=== PATIENT | female | born 1955 | race Caucasian/White ===

== ENCOUNTER 2019-01-12 10:30 | Inpatient (IN) ==
[2019-01-12] MEDS ORDERED: SODIUM CHLORIDE 0.9% 1000ML 1,000 ML IV ONE (10:34)
--- NOTE | 2019-01-12 11:07 | XRay Report ---
XR chest 1V portable CLINICAL HISTORY: Atypical chest pain COMPARISON STUDY: No previous studies for comparison. FINDINGS: The cardiac and mediastinal contours are normal. There is no evidence of focal pulmonary co nsolidation. There is no evidence of failure. No pleural effusions are visualized.[ IMPRESSION: No active disease in the chest. Electronically signed by: Charlie Reynaga M.D. 01/12/2019 11:06 AM
[2019-01-12 11:12] LABS: Basophils # (auto) 0.02 K/uL (0-0.2); Basophils % (auto) 0.2 %; Eosinophils # (auto) 0.06 K/uL (0-0.5); Eosinophils % (auto) 0.7 %; Hematocrit (blood only) 40.8 % (37-47); Hemoglobin 14.4 g/dL (12.0-16.0); Immature Granulocytes # (auto) 0.01 K/uL (0.00-0.02); Immature Granulocytes % (auto) 0.1 %; Lymphocytes # (auto) 3.06 K/uL (1.2-3.4); Lymphocytes % (auto) 33.6 %; Mean Corpuscular Hgb Conc 35.3 g/dL (32-36); Mean Corpuscular Volume 90.9 fL (80-100); Mean Platelet Volume 10.5 fL (7.4-10.4); Monocytes # (auto) 0.73 K/uL (0.11-0.59); Neutrophils # (auto) 5.23 K/uL (1.4-6.5); Neutrophils % (auto) 57.4 %; Platelet Count 224 K/uL (130-400); RDW Coefficient of Variation 13.6 % (11.5-14.5); RDW Standard Deviation 45.2 fL (36.4-46.3); Red Blood Count 4.49 M/uL (4.2-5.4); White Blood Count 9.11 K/uL (4.8-10.8)
[2019-01-12 11:21] LABS: Appearance Urine Clear (Clear); Bacteria Urine Automated Negative (Negative); Bilirubin Urine Negative (Negative); Blood Urine Negative (Negative); Color Urine Yellow; Epithelial Cell Urine Auto 20-30 /lpf (0-5); Glucose Urine UA Negative (Negative); Ketones Urine Negative (Negative); Leukocyte Esterase Urine Trace (Negative); Nitrite Urine Negative (Negative); Protein Urine Negative (Negative); RBC Urine Automated 0-4 /hpf (0-4); Specific Gravity Urine 1.013 (1.000-1.030); Urobilinogen Urine Negative (Negative)
[2019-01-12 11:24] LABS: INR 1.1 (0.9-1.1); Prothrombin Time 10.9 Seconds (9.0-12.0)
[2019-01-12 11:29] LABS: Alanine Aminotransferase 41 U/L (12-78); Albumin Level 3.7 gm/dl (3.4-5.0); Aspartate Aminotransferase 36 U/L (15-37); BUN Creatinine Ratio 11.5 (10-20); Blood Urea Nitrogen 10 mg/dl (7-18); Calcium 8.8 mg/dl (8.5-10.1); Carbon Dioxide 23 mmol/L (21-32); Chloride 111 mmol/L (98-107); Creatinine Clr Calc Pharmacy 60.6 ml/min; Est GFR (African American) 84.5; Est GFR (Non-African American) 72.9; Glucose 126 mg/dl (70-99); Magnesium 2.1 mg/dl (1.8-2.4); Potassium 3.8 mmol/L (3.5-5.1); Sodium 141 mmol/L (136-145)
[2019-01-12 11:40] LABS: Albumin Globulin Ratio 0.9 (0.9-2); Alkaline Phosphatase 53 U/L (45-117); Bilirubin,Total 0.4 mg/dl (0.2-1); Globulin 4.2 gm/dl (2.5-4.0); Phosphorus 3.6 mg/dl (2.5-4.9); Total Protein 7.9 gm/dl (6.4-8.2); Troponin I < 0.015 ng/ml (0-0.045)
[2019-01-12] MEDS ORDERED: ASPIRIN CHEW 324 MG PO STA (12:08)
[2019-01-12] MEDS ORDERED: METOPROLOL TARTRATE 1 MG/ML VIAL IV PRN (12:20)
[2019-01-12] MEDS ORDERED: LORazepam 0.5 MG/1 ML VIAL IV PRN (12:20)
--- NOTE | 2019-01-12 12:53 | History & Physical Report ---
Date of Service January 12, 2019 Assessment & Plan (1) Atrial fibrillation: Reportedly there is monitor strips recorded showing atrial fibrillation we will have the patient on no formal rate controlling medication at this time given her heart rate in the 60s. We will start heparin drip with standard and have PRN metoprolol if needed. Echocardiogram will be performed to evaluate the dimensions of her atria and valvular heart disease and will trend her troponins is initial troponin was negative. If you have difficulty controlling her rate because of her blood pressure limiting beta-kristen use will reduce her losartan dosing. Patient's friend sees Dr. Michel Barone she is interested in seeing him if possible (2) Hypertension: Patient's hypertension is usually controlled with losartan 100 the morning and 50 at night we will continue that regimen unless we need to modify due to blood pressure limiting rate controlling agents (3) Diabetes: Patient is typically controlled metformin 750 twice daily we will use a very loose sliding scale starting at 180 and put on a carbohydrate friendly diet Patient takes gabapentin for diabetic neuropathy 300 twice daily (4) Hypothyroidism: Patient's TSH was checked on presentation and is within normal limits she will continue her Synthroid 50 mcg a day (5) Depression: Patient has been through increased stressors with her who was an alcoholic and limited by stroke in her mother who recently and she did sell her state. She is on Zoloft 100 twice daily and will continue this medicine (6) Tobacco abuse: Patient smokes a pack to pack and half a day of self rolled cigarettes she was counseled on smoking cessation does request a nicotine patch History of Present Illness Primary Care Provider: Aamir Bain MD Patient's with a [place] area, she presents with a rapid heart rate. Patient is been under increasing stressors of late having her mother's home to sell and her is debilitated with a stroke. She saw her doctor yesterday complained of a rapid heartbeat. They ordered a EKG today which confirmed what looks to be A. fib RVR. The patient was in and out of A. fib twice here in our ER and reportedly did receive some medicine by the ambulance in the way here. Upon my exam she was [address] gatica the ER doctor confirmed he believes he saw atrial fibrillation on the monitor. Patient is a diabetic smoker hypertensive does have a Fredi vas risk score. We will anticoagulate her at this time however will not start rate controlling medications as her heart rate is in the 60s. Blood pressure is also controlled with losartan. Patient denies any medical indiscretion she only drinks 2 cups of caffeine a day she keeps up-to-date on her Synthroid and her TSH is normal on presentation. As well as her electrolytes. She is in no elevation of troponin with a rapid rate Allergies Allergy/AdvReac Type Severity Reaction Status Date / Time ciprofloxacin [From Cipro] Allergy Unknown Unverified 01/12/19 11:10 Penicillins Allergy Unknown Unverified 01/12/19 11:10 Sulfa (Sulfonamide Allergy Unknown Unverified 01/12/19 11:10 Antibiotics) PAIN MEDICATIONS Allergy Unknown Uncoded 01/12/19 11:17 Home Medications Home Medications Medication Instructions Recorded Confirmed Type aspirin [Aspirin Low Dose] 81 mg PO DAILY 01/12/19 01/12/19 History gabapentin 300 mg PO BID 01/12/19 01/12/19 History levothyroxine 50 mcg PO DAILY 01/12/19 01/12/19 History losartan 50 mg PO QPM 01/12/19 01/12/19 History losartan 100 mg PO DAILY 01/12/19 01/12/19 History metformin 750 mg PO BID 01/12/19 01/12/19 History sertraline [Zoloft] 100 mg PO BID 01/12/19 01/12/19 History Past Med/Surg History Medical History Hypothyroidism Hypertension Diabetes Anxiety Depression History of cervical cancer History of hysterectomy Small bowel obstruction Patient had surgery for this 2018 Tobacco abuse Surgical History H/O hernia repair Patient has mesh in place H/O lumpectomy History of cholecystectomy Family History Mother Stroke Social History Preferred Language: Kosovan Communication Ability: Effective Beliefs That Will Affect Care: None Current Living Situation: Spouse and Family Feels Safe at Home: Yes Safety Concerns: Feels Safe At This Time Smoking Status: Current every day smoker Tobacco Type: cigarettes ; Cigarettes Per Day: 40 ; Tobacco Cessation Education Requested by Patient: No Hx Alcohol Use: No Hx Substance Use: No Review of Systems Review of Systems: ROS: well nourished well developed. No double vision blurry vision No problems with speech or swallowing No palpitations, chest pain or pressure No Wheezing or breathing issues, chronic daily cough No abdominal pain nausea vomiting diarrhea associate with metformin No burning urine urine frequency or changes in color Diabetic neuropathy of feet and knees No skin rashes or oral lesions No unusual bruising or bleeding No focused back pain or numbness or loss of strength No changes in memory or confusion Physical Exam Physical Exam: The patient appeared well nourished and normally developed. No current distress Vital signs as documented. Sinus rhythm rate of 60 Head exam is unremarkable. normocephalic, atraumatic Neck is without jugular venous distension, thyromegaly, or lymphademopathy Lungs are clear to auscultation and percussion. Cardiac exam reveals Rhythm is regular. No murmurs are heard Abdominal exam reveals normal bowel sounds, no masses, no organomegaly Extremities are nonedematous and both pedal pulses are present Neurologic exam is A&Ox3, no focal deficits, strength is equal bilateral Psychologically seems anxious discussed her stress freely Skin is warm Dry without bruises or lesions Results & Data Vital Signs (Past 12 Hours) Vital Signs Temp Pulse Pulse Resp BP BP Pulse Ox 01/12/19 11:39 63 18 116/47 L 96 01/12/19 10:47 98 01/12/19 10:40 36.7 C 105 H 16 145/87 H 98 EKG shows normal sinus rhythm with a rate of [address] or T wave changes Chest x-ray shows no active disease in the chest PG Care Time/CCT Total # of Minutes Spent Total Time Spent with Patient: Total time spent is greater than 50% in coordination of care (as documented) at patient's floor/unit and/or counseling patient:
[2019-01-12] MEDS ORDERED: ALUMINUM/MAGNESIUM SUSP 30 ML UDC PO PRN (14:08)
[2019-01-12] MEDS ORDERED: GLUCAGON FOR INJ 1 MG VIAL SQ PRN (14:08)
[2019-01-12] MEDS ORDERED: CARBOHYDRATES FOR HYPOGLYCEMIA PO PRN (14:08)
[2019-01-12] MEDS ORDERED: ONDANSETRON INJ 2 MG/ML 2 ML VIAL IV PRN (14:08)
[2019-01-12] MEDS ORDERED: HEPARIN SODIUM/DEXTROSE 25,000 UNITS/500 ML BAG IV SCH (14:08)
[2019-01-12] MEDS ORDERED: GLUCOSE 10 TABS/TUBE PO PRN (14:08)
[2019-01-12] MEDS ORDERED: GLUCOSE 40% GEL 15 GM TUBE PO PRN (14:08)
[2019-01-12] MEDS ORDERED: DEXTROSE 50% 50 ML SYRINGE IV PRN (14:08)
[2019-01-12] MEDS ORDERED: NITROGLYCERIN SL 0.4 MG/TAB TAB SL PRN (14:08)
[2019-01-12] MEDS ORDERED: ACETAMINOPHEN 325 MG TAB PO PRN (14:08)
[2019-01-12 15:01] LABS: Partial Thromboplastin Ratio 0.9; Partial Thromboplastin Time 24.5 Seconds (21.0-31.0)
[2019-01-12] MEDS ORDERED: HEPARIN IV BOLUS 4,000 UNITS in SYRINGE 0 ML IV ONE ×2 (15:30→22:30)
[2019-01-12] MEDS: NICOTINE 21 MG/24 HR TDSY TD SCH (15:36)
--- NOTE | 2019-01-12 15:53 | Emergency Department Note ---
Entered by Ayala Draper acting as a scribe for History of Present Illness General Chief complaint: Cardiac Assessment Time Seen by Provider: 01/12/19 10:31 Source: patient and EMS Mode of arrival: EMS History of Present Illness Provider complaint: atrial fibrillation Onset (ago): minute(s) (Prior to arrival) Location: chest Maximum Pain Intensity: 0 Quality: + other (atrial fibrillation) Associated symptoms: + shortness of breath and + other (Negative pain with exertion); no chest pain and no nausea/vomiting Treatments prior to arrival: other (Medication administered by EMS) The patient is a 63 year old female who presents to the Emergency Room with complaints of atrial fibrillation that she was alerted about just prior to arrival. EMS states that prior to arrival the patient was in atrial fibrillation and went down to 90 after medication. The patient states that for four - five days ago she noticed that her heartbeat was fast but she thought it was due to increased stress. The patient states that she went to the doctor yesterday and t hey noticed she was tachycardic. The patient had a scheduled EKG today and they noticed she was in afib, The patient expresses that she is short of breath. The patient denies nausea, vomiting, diarrhea, chest pain, or pain with exertion. The patient states that she has been spending most of her time cleaning out her mother's house out. The patient denies the use of alcohol, marijuana, but does smoke a pack and a half a day. The patient denies a history of ulcers or abdominal bleeding. Home Medications Home Medications Medication Instructions Recorded Confirmed Type aspirin [Aspirin Low Dose] 81 mg PO DAILY 01/12/19 01/12/19 History gabapentin 300 mg PO BID 01/12/19 01/12/19 History levothyroxine 50 mcg PO DAILY 01/12/19 01/12/19 History losartan 50 mg PO QPM 01/12/19 01/12/19 History losartan 100 mg PO DAILY 01/12/19 01/12/19 History metformin 750 mg PO BID 01/12/19 01/12/19 History sertraline [Zoloft] 100 mg PO BID 01/12/19 01/12/19 History Allergies Allergy/AdvReac Type Severity Reaction Status Date / Time ciprofloxacin [From Cipro] Allergy Unknown Unverified 01/12/19 11:10 Penicillins Allergy Unknown Unverified 01/12/19 11:10 Sulfa (Sulfonamide Allergy Unknown Unverified 01/12/19 11:10 Antibiotics) PAIN MEDICATIONS Allergy Unknown Uncoded 01/12/19 11:17 Past Med/Surg History Medical History Hypothyroidism Hypertension Diabetes Anxiety Depression History of cervical cancer History of hysterectomy Small bowel obstruction Patient had surgery for this 2018 Tobacco abuse Surgical History H/O hernia repair Patient has mesh in place H/O lumpectomy History of cholecystectomy Family History Mother Stroke Social History Preferred Language: Macedonian Communication Ability: Effective Beliefs That Will Affect Care: None Current Living Situation: Spouse and Family Feels Safe at Home: Yes Safety Concerns: Feels Safe At This Time Smoking Status: Current every day smoker Tobacco Type: cigarettes Cigarettes Per Day: 40 Tobacco Cessation Education Requested by Patient: No Hx Alcohol Use: No Hx Substance Use: No Review of Systems See HPI for pertinent positives & negatives. and A total of 10 systems reviewed and were otherwise negative Physical Exam Vital Signs Vital Signs - 24 hr 01/12/19 10:40 01/12/19 10:47 01/12/19 11:39 Temperature 36.7 C Temperature Source Oral Sepsis Recent Fever Within 48 Hours No Sepsis New/Unexplained Change in Mental Status No Sepsis Action Taken by Nursing No Action Required Pulse Rate 105 H Pulse Rate [Apical] 63 Respiratory Rate 16 18 Respiratory Depth Normal Blood Pressure 145/87 H Blood Pressure [Left Arm] 116/47 L Blood Pressure Mean 106 Blood Pressure Mean [Left Arm] 70 Pulse Oximetry 98 98 96 Oxygen Delivery Method Room Air Room Air Room Air GENERAL: Awake, alert, fatigued-appearing, in no distress HENT: Normocephalic, atraumatic. Oropharynx with dry mucous membranes and otherwise unremarkable. EYES: Normal conjunctiva. Sclera non-icteric. NECK: Supple. No nuchal rigidity. FROM. No JVD. RESPIRATORY: Scant intermittent wheeze, otherwise clear. CARDIAC: Heart rate tachycardic and irregular. Extremities warm and well perfused. Pulses equal. ABDOMEN: Soft, non-distended. No tenderness to palpation. No rebound or guarding. No masses. RECTAL: Deferred. MUSCULOSKELETAL: Chest examination reveals no tenderness. The back is sym metrical on inspection without obvious abnormality. There is no CVA tenderness to palpation. No joint edema. LOWER EXTREMITIES: Calves are equal size bilaterally and non-tender. No edema. No discoloration. NEURO: Normal sensorium. No sensory or motor deficits noted. SKIN: No rash or jaundice noted. Course 1042: Past medical records reviewed. The patient was evaluated in room A3. A complete history and physical exam was performed. 1211: I reviewed the patient's case with Dr. Dudley - [facility] Hospitalist. He will evaluate the patient for further management. Consultations Consultation #1: I reviewed the patient's case with Dr. Dudley - [facility] Hospit alist. He will evaluate the patient for further management. Time: 12:11 Administered Medications Heparin Sodium/Dextrose (Heparin Sodium/Dextrose) 25,000 units in 500 mls @ 20 mls/hr IV .Q24H [facility]; Protocol Stop: 02/11/19 14:07 Last Admin: 01/12/19 15:35 Dose: 1,000 units/hr, 20 mls/hr Documented by: [id number] Cosigned by: [id number] Insulin Aspart (Novolog Flexpen) 0 units SC ACHS [facility] Stop: 02/11/19 16:29 Last Admin: 01/12/19 16:55 Dose: Not Given Documented by: [id number] Cosigned by: [id number] Nicotine (Nicoderm Cq) 21 mg TD QAM [facility] Stop: 02/11/19 14:29 Last Admin: 01/12/19 15:36 Dose: 21 mg Documented by: [id number] Discontinued Medications Aspirin (Aspirin) 324 mg PO NOW STA Stop: 01/12/19 12:09 Last Admin: 01/12/19 12:21 Dose: 324 mg Documented by: [id number] Sodium Chloride (Nss 1000ml) 1,000 mls @ 999 mls/hr IV .Q1H1M ONE Stop: 01/12/19 11:34 Last Infusion: 01/12/19 12:11 Dose: 0 mls/hr Documented by: [id number] Admin: 01/12/19 11:09 Dose: 999 mls/hr Documented by: [id number] Heparin Sodium (Porcine) 4,000 (units/ Syringe) 4 mls @ 10 mls/min IV NOW ONE Stop: 01/12/19 15:31 Last Admin: 01/12/19 15:40 Dose: 10 mls/min Documented by: [id number] Cosigned by: [id number] Medical Decision Making Differential Diagnosis Differential diagnosis includes: premature contractions, electrolyte abnormality, cardiac dysrhythmia, thyroid dysfunction, pulmonary embolism, infection, gastrointestinal, as well as others were entertained. Medical Records Attestation: I reviewed the patient's medical records. Home Medications Current Medication List: was personally reviewed by me Laboratory Data Attestation: I reviewed the patient's lab results. Result diagrams: 01/12/19 11:00 01/12/19 11:00 Lab Results 01/12/19 01/12/19 01/12/19 Range/Units 11:00 11:00 11:00 WBC 9.11 (4.8-10.8) K/uL RBC 4.49 (4.2-5.4) M/uL Hgb 14.4 (12.0-16.0) g/dL Hct 40.8 (37-47) % MCV 90.9 (80-100) fL MCH 32.1 (25-34) pg MCHC 35.3 (32-36) g/dL RDW Std Deviation 45.2 (36.4-46.3) fL RDW Coeff of [place] 13.6 (11.5-14.5) % Plt Count 224 (130-400) K/uL MPV 10.5 H (7.4-10.4) fL Immature Gran % (Auto) 0.1 % Neut % (Auto) 57.4 % Lymph % (Auto) 33.6 % [place] % (Auto) 8.0 % Eos % (Auto) 0.7 % Baso % (Auto) 0.2 % Immature Gran # (Auto) 0.01 (0.00-0.02) K/uL Neut # (Auto) 5.23 (1.4-6.5) K/uL Lymph # (Auto) 3.06 (1.2-3.4) K/uL [place] # (Auto) 0.73 H (0.11-0.59) K/uL Eos # (Auto) 0.06 (0-0.5) K/uL Baso # (Auto) 0.02 (0-0.2) K/uL PT 10.9 (9.0-12.0) Seconds INR 1.1 (0.9-1.1) APTT (21.0-31.0) Seconds PTT Ratio Sodium 141 (136-145) mmol/L Potassium 3.8 (3.5-5.1) mmol/L Chloride 111 H (98-107) mmol/L Carbon Dioxide 23 (21-32) mmol/L Anion Gap 7.0 (3-11) BUN 10 (7-18) mg/dl Creatinine 0.84 (0.6-1.2) mg/dl Est Cr Clr Drug Dosing 60.6 ml/min Est GFR ( Amer) 84.5 Est GFR (Non-Af Amer) 72.9 BUN/Creatinine Ratio 11.5 (10-20) Glucose 126 H (70-99) mg/dl Calcium 8.8 (8.5-10.1) mg/dl Phosphorus 3.6 (2.5-4.9) mg/dl Magnesium 2.1 (1.8-2.4) mg/dl Total Bilirubin 0.4 (0.2-1) mg/dl AST 36 (15-37) U/L ALT 41 (12-78) U/L Alkaline Phosphatase 53 (45-117) U/L Troponin I < 0.015 (0-0.045) ng/ml Total Protein 7.9 (6.4-8.2) gm/dl Albumin 3.7 (3.4-5.0) gm/dl Globulin 4.2 H (2.5-4.0) gm/dl Albumin/Globulin Ratio 0.9 (0.9-2) Lipase 262 (73-393) U/L TSH 3.210 (0.300-4.500) uIu/ml Urine Color Urine Appearance (Clear) Urine pH (4.5-7.5) Ur Specific [place] (1.000-1.030) Urine Protein (Negative) Urine Glucose (UA) (Negative) Urine Ketones (Negative) Urine Blood (Negative) Urine Nitrite (Negative) Urine Bilirubin (Negative) Urine Urobilinogen (Negative) Ur Leukocyte Esterase (Negative) Urine WBC (Auto) (0-5) /hpf Urine RBC (Auto) (0-4) /hpf U Hyaline Cast (Auto) (0-5) /lpf U Epithel Cells (Auto) (0-5) /lpf Urine Bacteria (Auto) (Negative) 01/12/19 01/12/19 Range/Units 11:00 11:05 WBC (4.8-10.8) K/uL RBC (4.2-5.4) M/uL Hgb (12.0-16.0) g/dL Hct (37-47) % MCV (80-100) fL MCH (25-34) pg MCHC (32-36) g/dL RDW Std Deviation (36.4-46.3) fL RDW Coeff of [place] (11.5-14.5) % Plt Count (130-400) K/uL MPV (7.4-10.4) fL Immature Gran % (Auto) % Neut % (Auto) % Lymph % (Auto) % [place] % (Auto) % Eos % (Auto) % Baso % (Auto) % Immature Gran # (Auto) (0.00-0.02) K/uL Neut # (Auto) (1.4-6.5) K/uL Lymph # (Auto) (1.2-3.4) K/uL [place] # (Auto) (0.11-0.59) K/uL Eos # (Auto) (0-0.5) K/uL Baso # (Auto) (0-0.2) K/uL PT (9.0-12.0) Seconds INR (0.9-1.1) APTT 24.5 (21.0-31.0) Seconds PTT Ratio 0.9 Sodium (136-145) mmol/L Potassium (3.5-5.1) mmol/L Chloride (98-107) mmol/L Carbon Dioxide (21-32) mmol/L Anion Gap (3-11) BUN (7-18) mg/dl Creatinine (0.6-1.2) mg/dl Est Cr Clr Drug Dosing ml/min Est GFR ( Amer) Est GFR (Non-Af Amer) BUN/Creatinine Ratio (10-20) Glucose (70-99) mg/dl Calcium (8.5-10.1) mg/dl Phosphorus (2.5-4.9) mg/dl Magnesium (1.8-2.4) mg/dl Total Bilirubin (0.2-1) mg/dl AST (15-37) U/L ALT (12-78) U/L Alkaline Phosphatase (45-117) U/L Troponin I (0-0.045) ng/ml Total Protein (6.4-8.2) gm/dl Albumin (3.4-5.0) gm/dl Globulin (2.5-4.0) gm/dl Albumin/Globulin Ratio (0.9-2) Lipase (73-393) U/L TSH (0.300-4.500) uIu/ml Urine Color Yellow Urine Appearance Clear (Clear) Urine pH 5.0 (4.5-7.5) Ur Specific [place] 1.013 (1.000-1.030) Urine Protein Negative (Negative) Urine Glucose (UA) Negative (Negative) Urine Ketones Negative (Negative) Urine Blood Negative (Negative) Urine Nitrite Negative (Negative) Urine Bilirubin Negative (Negative) Urine Urobilinogen Negative (Negative) Ur Leukocyte Esterase Trace H (Negative) Urine WBC (Auto) 1-5 (0-5) /hpf Urine RBC (Auto) 0-4 (0-4) /hpf U Hyaline Cast (Auto) 1-5 (0-5) /lpf U Epithel Cells (Auto) 20-30 H (0-5) /lpf Urine Bacteria (Auto) Negative (Negative) Imaging Data Radiologist's Impression: Radiology results as stated below per my review and the radiologist's interpretation: XR chest 1V portable CLINICAL HISTORY: Atypical chest pain COMPARISON STUDY: No previous studies for comparison. FINDINGS: The cardiac and mediastinal contours are normal. There is no evidence of focal pulmonary consolidation. There is no evidence of failure. No pleural effusions are visualized.[ IMPRESSION: No active disease in the chest. Electronically signed by: Charlie Reynaga M.D. 01/12/2019 11:06 AM ECG Data Attestation: I personally reviewed and interpreted this ECG as follows: Indication: chest pain Rate (beats per minute): 73 Rhythm: atrial fibrillation (Went back into AFIB) and normal sinus Findings: + other (normal axis); no acute ischemic change Blood Pressure Blood Pressure Findings: Normal blood pressure MDM Narrative The patient is a pleasant 63-year-old woman with a past medical history of hypertension, diabetes, smoking who presents emergency department from outpatient clinic for new onset A. fib after she was seen yesterday for tachycardia with scheduled EKG today that demonstrated A. fib with RVR per hpi. 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 On arrival patient is in no acute distress, afebrile stable vital signs. Patient's initial EKG in the emergency department was sinus rhythm after receiving 15 mg of diltiazem and route by EMS which I had approved on med command call. However while talking the patient she would convert back to A. fib on monitor, though rate controlled. Upon IV fluid hydration she converted again to sinus rhythm with HR 60s. Otherwise there is no overt acute ischemia on patient's EKG. Chest x-ray is negative. Troponin negative. WBC, H/H, platelets wnl. Chemistry without acidosis. LFTs and electr olytes unremarkable. UA negative for infection. Given the patient's chest pain in association with a new onset A. fib reasonable to admit the patient for further cardiac evaluation. Heart score, 5, moderate risk. Will defer decision for anticoagulation to admitting team. Case was discussed with Dr. Dudley, [facility] hospitalist, who evaluate the patient for admission. Impression & Plan New onset atrial fibrillation, Substernal chest pain Discharge Plan Visit Data *Final* Discharge Date/Time: 01/12/19 13:41 Chief Complaint: Cardiac Assessment ED Provider: Reginald Gatica Discharge Problem: New onset atrial fibrillation, Substernal chest pain Patient Disposition: Admitted As Inpatient Discharge Instructions Interventions: ED Discharge Assessment Last Done: 01/12/19 13:41 The scribe's documentation has been prepared under my direction and personally reviewed by me in its entirety. I confirm that the note above accurately reflects all work, treatment, procedures, and medical decision making performed by me.
[2019-01-12] MEDS: INSULIN ASPART 100 UNITS/ML 3 ML PEN SC SCH ×2 (16:55→21:13)
[2019-01-12 19:37] LABS: Lyme Ab IgG w/WB Rflx Negative (Negative); Lyme Ab IgM w/WB Rflx Negative (Negative)
[2019-01-12] MEDS: GABAPENTIN 300 MG CAP PO SCH (20:24)
[2019-01-12] MEDS: LOSARTAN POTASSIUM 50 MG TAB PO SCH (20:25)
[2019-01-12] MEDS: SERTRALINE HCL 100 MG TABLET PO SCH (20:25)
[2019-01-12 21:33] LABS: Partial Thromboplastin Ratio 1.5; Partial Thromboplastin Time 40.2 Seconds (21.0-31.0)
[2019-01-13 05:22] LABS: Partial Thromboplastin Ratio 2.5
[2019-01-13 05:33] LABS: Partial Thromboplastin Time 67.5 Seconds (21.0-31.0)
[2019-01-13] MEDS: LEVOTHYROXINE SODIUM 50 MCG TABLET PO SCH (05:40)
[2019-01-13 07:00] LABS: BUN Creatinine Ratio 11.2 (10-20); Blood Urea Nitrogen 9 mg/dl (7-18); Carbon Dioxide 27 mmol/L (21-32); Chloride 110 mmol/L (98-107); Cholesterol 105 mg/dl (0-200); Creatinine Clr Calc Pharmacy 59.5 ml/min; Est GFR (African American) 84.5; Est GFR (Non-African American) 72.9; Glucose 111 mg/dl (70-99); Potassium 3.9 mmol/L (3.5-5.1); Sodium 142 mmol/L (136-145); Triglycerides 208 mg/dl (0-150); VLDL Cholesterol 42 mg/dl
[2019-01-13 07:04] LABS: Chol HDL Ratio 3; HDL Cholesterol 33 mg/dl; LDL Cholesterol Calculated 30 mg/dl; Troponin I < 0.015 ng/ml (0-0.045)
[2019-01-13 07:33] LABS: Estimated Average Glucose 140 mg/dl; Hemoglobin A1C 6.5 % (4.5-5.6)
[2019-01-13] MEDS: ASPIRIN 81 MG ECTAB PO SCH (08:26)
[2019-01-13] MEDS: LOSARTAN POTASSIUM 50 MG TAB PO SCH ×2 (08:27→19:47)
[2019-01-13] MEDS: GABAPENTIN 300 MG CAP PO SCH ×2 (08:27→19:47)
[2019-01-13] MEDS: SERTRALINE HCL 100 MG TABLET PO SCH ×2 (08:29→19:46)
[2019-01-13] MEDS: NICOTINE 21 MG/24 HR TDSY TD SCH (08:29)
[2019-01-13] MEDS: INSULIN ASPART 100 UNITS/ML 3 ML PEN SC SCH ×4 (08:59→20:52)
[2019-01-13 12:02] LABS: Partial Thromboplastin Ratio 1.7
[2019-01-13 12:14] LABS: Partial Thromboplastin Time 46.7 Seconds (21.0-31.0)
--- NOTE | 2019-01-13 16:01 | Cardiology Consultation ---
Date of Consultation January 13, 2019 Assessment & Plan (1) Atrial fibrillation: She has well-documented paroxysmal atrial fibrillation at a rapid heart rate. Based on her symptoms this is a recent finding, since she has quite significant symptoms I am inclined to believe that that is the case. 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 I think the best option at the moment is to try rhythm control, since the episodes are paroxysmal and she is quite symptomatic we should be able to determine efficacy. If that does not work we may have to consider either ablation or pacemaker implantation with rate control. I am going to start her on Multaq since she may have ischemic heart disease and that tends not to slow sinus rate substantially. I agree she will need anticoagulation. (2) Substernal chest pain: She describes chest discomfort and bilateral arm discomfort associated with the palpitations. Her electrocardiogram shows ST depression during tachyca rdia and minor changes at rest. She does have a lot of risk factors for coronary artery disease but presumably has had stress test in the past that have not shown coronary artery disease, additionally she has completely negative cardiac enzymes which is a little surprising if she has significant obstructive disease. We could consider stress testing, I would not go directly to catheterization. I am inclined however to treat her medically since she should be on risk factor modification for coronary disease anyhow which would include stopping smoking, statin and diet therapy. I am not sure whether she should be on aspirin, at the moment I would probably hold off on that. Since she only has symptoms during atrial fibrillation and seems not to have them with exertion I do not know that we need further evaluation at this time. History of Present Illness Reason for Consultation: Atrial fibrillation, chest discomfort Attending Physician: Steffen Zaman History of Present Illness This is a 63-year-old woman with a history of hypertension, diabetes mellitus and tobacco abuse. She presents with what she describes as a 1 week history of intermittent palpitations associated with symptoms of bilateral arm discomfort. The discomfort is quite specifically associated with the palpitations, she has never had the arm discomfort at any other time. She tells me that she is quite active and other than some dyspnea on exertion (which may be due to her smoking) does not have exertional symptoms. She does not recall having these palpitations or the arm discomfort prior to about a week ago. Of note she has had a number of stress tests in the past, the last one perhaps 3 years ago, at various hospitals and she is not specifically aware of the results but was never told that she needed any further testing. She does not feel that she can walk on a treadmill. She has had documentation of her palpitations both as an outpatient prior to coming to the emergency room and in the emergency room where they are associated with atrial fibrillation and a heart rate of about 150 bpm. There are 12 leads of the arrhythmia which demonstrate an anterior ST depression. Allergies Allergy/AdvReac Type Severity Reaction Status Date / Time ciprofloxacin [From Cipro] Allergy Unknown Unverified 01/12/19 11:10 Penicillins Allergy Unknown Unverified 01/12/19 11:10 Sulfa (Sulfonamide Allergy Unknown Unverified 01/12/19 11:10 Antibiotics) PAIN MEDICATIONS Allergy Unknown Uncoded 01/12/19 11:17 Home Medications Home Medications Medication Instructions Recorded Confirmed Type aspirin [Aspirin Low Dose] 81 mg PO DAILY 01/12/19 01/12/19 History gabapentin 300 mg PO BID 01/12/19 01/12/19 History levothyroxine 50 mcg PO DAILY 01/12/19 01/12/19 History losartan 50 mg PO QPM 01/12/19 01/12/19 History losartan 100 mg PO DAILY 01/12/19 01/12/19 History metformin 750 mg PO BID 01/12/19 01/12/19 History sertraline [Zoloft] 100 mg PO BID 01/12/19 01/12/19 History Patient History Medical History Hypothyroidism Hypertension Diabetes Anxiety Depression History of cervical cancer History of hysterectomy Small bowel obstruction Patient had surgery for this 2018 Tobacco abuse Surgical History H/O hernia repair Patient has mesh in place H/O lumpectomy History of cholecystectomy Family History Mother Stroke Social History Preferred Language: Wolof Communication Ability: Effective Beliefs That Will Affect Care: None Current Living Situation: Spouse and Family Feels Safe at Home: Yes Safety Concerns: Feels Safe At This Time Smoking Status: Current every day smoker Tobacco Type: cigarettes ; Cigarettes Per Day: 40 ; Tobacco Cessation Education Requested by Patient: No Hx Alcohol Use: No Hx Substance Use: No Review of Systems Review of Systems: All systems reviewed & are unremarkable except as noted in HPI & below Physical Exam Physical Exam: Constitutional: Alert, cooperative and in no distress. HEENT: Unremarkable Neck: No jugular venous distention, carotid pulses are normal and equal bilaterally without bruits. Pulmonary: Clear to auscultation bilaterally with decreased breath sounds. Cardiac: Regular rhythm with no murmur, gallop or rub. Abdomen: Soft, nontender with normal bowel sounds. Extremities: No edema. Distal pulses intact. Neurologic: No focal findings. Gait is steady. Skin: No rash, ecchymoses or petechiae. Results & Data Vital Signs (Past 12 Hours) Vital Signs Temp Pulse Pulse Resp BP Pulse Ox 01/13/19 11:46 36.8 C 69 18 154/82 H 96 01/13/19 08:00 53 L 01/13/19 07:41 37.0 C 61 18 120/82 96 Diagnostic Findings Electrocardiogram: There are several electrocardiograms to review, during atrial fibrillation she has a rapid heart rate and does have anterolateral ST depression which could be consistent with ischemia. Additionally she has electrocardiograms during sinus rhythm where her heart rate is somewhat slow and she has some minor lateral ST-T abnormalities but no ST depression. Telemetry monitoring shows intermittent atrial fibrillation on initial presentation to the emergency room, and then sinus rhythm or sinus bradycardia thereafter. PG Care Time/CCT Total # of Minutes Spent Total Time Spent with Patient: Total time spent is greater than 50% in coordination of care (as documented) at patient's floor/unit and/or counseling patient:
[2019-01-13] MEDS: APIXABAN 2.5 MG TAB PO SCH (19:47)
[2019-01-13] MEDS: DRONEDARONE HCL 400 MG TAB PO SCH (19:47)
--- NOTE | 2019-01-13 21:44 | Hospitalist Progress Note ---
Date of Service January 13, 2019 Assessment & Plan (1) Atrial fibrillation: PAF - resolved. No a.fib since admission. Pre-hospital EKGs, however, clearly show a.fib. CHADS score is high - anticoagulation indicated. <$10/month for eliquis -- will start such at 5mg BID. Stop heparin infusion. Her HRs while in NSR are low or low-normal. I believe this would make using an AV james agent difficult. I asked Dr Loza to see her in consult for consideration of anti-arrhythmic therapy - defer that decision to him. TSH, K, mag all normal. Echo with preserved EF and preserved valve function. Trops neg x 3. Present on Admission?: Yes (2) Substernal chest pain: During times of rapid a.fib the patient feels terrible. Her symptoms -- chest pressure, left subcostal pain, nausea, b/l arm symptoms -- these are concerning for ischemia. Although perhaps some of the symptoms could be from the a.fib itself I am concerned she could be having ischemia from undiagnosed CAD. CAD risk factors - strong family Hx, long-standing tobacco use, T2DM, HTN, hyperlipidemia. I spoke with Dr Loza about her symptoms -- outpatient stress test? Fortunately troponins were negative here. Cont asa. pt reports statin use but not on MAR - will look into this. Present on Admission?: Yes (3) Hypertension: Cont home regimen of losartan. (4) Diabetes: controlled. a1c <7%. resume metformin at d/c. (5) Hypothyroidism: TSH wnl. Cont Synthroid 50 mcg daily. (6) Depression: Cont Zoloft 100 twice daily. (7) Tobacco abuse: Nicoderm patch. Overhead [employer] to quit. (8) DVT prophylaxis: eliquis BID I certify that the inpatient services were ordered in accordance with Medicare regulations governing the order. This includes certification that hospital inpatient services are reasonable and necessary and in the case of services not specified as inpatient-only under 42 CFR 419.22(n), that they are appropriately provided as inpatient services in accordance to with the 2-midnight benchmark under 43 CFR 412.3(e) change from OBS to full admission status. Subjective since admission to tele unit patient has had NO a.fib on monitor. multiple pre-hospital EKGs with a.fib. patient is poor historian but it sounds like she was going in/out of a.fib since Wednesday of this week. each time she would develop rapid a.fib at home she had discrete palpitations. during times of a.fib at home she would have pain under her left rib cage, nausea, chest pressure and sometimes even b/l hand & arm numbness/pain. "I felt terrible" [each time she was in a.fib] she denies recent exertional chest pain or dyspnea but has had worsening fatigue in the last 2-3 months. last stress test - 2 years ago in [place] w/ Dr Hoffman. sister, father, and multiple paternal relatives (uncles, etc) with CAD/stents/MIs. mother had a.fib. Review of Systems Constitutional: no fever and no chills Respiratory: no cough and no dyspnea Cardiovascular: no chest pain, no orthopnea and no paroxysmal nocturnal dyspnea Gastrointestinal: no abdominal pain, no nausea, no vomiting and no diarrhea/loose stools Physical Exam Constitutional: no acute distress and no altered mental status ENMT: external ear and nose normal, oropharynx normal Respiratory: normal respiratory effort, lungs clear to auscultation Cardiovascular: Rate/Rhythm: regular rate and regular rhythm Heart Sounds: normal S1 and normal S2; no murmur Vessels: posterior tibial pulses present and dorsalis pedis pulses present; no JVD Gastrointestinal (Abdomen): normal bowel sounds, soft, nontender, no hepatosplenomegaly Psychiatric: A+Ox3, euthymic affect Results & Data Vital Signs (Past 12 Hours) Vital Signs Temp Pulse Resp BP BP Pulse Ox 01/13/19 19:25 37.0 C 50 L 19 125/72 93 01/13/19 15:33 36.4 C L 64 19 137/67 98 01/13/19 11:46 36.8 C 69 18 154/82 H 96 Laboratory Results Laboratory Results - last 24 hr 01/13/19 01/13/19 01/13/19 04:37 06:06 06:06 APTT 67.5 H* PTT Ratio 2.5 Sodium 142 Potassium 3.9 Chloride 110 H Carbon Dioxide 27 Anion Gap 5.0 BUN 9 Creatinine 0.84 Est Cr Clr Drug Dosing 59.5 Est GFR ( Amer) 84.5 Est GFR (Non-Af Amer) 72.9 BUN/Creatinine Ratio 11.2 Glucose 111 H POC Glucose Estimat Average Glucose 140 Hemoglobin A1c 6.5 H Calcium 9.0 Troponin I < 0.015 Triglycerides 208 H Cholesterol 105 LDL Cholesterol, Calc 30 VLDL Cholesterol, Calc 42 HDL Cholesterol 33 Cholesterol/HDL Ratio 3 01/13/19 01/13/19 01/13/19 07:23 11:23 11:32 APTT 46.7 H* PTT Ratio 1.7 Sodium Potassium Chloride Carbon Dioxide Anion Gap BUN Creatinine Est Cr Clr Drug Dosing Est GFR ( Amer) Est GFR (Non-Af Amer) BUN/Creatinine Ratio Glucose POC Glucose 119 H 115 H Estimat Average Glucose Hemoglobin A1c Calcium Troponin I Triglycerides Cholesterol LDL Cholesterol, Calc VLDL Cholesterol, Calc HDL Cholesterol Cholesterol/HDL Ratio 01/13/19 01/13/19 16:26 20:19 APTT PTT Ratio Sodium Potassium Chloride Carbon Dioxide Anion Gap BUN Creatinine Est Cr Clr Drug Dosing Est GFR ( Amer) Est GFR (Non-Af Amer) BUN/Creatinine Ratio Glucose POC Glucose 113 H 132 H Estimat Average Glucose Hemoglobin A1c Calcium Troponin I Triglycerides Cholesterol LDL Cholesterol, Calc VLDL Cholesterol, Calc HDL Cholesterol Cholesterol/HDL Ratio PG Care Time/CCT Total # of Minutes Spent Total Time Spent with Patient: Total time spent is greater than 50% in coordination of care (as documented) at patient's floor/unit and/or counseling patient: (1) Diabetes Diabetes mellitus type: type 2 Diabetes mellitus intermodal truck driver insulin use: without intermodal truck driver use Diabetes mellitus complication status: without complication Qualified Code(s): E11.9 - Type 2 diabetes mellitus without complications (2) Atrial fibrillation Atrial fibrillation type: paroxysmal Qualified Code(s): I48.0 - Paroxysmal atrial fibrillation (3) Depression Depression Type: other depression Qualified Code(s): F32.89 - Other specified depressive episodes (4) Hypothyroidism Hypothyroidism type: acquired Qualified Code(s): E03.9 - Hypothyroidism, unspecified (5) Hypertension Hypertension type: essential hypertension Qualified Code(s): I10 - Essential (primary) hypertension
[2019-01-14] MEDS: LEVOTHYROXINE SODIUM 50 MCG TABLET PO SCH (05:28)
[2019-01-14 05:51] LABS: Hemoglobin 13.2 g/dL (12.0-16.0); Mean Corpuscular Hgb Conc 33.8 g/dL (32-36); Mean Corpuscular Volume 91.5 fL (80-100); Platelet Count 185 K/uL (130-400); RDW Coefficient of Variation 13.6 % (11.5-14.5); RDW Standard Deviation 45.6 fL (36.4-46.3); Red Blood Count 4.26 M/uL (4.2-5.4); White Blood Count 7.26 K/uL (4.8-10.8)
[2019-01-14 06:22] LABS: BUN Creatinine Ratio 10.5 (10-20); Creatinine Clr Calc Pharmacy 52.6 ml/min; Est GFR (African American) 72.8; Est GFR (Non-African American) 62.9
[2019-01-14] MEDS: GABAPENTIN 300 MG CAP PO SCH (08:21)
[2019-01-14] MEDS: SERTRALINE HCL 100 MG TABLET PO SCH (08:21)
[2019-01-14] MEDS: LOSARTAN POTASSIUM 50 MG TAB PO SCH (08:22)
[2019-01-14] MEDS: APIXABAN 2.5 MG TAB PO SCH (08:22)
[2019-01-14] MEDS: DRONEDARONE HCL 400 MG TAB PO SCH (08:22)
[2019-01-14] MEDS: ASPIRIN 81 MG ECTAB PO SCH (08:22)
[2019-01-14] MEDS: NICOTINE 21 MG/24 HR TDSY TD SCH (08:22)
[2019-01-14] MEDS: INSULIN ASPART 100 UNITS/ML 3 ML PEN SC SCH ×2 (08:25→12:06)
--- NOTE | 2019-01-14 12:02 | Cardiology Progress Note ---
Date of Service January 14, 2019 Subjective She feels well today she denies any chest pain chest pressure chest heaviness today. She denies any palpitations. Lightheadedness dizziness presyncope or syncope. She denies any lower extremity edema. She has any bleeding bruising dark stools or black stools. Results & Data Vital Signs (Past 12 Hours) Vital Signs Temp Pulse Resp BP BP Pulse Ox 01/14/19 11:37 36.8 C 58 L 16 117/67 99 01/14/19 07:27 36.9 C 64 16 122/69 95 01/14/19 03:26 36.6 C 63 15 112/57 L 96 Constitutional: Alert, cooperative and in no distress. HEENT: 2+ carotid upstrokes No jugular venous distention, carotid pulses are normal and equal bilaterally without bruits. Pulmonary: Clear to auscultation bilaterally with decreased breath sounds. Cardiac: Regular rhythm with no murmur, gallop or rub. Abdomen: Soft, nontender with normal bowel sounds. Extremities: No edema. Neurologic: No focal findings. 1. Symptomatic paroxysmal atrial fibrillation 2. Tachybradycardia syndrome 3. Tobacco abuse 4. ST changes and chest discomfort associated with her atrial fibrillation 5. Normal biventricular size and function 6. Chads 2 Vasc score of 4 She will be discharged home on Multitak 400 mg twice daily along with apixaban 5 mg twice daily. She will remain on losartan for her blood pressure control. She wishes to follow-up with [facility] physician group upon discharge. We will arrange for that in the next 2 weeks. She will need close monitoring of her heart rate to make sure that she does not have excessive bradycardia given the concern for tachybradycardia syndrome and the fact that Multitak will slow her sinus rate. Additionally given her ST depression and chest discomfort associated with atrial fibrillation she should have an outpatient stress test given her multiple risk factors for coronary artery disease to rule out ischemia. All this was discussed with the hospitalist service. She may be discharged home today.
[2019-01-14] MEDS ORDERED: DRONEDARONE HCL 400 MG TAB PO SCH ×2 (13:00→21:00)
--- NOTE | 2019-01-19 06:14 | Discharge Summary ---
Date of Service date of admission - January 12, 2019 date of discharge - January 14, 2019 Admission HPI Per Admitting Provider 63yo female with history of chronic tobacco use, HTN, T2DM, and hyperlipidemia who presented with palpitations and new-onset a.fib. 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 She saw her doctor yesterday and complained of a rapid heartbeat. They ordered an EKG today which confirmed A. fib with RVR. The patient was in and out of A. fib twice in our ER upon presentation and reportedly did receive some medicine by the ambulance in the way here. Additionally the patient reported that during times of rapid heart beating "she feels terrible." She mentioned chest discomfort, bilateral arm and hand discomfort, and pain under the left rib cage. There is a strong family history of CAD with her father, sister, and multiple paternal relatives all having had such. Principal Diagnosis paroxysmal a.fib Discharge Exam Constitutional no acute distress and no altered mental status ENMT external ear and nose normal, oropharynx normal Respiratory normal respiratory effort, lungs clear to auscultation Cardiovascular Rate/Rhythm: regular rate and regular rhythm Heart Sounds: normal S1 and normal S2; no murmur Vessels: posterior tibial pulses present and dorsalis pedis pulses present; no JVD Gastrointestinal (Abdomen) normal bowel sounds, soft, nontender, no hepatosplenomegaly Psychiatric A+Ox3, euthymic affect Discharge Data Allergies Allergy/AdvReac Type Severity Reaction Status Date / Time ciprofloxacin [From Cipro] Allergy Unknown Unverified 01/12/19 11:10 Penicillins Allergy Unknown Unverified 01/12/19 11:10 Sulfa (Sulfonamide Allergy Unknown Unverified 01/12/19 11:10 Antibiotics) PAIN MEDICATIONS Allergy Unknown Uncoded 01/12/19 11:17 Consultations cardiology - Bolivar Loza MD Procedures Performed echocardiogram - * EF 65-70% * no regional wall motion abnormalities * normal valve function Hospital Course (1) Atrial fibrillation: PAF - multiple EKGs and tele strips (all pre-hospital) confirmed a.fib. Following admission she did not have any further PAF. Troponins were negative x 3. Echo showed normal LV function, normal atria, and normal valves. TSH, K, and mag were all normal. CHADS score was high - anticoagulation indicated. <$10/month for eliquis -- started such at 5mg BID. Prior to eliquis she received IV heparin. Her HRs while in NSR were either low or low-normal. This would make using an AV james agent difficult. Thus, Dr Bolivar Loza from cardiology was consulted for consideration of anti-arrhythmic therapy. Ultimately the patient was placed on Multaq 400mg twice daily. She tolerated this without difficulty. She will need close follow-up with Dr Loza for the PAF as well as her reported symptoms of chest discomfort. She has 5+ risk factors for CAD and ischemic work-up will be needed. (2) Substernal chest pain: During times of rapid a.fib the patient reported feeling poorly. Her symptoms included chest pressure, left subcostal pain, nausea, b/l arm symptoms -- concerning for ischemia. Although perhaps some of the symptoms could be from the a.fib itself there is concern she could be having ischemia from undiagnosed CAD. CAD risk factors - strong family history, long-standing tobacco use, T2DM, HTN, hyperlipidemia. Fortunately troponins were negative x 3. She will continue daily aspirin therapy. She will continue daily statin therapy. Outpatient stress test likely to be pursued. Last known stress test was ~2 years ago in [place] and was reportedly negative. (3) Hypertension: Continue home regimen of losartan. (4) Diabetes: controlled. a1c <7%. resumed metformin at d/c. (5) Hypothyroidism: TSH wnl. Cont Synthroid 50 mcg daily. (6) Depression: Cont Zoloft 100 twice daily. (7) Tobacco abuse: Nicoderm patch. Counseled to quit. Total Time Total Time Spent Total Time Spent (In Minutes): 40 Total Time Includes: Examination of the Patient, Discharge Planning, Medication Reconciliation and Communication With Other Providers Discharge Plan Discharge Items Patient Disposition: Home - Self-Care Reason For Visit: new onset atrial fibrillation Discharge Diagnosis: new onset atrial fibrillation - resolved. Heart rhythm has returned to normal. Discharge Goals: Diagnostic testing and Therapeutic intervention Activity: Resume your previous activity Non-emergency contact: Primary Care Provider and Sales Enablement Lead Call non-emergency contact if: you have any medication questions and your symptoms worsen Follow-up/Referrals: Bolivar Loza MD [Physician] - (see Dr Loza in about 2 weeks for your a.fib) Aamir Bain MD [Primary Care Provider] - 01/18/19 3:00 pm (Please, follow up with Dr. Bain on WednesdayJanuary 18 at 3:00 pm. *If you need to change this appointment, call his office at [phone].) Diet: Carb Consistent or DM2 and Heart Healthy Add Provider Instructions: You were admitted for a heart rhythm called atrial fibrillation ("a. fib"). This is an irregular heart rhythm originating from the top portion of your heart. By the time you were admitted the a.fib resolved and you were back in normal rhythm. You had no evidence of heart attack. Your heart ultrasound (echocardiogram) was normal. You were seen by the [facility] Sales Enablement Lead and the following were recommended - 1. eliquis blood thinner -- 5mg twice daily every day. This is to prevent blood clot formation in your heart from the a.fib thereby lowering your risk of stroke. 2. multaq (dronedarone) 400mg twice daily every day. This is a medication to keep your heart in normal rhythm. When you follow-up with cardiology please discuss having an outpatient stress test to ensure you do not have coronary artery disease. Blood thinner (Eliquis) instructions: * Eliquis is a medicine prescribed to prevent blood clots * Eliquis will thin your blood and help prevent new clots * Take your medications exactly as directed * Never skip a dose. Never take a double dose. If you miss a dose, take it as soon as you remember Risk of Adverse Drug Reactions and Interactions: * Eliquis increases your risk of bleeding * The food you eat and other medications generally do not interfere with eliquis Call your Primary Care doctor if you experience any of the following: * Chest Pain * Sudden Shortness of Breath * Rapid or pounding heart beat * Fainting * Dizziness * Cough with blood or bloody sputum * Sweating more than normal * Bruises * Heavy or uncontrolled bleeding * Blood in your urine, stool or vomit * Black or tarry stools * Heavy nosebleeds Follow-up -- see separate section Return to [facility] if -- * you have rapid heart beating * you have chest pain, nausea, vomiting, sweating, arm pain or shortness of breath * you have blood in your stools, urine, etc. * any other concerns Prescriptions: New Multaq 400 mg Tablet 400 mg PO BID Qty: 60 RF: 2 Eliquis 5 mg tablet 5 mg PO BID Qty: 60 RF: 2 rosuvastatin [Crestor] 40 mg tablet 40 mg PO DAILY Qty: 30 RF: 0 Continued losartan 50 mg Tablet 50 mg PO QPM RF: 0 sertraline [Zoloft] 100 mg Tablet 100 mg PO BID RF: 0 aspirin [Aspirin Low Dose] 81 mg Tablet,Delayed Release (Dr/Ec) 81 mg PO DAILY RF: 0 levothyroxine 50 mcg Tablet 50 mcg PO DAILY RF: 0 gabapentin 300 mg Capsule 300 mg PO BID RF: 0 losartan 100 mg Tablet 100 mg PO DAILY RF: 0 metformin 750 mg Tablet Extended Release 24 Hr 750 mg PO BID RF: 0 Stand-Alone Forms: [facility]Other Patient Handouts: ED Afib Discharge Orders: Discharge Order (Routine); Ordered 01/14/19 Ordered By: Steffen Zaman Admission Data Admit Date/Time: 01/13/19 17:25 Attending Provider: Steffen Zaman Admit Provider: Jair Dudley Primary Care Provider: Aamir Bain Other Providers: Jair Dudley ; Bolivar Loza ; Daniel Griggs Service: Telemetry Other Interventions: Discharge Summary Assessment (RN) Last Done: 01/14/19 13:44 Pending Studies at Discharge: No DC Date/Time DO NOT enter until pt leaves facility: 01/14/19 14:17
== END 2019-01-14 14:17 | disposition home or self-care (01) | DRG 310 ==
LOC: ED 10:30 → 2S 10:30 → SUATTDRO 12:23 → 2S 13:41
DX: Z88.1 Allergy status to other antibiotic agents; Z79.82 Long term (current) use of aspirin; F32.9 Major depressive disorder, single episode, unspecified; R07.2 Precordial pain; I48.0 Paroxysmal atrial fibrillation; Z88.2 Allergy status to sulfonamides; Z82.3 Family history of stroke; Z79.84 Long term (current) use of oral hypoglycemic drugs; Z88.0 Allergy status to penicillin; I10 Essential (primary) hypertension; Z79.899 Other long term (current) drug therapy; F17.210 Nicotine dependence, cigarettes, uncomplicated; E11.40 Type 2 diabetes mellitus with diabetic neuropathy, unspecified; E03.9 Hypothyroidism, unspecified; Z88.6 Allergy status to analgesic agent; Z82.49 Family history of ischemic heart disease and other diseases of the circulatory system

== ENCOUNTER 2021-08-14 00:17 | Inpatient (IN) ==
[2021-08-14] MEDS ORDERED: ONDANSETRON INJ 2 MG/ML 2 ML VIAL IV STA (00:23)
[2021-08-14] MEDS ORDERED: fentaNYL citrate 100 MCG/2 ML VIAL IV PRN (00:23)
[2021-08-14] MEDS ORDERED: SODIUM CHLORIDE 0.9% 1000ML 1,000 ML IV STA (00:23)
[2021-08-14] MEDS ORDERED: CEFEPIME 2,000 MG/20 ML VIAL IV STA (00:23)
[2021-08-14] MEDS ORDERED: SODIUM CHLORIDE 0.9% 1000ML 1,000 ML IV ONE ×2 (00:23→02:00)
--- NOTE | 2021-08-14 00:45 | Emergency Department Note ---
Impression & Plan Pneumonia, Atrial fibrillation with rapid ventricular response, Abnormal EKG, Sepsis, Hypokalemia, BERE (acute kidney injury) ED Provider Note NAME: PABLITO FREDERICK AGE: 65 SEX: F : 1955 ARRIVES VIA: Ambulance INFORMANT: Patient, EMS personnel ED PROVIDER(S): Bernabe Boston DO CHIEF COMPLAINT: Chest pain HPI: The patient is a 65-year-old female who presented to the emergency department for an evaluation of chest pain. The patient states that she noticed chest pain and epigastric pain which began earlier today in the afternoon. I received a prehospital notification about this patient to review EKGs. They found that her EKGs were abnormal prior to arrival but they were unable to transmit the EKGs. The patient has a history of atrial fibrillation. She states she takes oral anticoagulation as well as blood pressure medication. She states that she has been compliant with her outpatient medication regimen. She denies having any alcohol use. She does use tobacco products. She states that she started having epigastric pain into her back and into her lower abdomen earlier today. The patient states that she has been having significant nausea and vomiting as well. She denies having any swelling in the legs. ROS: See above HPI for pertinent positives & negatives. A total of 10 systems reviewed and were otherwise negative. PAST MEDICAL HISTORY: See Below PAST SURGICAL HISTORY: See Below FAMILY HISTORY: See Below SOCIAL HISTORY: See Below HOME MEDICATIONS: See Below ALLERGIES: See Below VITALS: See Below PHYSICAL EXAMINATION: GENERAL: The patient is listless and slow to respond to questions. She appears to be in significant pain. EYES: The conjunctivae are clear. The pupils are round and reactive. EARS, NOSE, MOUTH AND THROAT: The nose is without any evidence of any deformity. Mucous membranes are dry. NECK: The neck is nontender and supple. RESPIRATORY: Shallow respirations were noted. Diminished breath sounds are noted throughout with scattered rhonchi. CARDIOVASCULAR: Tachycardic rate with regular rhythm was noted. There was no definite murmur. GASTROINTESTINAL: The abdomen is distended and diffusely tender. There is no specific guarding rigidity. MUSCULOSKELETAL/EXTREMITIES: There is no evidence of gross deformity full range of motion is noted in the hips and shoulders. SKIN: Skin is cool and mottled. There is pedal edema bilaterally. NEUROLOGIC: Patient is awake to verbal commands. Strength is symmetric but diminished. Patient is oriented to person place and situation. MEDICAL DECISION MAKING: The patient is a 65-year-old female who has a history of diabetes who presented to the emergency department for an evaluation of chest pain. The patient was noted to have tachycardia and an abnormal EKG prior to arrival. Prehospital notification was made and I evaluated the patient in room A4. The patient was treated with IV fluids in the emergency department. She appeared to have abnormal lung sounds and abnormal vital signs which led me to think the patient may have a pulmonary infection. The patient was treated with IV fluids and IV antibiotics in emergency department. She was reevaluated multiple times. She continued to have tachycardia as well as hypotension. I feel her condition was secondary to pneumonia noted on radiographic studies. A central line was placed because of ongoing hypotension and worries for sepsis. I discussed patient's condition with her daughter. Patient's mental status slowly improved. The case was discussed with the on-call [facility]ist group. Triage Nursing notes reviewed. Prior medical records reviewed Vital Signs: reviewed and remarkable for hypotension tachycardia and tachypnea. The patient was also hypoxic. Differential diagnosis: Cardiac ischemia, aortic dissection, pulmonary embolism, pneumothorax, pneumonia, pericarditis, myocarditis, esophageal rupture, GERD, cholecystitis, pancreatitis, musculoskeletal, as well as other pathologies. ER treatment provided: See below Diagnostics interpreted by me: ECG: EKG was obtained in the emergency department. My interpretation is atrial fibrillation at 146 bpm. PVCs were noted. Lateral ST depressions were noted. This was compared to a tracing from January 142018. Sinus rhythm has been replaced with atrial fibrillation with RVR. The ST segment depression is new compared to the earlier tracing A second EKG was obtained in the emergency department. My interpretation is atrial fibrillation at 152 bpm. No ectopy was noted. Persistence of the previously noted ST depression was also noted. Cardiac Monitoring: An order was placed for continuous cardiac monitoring. The monitor shows a rate of 142 bpm with atrial fibrillation with RVR. Laboratory studies: As stated above and show below. Imaging studies: See below Consultation(s): [facility]ist was notified about the patient. ED COURSE: Procedures: Femoral Central Venous Catheter Indication: Sepsis Catheter Type: Triple-lumen Location: Left femoral vein Verbal consent was obtained after the risks and benefits were explained, including but not limited to intra-abdominal injury, vessel injury, bleeding, scarring, infection, pain, and bone/joint/nerve damage. At this time, the risks of the procedure are less than the risks of NOT performing the procedure. A time out was taken and the correct patient and site identified. The patient was placed in the supine position and the skin was prepped in the standard fashion with chlorhexidine and full sterile drapes applied. The proper landmarks were identified with ultrasound, anesthetized with 1% lidocaine without epinephrine, and the needle was inserted through the skin in the standard fashion. The needle was carefully advanced into blood vessel lumen with ultrasound guidance. The guidewire was placed uneventfully. The vessel is dilated and the catheter was placed. It was secured into position. There was good blood return from all ports. The patient tolerated the procedure well and there were no complications. Critical Care: I have personally spent greater than 55 minutes of critical care time in the direct management of this patient. This includes bedside care, interpretation of diagnostic studies, and testing, discussion with consultants, patient, and family members, and other required patient management activities. This 55 minutes is in excess of all separately billable procedures. Past Med/Surg History Medical History Anxiety Depression Diabetes History of cervical cancer Hypertension Hypothyroidism Small bowel obstruction Patient had surgery for this 2018 Tobacco abuse Surgical History H/O hernia repair Patient has mesh in place H/O lumpectomy History of cholecystectomy History of hysterectomy Family History Mother Stroke Denies family history of Ovarian cancer Prostate cancer Breast cancer Lung cancer Colorectal cancer Social History Smoking Status: Current some day smoker Cigarettes Per Day: 40; Hx Alcohol Use: No Hx Substance Use: No Preferred Language: Greenlandic Communication Ability: Effective Beliefs That Will Affect Care: None Current Living Situation: Spouse and Family Feels Safe at Home: Yes Assistive Devices: None Allergies Allergies Allergy/AdvReac Type Severity Reaction Status Date / Time ciprofloxacin [From Cipro] Allergy Unknown Unverified 08/14/21 00:43 Penicillins Allergy Unknown Unverified 08/14/21 00:43 Sulfa (Sulfonamide Allergy Unknown Unverified 08/14/21 00:43 Antibiotics) PAIN MEDICATIONS Allergy Unknown Uncoded 08/14/21 00:43 Home Meds Home Medications Medication Instructions Recorded Confirmed aspirin 81 mg tablet,delayed 81 mg PO DAILY 01/12/19 08/14/21 release (Aspirin Low Dose) gabapentin 300 mg capsule 300 mg PO BID 01/12/19 08/14/21 losartan 50 mg tablet 50 mg PO QPM 01/12/19 08/14/21 sertraline 100 mg tablet (Zoloft) 100 mg PO BID 01/12/19 08/14/21 levothyroxine 75 mcg tablet 75 mcg PO DAILYBB 08/14/21 08/14/21 Previous Rx's Medication Instructions Recorded rosuvastatin 40 mg tablet (Crestor) 40 mg PO DAILY #30 tab 01/14/19 apixaban 5 mg tablet (Eliquis) 5 mg PO BID #60 tab 04/08/20 metoprolol succinate 50 mg 50 mg PO DAILY #30 tab 10/16/20 tablet,extended release 24 hr Results & Data (ED) Vital Signs Vital Signs - 24 hr 08/14/21 00:40 08/14/21 01:37 Temperature 37.3 C Temperature Source Rectal Pulse Rate 160 H Pulse Rate [Apical] 142 H Pulse Rhythm [Apical] Irregular Respiratory Rate 33 H 40 H Respiratory Effort / Characteristics SOB on Exertion Blood Pressure 98/76 L Blood Pressure [Left Arm] 87/69 L Blood Pressure Mean 83 Blood Pressure Mean [Left Arm] 75 Blood Pressure Position Lying Blood Pressure Position [Left Arm] Lying Pulse Oximetry 90 Oxygen Delivery Method Nasal Cannula Oxygen Flow Rate 4 Sepsis New/Unexplained Change in Mental Status No Sepsis Action Taken by Nursing Physician Notified Home Medications Current Medication List: was personally reviewed by me Laboratory Data Attestation: I reviewed the patient's lab results. Result diagrams: 08/14/21 00:40 08/14/21 00:40 Lab Results 08/14/21 08/14/21 08/14/21 Range/Units 00:40 00:40 00:40 WBC 21.92 H (4.8-10.8) K/uL RBC 4.60 (4.2-5.4) M/uL Hgb 12.5 (12.0-16.0) g/dL POC Hgb (12.0-16.0) g/dl Hct 39.9 (37-47) % POC Hct (37-47) % MCV 86.7 (80-100) fL MCH 27.2 (25-34) pg MCHC 31.3 L (32-36) g/dL RDW Std Deviation 53.7 H (36.4-46.3) fL RDW Coeff of [place] 16.9 H (11.5-14.5) % Plt Count 268 (130-400) K/uL MPV 10.8 H (7.4-10.4) fL Absolute Nucleated RBC 0.06 H (0-0) K/uL Nucleated RBC % (auto) 0.3 % Neutrophils % (Manual) 74.1 % Lymphocytes % (Manual) 20.7 % Monocytes % (Manual) 5.2 % Neutrophils # (Manual) 16.24 H (1.4-6.5) K/uL Total Absolute Neuts 16.24 H (1.4-6.5) K/uL Lymphocytes # (Manual) 4.54 H (1.2-3.4) K/uL Total Abs Lymphocytes 4.54 H (1.2-3.4) K/uL Monocytes # (Manual) 1.14 H (0.11-0.59) K/uL RBC Morphology Unremarkable PT 15.1 H (9.0-12.0) Seconds INR 1.4 H (0.9-1.1) APTT 31.9 H (21.0-31.0) Seconds PTT Ratio 1.2 POC Sodium (135-144) mmol/L Sodium 135 L (136-145) mmol/L POC Potassium (3.3-5.0) mmol/L Potassium 2.9 L (3.5-5.1) mmol/L POC Chloride (101-112) mmol/L Chloride 99 (98-107) mmol/L Carbon Dioxide 10 L (21-32) mmol/L POC Total CO2 (24-31) mmol/L Anion Gap 26 H (3-11) POC Anion Gap (16-25) mmol/L POC BUN (7-18) mg/dl BUN 22 (6-23) mg/dl Creatinine 2.36 H (0.6-1.2) mg/dl POC Creatinine (0.6-1.3) mg/dl Est Cr Clr Drug Dosing 20.8 ml/min Est GFR ( Amer) 23.9 ml/min Est GFR (Non-Af Amer) 20.6 ml/min BUN/Creatinine Ratio 9.3 L (10-20) Glucose 116 H (70-99(Fasting)) mg/dl POC Glucose (other) (70-99) mg/dl Lactate (0.4-2.0) mmol/L Calcium 8.4 L (8.5-10.1) mg/dl POC Ioniz Calcium Veronica (1.12-1.32) mmol/l Phosphorus (2.5-4.9) mg/dl Magnesium (1.7-2.4) mg/dl Total Bilirubin 0.5 (0.2-1.0) mg/dl AST 39 (13-39) U/L ALT 26 (7-52) U/L Alkaline Phosphatase 54 (34-104) U/L Troponin I 0.41 H* (0-0.04) ng/ml Total Protein 6.8 (6.0-8.3) gm/dl Albumin 3.4 (3.4-5.0) gm/dl Globulin 3.4 (2.5-4.0) gm/dl Albumin/Globulin Ratio 1.0 (0.9-2) Lipase 27 (11-82) U/L Urine Color Urine Appearance (Clear) Urine pH (4.5-7.5) Ur Specific [place] (1.000-1.030) Urine Protein (Negative) Urine Glucose (UA) (Negative) Urine Ketones (Negative) Urine Blood (Negative) Urine Nitrite (Negative) Urine Bilirubin (Negative) Urine Urobilinogen (Negative) Ur Leukocyte Esterase (Negative) Urine WBC (Auto) (0-5) /hpf Urine RBC (Auto) (0-4) /hpf U Hyaline Cast (Auto) (0-5) /lpf U Epithel Cells (Auto) (0-5) /lpf Urine Bacteria (Auto) (Negative) Granular Casts (0) /lpf Urine Opiates Screen (Neg) Ur Methadone, Qual (Neg) Urine Barbiturates (Neg) Ur Phencyclidine (PCP) (Neg) U Amphetamin/Meth Scrn (Neg) MDMA (Ecstasy) Screen (Neg) U Benzodiazepines Scrn (Neg) Ur Cocaine Metabolite (Neg) U Marijuana (THC) Screen (Neg) SARS-CoV-2, RNA, NAAT (NEGATIVE) 08/14/21 08/14/21 08/14/21 Range/Units 00:40 00:40 01:14 WBC (4.8-10.8) K/uL RBC (4.2-5.4) M/uL Hgb (12.0-16.0) g/dL POC Hgb 13.3 (12.0-16.0) g/dl Hct (37-47) % POC Hct 39 (37-47) % MCV (80-100) fL MCH (25-34) pg MCHC (32-36) g/dL RDW Std Deviation (36.4-46.3) fL RDW Coeff of Arminda (11.5-14.5) % Plt Count (130-400) K/uL MPV (7.4-10.4) fL Absolute Nucleated RBC (0-0) K/uL Nucleated RBC % (auto) % Neutrophils % (Manual) % Lymphocytes % (Manual) % Monocytes % (Manual) % Neutrophils # (Manual) (1.4-6.5) K/uL Total Absolute Neuts (1.4-6.5) K/uL Lymphocytes # (Manual) (1.2-3.4) K/uL Total Abs Lymphocytes (1.2-3.4) K/uL Monocytes # (Manual) (0.11-0.59) K/uL RBC Morphology PT (9.0-12.0) Seconds INR (0.9-1.1) APTT (21.0-31.0) Seconds PTT Ratio POC Sodium 137 (135-144) mmol/L Sodium (136-145) mmol/L POC Potassium 2.9 L (3.3-5.0) mmol/L Potassium (3.5-5.1) mmol/L POC Chloride 101 (101-112) mmol/L Chloride (98-107) mmol/L Carbon Dioxide (21-32) mmol/L POC Total CO2 13 L (24-31) mmol/L Anion Gap (3-11) POC Anion Gap 26.0 H (16-25) mmol/L POC BUN 21 H (7-18) mg/dl BUN (6-23) mg/dl Creatinine (0.6-1.2) mg/dl POC Creatinine 2.3 H (0.6-1.3) mg/dl Est Cr Clr Drug Dosing ml/min Est GFR ( Amer) ml/min Est GFR (Non-Af Amer) ml/min BUN/Creatinine Ratio (10-20) Glucose (70-99(Fasting)) mg/dl POC Glucose (other) 120 H (70-99) mg/dl Lactate (0.4-2.0) mmol/L Calcium (8.5-10.1) mg/dl POC Ioniz Calcium Veronica 1.11 L (1.12-1.32) mmol/l Phosphorus 6.6 H (2.5-4.9) mg/dl Magnesium 1.9 (1.7-2.4) mg/dl Total Bilirubin (0.2-1.0) mg/dl AST (13-39) U/L ALT (7-52) U/L Alkaline Phosphatase (34-104) U/L Troponin I (0-0.04) ng/ml Total Protein (6.0-8.3) gm/dl Albumin (3.4-5.0) gm/dl Globulin (2.5-4.0) gm/dl Albumin/Globulin Ratio (0.9-2) Lipase (11-82) U/L Urine Color [place] Urine Appearance Clear (Clear) Urine pH 5.0 (4.5-7.5) Ur Specific [place] 1.017 (1.000-1.030) Urine Protein 2+ H (Negative) Urine Glucose (UA) Negative (Negative) Urine Ketones Trace H (Negative) Urine Blood Negative (Negative) Urine Nitrite Negative (Negative) Urine Bilirubin Negative (Negative) Urine Urobilinogen Negative (Negative) Ur Leukocyte Esterase Negative (Negative) Urine WBC (Auto) 5-10 H (0-5) /hpf Urine RBC (Auto) 0-4 (0-4) /hpf U Hyaline Cast (Auto) 10-30 H (0-5) /lpf U Epithel Cells (Auto) 20-30 H (0-5) /lpf Urine Bacteria (Auto) 1+ H (Negative) Granular Casts 1-5 H (0) /lpf Urine Opiates Screen (Neg) Ur Methadone, Qual (Neg) Urine Barbiturates (Neg) Ur Phencyclidine (PCP) (Neg) U Amphetamin/Meth Scrn (Neg) MDMA (Ecstasy) Screen (Neg) U Benzodiazepines Scrn (Neg) Ur Cocaine Metabolite (Neg) U Marijuana (THC) Screen (Neg) SARS-CoV-2, RNA, NAAT (NEGATIVE) 08/14/21 08/14/21 08/14/21 Range/Units 01:14 01:39 02:26 WBC (4.8-10.8) K/uL RBC (4.2-5.4) M/uL Hgb (12.0-16.0) g/dL POC Hgb (12.0-16.0) g/dl Hct (37-47) % POC Hct (37-47) % MCV (80-100) fL MCH (25-34) pg MCHC (32-36) g/dL RDW Std Deviation (36.4-46.3) fL RDW Coeff of Arminda (11.5-14.5) % Plt Count (130-400) K/uL MPV (7.4-10.4) fL Absolute Nucleated RBC (0-0) K/uL Nucleated RBC % (auto) % Neutrophils % (Manual) % Lymphocytes % (Manual) % Monocytes % (Manual) % Neutrophils # (Manual) (1.4-6.5) K/uL Total Absolute Neuts (1.4-6.5) K/uL Lymphocytes # (Manual) (1.2-3.4) K/uL Total Abs Lymphocytes (1.2-3.4) K/uL Monocytes # (Manual) (0.11-0.59) K/uL RBC Morphology PT (9.0-12.0) Seconds INR (0.9-1.1) APTT (21.0-31.0) Seconds PTT Ratio POC Sodium (135-144) mmol/L Sodium (136-145) mmol/L POC Potassium (3.3-5.0) mmol/L Potassium (3.5-5.1) mmol/L POC Chloride (101-112) mmol/L Chloride (98-107) mmol/L Carbon Dioxide (21-32) mmol/L POC Total CO2 (24-31) mmol/L Anion Gap (3-11) POC Anion Gap (16-25) mmol/L POC BUN (7-18) mg/dl BUN (6-23) mg/dl Creatinine (0.6-1.2) mg/dl POC Creatinine (0.6-1.3) mg/dl Est Cr Clr Drug Dosing ml/min Est GFR ( Amer) ml/min Est GFR (Non-Af Amer) ml/min BUN/Creatinine Ratio (10-20) Glucose (70-99(Fasting)) mg/dl POC Glucose (other) (70-99) mg/dl Lactate 11.3 H* (0.4-2.0) mmol/L Calcium (8.5-10.1) mg/dl POC Ioniz Calcium Veronica (1.12-1.32) mmol/l Phosphorus (2.5-4.9) mg/dl Magnesium (1.7-2.4) mg/dl Total Bilirubin (0.2-1.0) mg/dl AST (13-39) U/L ALT (7-52) U/L Alkaline Phosphatase (34-104) U/L Troponin I (0-0.04) ng/ml Total Protein (6.0-8.3) gm/dl Albumin (3.4-5.0) gm/dl Globulin (2.5-4.0) gm/dl Albumin/Globulin Ratio (0.9-2) Lipase (11-82) U/L Urine Color Urine Appearance (Clear) Urine pH (4.5-7.5) Ur Specific [place] (1.000-1.030) Urine Protein (Negative) Urine Glucose (UA) (Negative) Urine Ketones (Negative) Urine Blood (Negative) Urine Nitrite (Negative) Urine Bilirubin (Negative) Urine Urobilinogen (Negative) Ur Leukocyte Esterase (Negative) Urine WBC (Auto) (0-5) /hpf Urine RBC (Auto) (0-4) /hpf U Hyaline Cast (Auto) (0-5) /lpf U Epithel Cells (Auto) (0-5) /lpf Urine Bacteria (Auto) (Negative) Granular Casts (0) /lpf Urine Opiates Screen Neg (Neg) Ur Methadone, Qual Neg (Neg) Urine Barbiturates Neg (Neg) Ur Phencyclidine (PCP) Neg (Neg) U Amphetamin/Meth Scrn Neg (Neg) MDMA (Ecstasy) Screen Neg (Neg) U Benzodiazepines Scrn Neg (Neg) Ur Cocaine Metabolite Neg (Neg) U Marijuana (THC) Screen Neg (Neg) SARS-CoV-2, RNA, NAAT NEGATIVE (NEGATIVE) Administered Medications Discontinued Medications Cefepime HCl (Maxipime) 2,000 mg in 20 mls @ 5 mls/min IV NOW STA; Protocol Stop: 08/14/21 00:26 Last Admin: 08/14/21 01:42 Dose: 5 mls/min Documented by: [id number] Sodium Chloride (Nss 1000ml) 1,000 mls @ 999 mls/hr IV .Q1H1M STA Stop: 08/14/21 01:23 Last Infusion: 08/14/21 02:44 Dose: 0 mls/hr Documented by: [id number] Admin: 08/14/21 00:44 Dose: 999 mls/hr Documented by: [id number] Sodium Chloride (Nss 1000ml) 1,000 mls @ 999 mls/hr IV .Q1H1M ONE Stop: 08/14/21 01:23 Last Infusion: 08/14/21 01:59 Dose: 0 mls/hr Documented by: [id number] Admin: 08/14/21 00:45 Dose: 999 mls/hr Documented by: [id number] Potassium Acetate (Potassium Acetate/Nss) 10 meq in 105 mls @ 105 mls/hr IV Q1H ONE Stop: 08/14/21 02:22 Last Admin: 08/14/21 02:07 Dose: 105 mls/hr Documented by: [id number] Parenteral Electrolytes (Plasma-Lyte A) 1,000 mls @ 999 mls/hr IV .Q1H1M [facility] Last Admin: 08/14/21 02:50 Dose: Not Given Documented by: [id number] Sodium Chloride (Nss 1000ml) 1,000 mls @ 999 mls/hr IV .Q1H1M ONE Stop: 08/14/21 03:00 Last Admin: 08/14/21 02:50 Dose: Not Given Documented by: [id number] Ioversol (Optiray 320 125ml) 125 ml IV ONCE ONE Stop: 08/14/21 01:15 Last Admin: 08/14/21 01:15 Dose: 119 ml Documented by: [id number] Imaging Data Radiologist's Impression: Patient: PABLITO FREDERICK (Female) : 51 Status: ER Date: 08/14/21 01:22 Room #: History: PAIN IN CHEST, CONFUSION, SOB, R/O PE Slices: 782 Priors: Tech: [email or web address] Antione @ [phone] Exams: CTA CHEST Contrast: IV Amt: 119 ML OPTIRAY 320 Accession Numbers: [id number] Referring Physician: BERNABE BOSTON Preliminary Findings Only See Final Report For Complete Findings CTA CHEST: Airspace consolidation involving the right lower lobe. The primary consideration is pneumonia. No pleural effusion or pneumothorax. No evidence for pulmonary embolism. Atherosclerotic changes of the aorta without dissection or aneurysm. The cardiac chambers are unremarkable. No pericardial effusion. Nonspecific right hilar lymph node is presumed reactive. No other significant mediastinal or hilar lymphadenopathy. Radiologist: Yonny Gann MD Study ready at 01:24 and initial results transmitted at 01:39 Patient: PABLITO FREDERICK (Female) : 51 Status: ER Date: 08/14/21 01:22 Room #: History: AMS Slices: 95 Priors: Tech: Antione Arriaza @ [phone] Exams: CT HEAD Contrast: Accession Numbers: [id number] Referring Physician: BERNABE BOSTON Preliminary Findings Only See Final Report For Complete Findings CT HEAD: Motion artifact involving the skull base and inferior posterior fossa despite repeated imaging attempts. No definite intracranial hemorrhage. No significant mass effect or midline shift. No evidence for cortical infarct. The paranasal sinuses and mastoid air cells are thought to be patent. Radiologist: Yonny Gann MD Study ready at 01:22 and initial results transmitted at 01:37 Patient: PABLITO FREDERICK (Female) : 51 Status: ER Date: 08/14/21 01:24 Room #: History: PAIN IN ABD, MOVING ALL OVER Slices: 717 Priors: Tech: Antione Arriaza @ [phone] Exams: CT ABDOMEN & PELVIS With Contrast Contrast: IV Amt: 119 ML OPTIRAY 320 Accession Numbers: [id number] Referring Physician: BERNABE BOSTON Preliminary Findings Only See Final Report For Complete Findings CT ABDOMEN & PELVIS With Contrast: No bowel obstruction. No definite asymmetric bowel mucosal abnormality. No free intraperitoneal fluid or pneumoperitoneum. Normal caliber appendix. The liver is heterogeneous in appearance with variable fat deposition. Focal asymmetric hypoattenuating area along the posterior lateral aspect of the right lobe of the liver is presumed more prominent area of fat deposition. The appearance is not consistent with a simple cyst. A hemangioma is considered less likely. Cholecystectomy. The pancreas, spleen, adrenal glands and kidneys demonstrate no definite significant abnormality, accounting for limitations with respiratory artifact. Incidental somewhat dumbbell-shaped cortical cyst involving the posterior aspect of the left kidney, measuring 3.1 cm in long axis. No complex features. Episodic changes of the normal caliber aorta without dissection or acute periaortic abnormality. The bladder is unremarkable without bladder wall thickening or bladder stones. No acute osseous abnormality. Incidental bilateral L5 spondylolysis without significant spondylolisthesis. No significant overlying acute soft tissue abnormality. Incidental asymmetric atrophy of the left rectus muscle. No hernia. Radiologist: Yonny Gann MD Study ready at 01:27 and initial results transmitted at 01:42 Discharge Plan Visit Data Chief Complaint: Abdominal Pain Stated Complaint: CHEST/ABDOMINAL PAIN ED Provider: Ioana Parker Discharge Problem: Pneumonia, Atrial fibrillation with rapid ventricular response, Abnormal EKG, Sepsis, Hypokalemia, BERE (acute kidney injury) Patient Disposition: Being Evaluated by Hospitalist Forms Stand Alone Forms: [facility] Prescriptions Prescriptions: No Action Eliquis 5 mg tablet 5 mg PO BID Qty: 60 RF: 5 metoprolol succinate 50 mg tablet extended release 24 hr 50 mg PO DAILY Qty: 30 RF: 11 losartan 50 mg Tablet 50 mg PO QPM RF: 0 sertraline [Zoloft] 100 mg Tablet 100 mg PO BID RF: 0 aspirin [Aspirin Low Dose] 81 mg Tablet,Delayed Release (Dr/Ec) 81 mg PO DAILY RF: 0 gabapentin 300 mg Capsule 300 mg PO BID RF: 0 rosuvastatin [Crestor] 40 mg tablet 40 mg PO DAILY Qty: 30 RF: 0 levothyroxine 75 mcg tablet 75 mcg PO DAILYBB RF: 0 Referrals Referrals: Aamir Bain MD [Primary Care Provider] - Discharge Problem: Pneumonia Qualifiers: Pneumonia type: due to unspecified organism Laterality: right Lung location: unspecified part of lung Qualified Code(s): J18.9 - Pneumonia, unspecified organism Sepsis Qualifiers: Sepsis type: sepsis due to unspecified organism Sepsis acute organ dysfunction status: unspecified Qualified Code(s): A41.9 - Sepsis, unspecified organism
[2021-08-14 00:49] LABS: Hematocrit (blood only) 39.9 % (37-47); Hemoglobin 12.5 g/dL (12.0-16.0); Mean Corpuscular Hemoglobin 27.2 pg (25-34); Mean Corpuscular Hgb Conc 31.3 g/dL (32-36); Mean Corpuscular Volume 86.7 fL (80-100); Mean Platelet Volume 10.8 fL (7.4-10.4); Nucleated RBC # (auto) 0.06 K/uL (0-0); Nucleated RBC % (auto) 0.3 %; Platelet Count 268 K/uL (130-400); RDW Coefficient of Variation 16.9 % (11.5-14.5); RDW Standard Deviation 53.7 fL (36.4-46.3); White Blood Count 21.92 K/uL (4.8-10.8)
[2021-08-14 00:54] LABS: iSTAT Creatinine 2.3 mg/dl (0.6-1.3); iSTAT Hemoglobin 13.3 g/dl (12.0-16.0); iSTAT Ionized Calcium 1.11 mmol/l (1.12-1.32); iSTAT Potassium 2.9 mmol/L (3.3-5.0)
[2021-08-14 01:09] LABS: INR 1.4 (0.9-1.1); Partial Thromboplastin Ratio 1.2; Partial Thromboplastin Time 31.9 Seconds (21.0-31.0); Prothrombin Time 15.1 Seconds (9.0-12.0)
[2021-08-14] MEDS ORDERED: OPTIRAY 320 125ml IV ONE (01:14)
[2021-08-14 01:18] LABS: ALC (manual) 4.54 K/uL (1.2-3.4); ANC (manual) 16.24 K/uL (1.4-6.5); Lymphocytes # (manual) 4.54 K/uL (1.2-3.4); Lymphocytes % (manual) 20.7 %; Monocytes # (manual) 1.14 K/uL (0.11-0.59); Monocytes % (manual) 5.2 %; Neutrophils # (manual) 16.24 K/uL (1.4-6.5); Neutrophils % (manual) 74.1 %; RBC Morphology Unremarkable
[2021-08-14] MEDS ORDERED: POTASSIUM ACETATE/NSS 10 MEQ/105 ML BAG IV ONE ×2 (01:23→01:56)
[2021-08-14 01:27] LABS: Troponin I 0.41 ng/ml (0-0.04)
[2021-08-14 01:30] LABS: Albumin Level 3.4 gm/dl (3.4-5.0); BUN Creatinine Ratio 9.3 (10-20); Bilirubin,Total 0.5 mg/dl (0.2-1.0); Calcium 8.4 mg/dl (8.5-10.1); Creatinine Clr Calc Pharmacy 20.8 ml/min; Est GFR (African American) 23.9 ml/min; Est GFR (Non-African American) 20.6 ml/min; Globulin 3.4 gm/dl (2.5-4.0); Potassium 2.9 mmol/L (3.5-5.1); Total Protein 6.8 gm/dl (6.0-8.3)
[2021-08-14 01:58] LABS: Appearance Urine Clear (Clear); Bilirubin Urine Negative (Negative); Blood Urine Negative (Negative); Color Urine Orange; Epithelial Cell Urine Auto 20-30 /lpf (0-5); Glucose Urine UA Negative (Negative); Ketones Urine Trace (Negative); Leukocyte Esterase Urine Negative (Negative); Nitrite Urine Negative (Negative); Protein Urine 2+ (Negative); RBC Urine Automated 0-4 /hpf (0-4); Specific Gravity Urine 1.017 (1.000-1.030); Urobilinogen Urine Negative (Negative)
[2021-08-14] MEDS ORDERED: NORMOSOL-R 1,000 ML IV SCH (01:58)
[2021-08-14 02:14] LABS: Magnesium 1.9 mg/dl (1.7-2.4); Phosphorus 6.6 mg/dl (2.5-4.9)
[2021-08-14 02:17] LABS: Amphetamines+Metham, Urine Neg (Neg); Barbiturates, Urine Neg (Neg); Benzodiazepine, Urine Neg (Neg); Cocaine, Urine Neg (Neg); MDMA (Ecstacy), Urine Neg (Neg); Methadone, Urine Neg (Neg); Opiate, Urine Neg (Neg); Phencyclidine, Urine Neg (Neg)
[2021-08-14 02:18] LABS: Bacteria Urine Automated 1+ (Negative)
[2021-08-14] MEDS ORDERED: STAT IV STA (02:30)
[2021-08-14] MEDS ORDERED: RAPID SEQUENCE INDUCTION BAG ONE (03:05)
[2021-08-14] MEDS ORDERED: SODIUM BICARB 8.4% INJ 50 MEQ/50 ML SYR IV ONE (03:06)
--- NOTE | 2021-08-14 03:07 | History & Physical Report ---
Date of Service August 14, 2021 Assessment & Plan (1) Acute respiratory failure with hypoxia and hypercapnia: Plan: Maite Mcclellan is a 65yo female with PMHx significant for a-fib (on Eliquis and Toprol), h/o cervical cancer, T2DM (A1c 5.8 in 12/2019), Hypothyroidism, and HLD who presented to [facility] ED on 08/14 for fatigue, weakness, malaise, productive cough, nausea, NB/NB vomiting several times and inability to tolerate PO for 1 day. Found to be septic with severe lactic acidosis and resultant acute respiratory failure, requiring intubation in the ED. Acute Hypoxic Hypercapnic Respiratory Failure; Sepsis; RLL Pneumonia Respiratory failure likely primarily due to severe lactic acidosis in setting of sepsis due to RLL PNA. Patient decompensated quickly which was likely due to a- fib with RVR in addition to possible aspiration. Intubated/sedated in ED. Admit to ICU. - lactate 11.3, procalcitonin 127.86, imaging with RLL PNA - received Cefepime x1 in the ED, will continue with Cefepime (renal dosing) - MRSA nares pending - would add Linezolid if positive (given BERE) - s/p 2L NSS boluses in ED, will continue with Bicarb as specified below - blood cx pending - trend lactate, trend CBC in AM Lactic Acidosis Lactate 11.3, HCO3 10, AG 26. Due to sepsis 2/2 PNA. - ordered NaHCO3 bolus and drip - trend CMP in AM BERE Cr 2.36, normal baseline. 2/2 to sepsis. - s/p 2L NSS bolus, continue with bicarb as stated above - will defer further IVFs to ICU Electrolyte Abnormalities K 2.9, Phos 6.6, iCa 1.11. Likely all 2/2 sepsis with severe lactic acidosis. - continue to trend - suspect improvement with treatment of sepsis/PNA Elevated Troponin Troponin 0.41 but no chest pain and EKG without ST/T wave changes. Suspect demand ischemia due to sepsis. - ordered serial Troponin Q6H x2 Atrial Fibrillation with RVR Likely 2/2 sepsis/PNA. Recent TTE in 03/2021 with EF 60-65%. - ordered TTE - started Heparin gtt without bolus, as patient has CHADS-VASc score of 4 and will not be able to take Eliquis - hold home Toprol XL Chronic Medical Conditions HTN/HLD: hold home Losartan, Rosuvastatin and Aspirin Depression/anxiety: hold home Sertraline Diabetic Neuropathy: hold home Gabapentin Hypothyroidism: hold home Synthroid FEN/GI: NPO, Bicarb gtt DVT Prophylaxis: Heparin gtt Code Status: DNR/DNI (but okay with intubation outside of cardiac arrest) Disposition: ICU (2) Pneumonia: (3) Atrial fibrillation with rapid ventricular response: (4) Sepsis: (5) Hypokalemia: (6) BERE (acute kidney injury): (7) Hypothyroidism: (8) Hypertension: (9) Diabetes: (10) Elevated troponin: (11) Hypocalcemia: (12) Lactic acidosis: (13) Anxiety: History of Present Illness Chief Complaint: abdominal pain Primary Care Provider: Aamir Bain MD Maite Mcclellan is a 65yo female with PMHx significant for a-fib (on Eliquis and Toprol), T2DM (A1c 5.8 in 12/2019), Hypothyroidism, and HLD who presented to [facility] ED on 08/14 for fatigue, weakness, malaise, productive cough, nausea, NB/NB vomiting several times and inability to tolerate PO for 1 day. Patient reports that she was in her usual state of health until 08/13, when she woke up with above symptoms. Denies fever/chills or body aches. Denies dysuria or urinary frequency/urgency. Denies diarrhea. Denies rash. Denies recent sick contacts. She does report h/o PNA x2 over the last 1-2 years that required hospitalization but not here at [facility]. Denies recent changes to medications. Does have a 50 pack year smoking history. Denies alcohol use or other drug use. In the ED the patient was tachycardic to 160bpm (a-fib RVR), tachypneic to 33, hypotensive to 87/69 and hypoxic to 70s. She was given 2L NSS boluses and BP went up to 120s/90s, but she became progressively more hypoxic and required up to 15L oxymask but remained hypoxic in low 80s. Ultimately the patient was intubated in the ED. Laboratory evaluation was significant for WBC 21.92 with neutrophilic predominance and left shift. Lactate 11.3, Procalcitonin 127.86. Na 135, K 2.9, Phos 6.6, Mg 1.9, HCO3 10, AG 26, Cr 2.36 (baseline 1), Troponin 0.41. UA without nitrite/LE/WBC/bacteria. COVID negative. CXR and CTA chest showing airspace consolidation in RLL. No pleural effusion or PE. CT head and CT A/P without acute abnormalities. In addition to NSS boluses, patient was given Cefepime x1 and potassium acetate x2 before being intubated. Allergies Allergy/AdvReac Type Severity Reaction Status Date / Time ciprofloxacin [From Cipro] Allergy Unknown Unverified 08/14/21 00:43 Penicillins Allergy Unknown Unverified 08/14/21 00:43 Sulfa (Sulfonamide Allergy Unknown Unverified 08/14/21 00:43 Antibiotics) PAIN MEDICATIONS Allergy Unknown Uncoded 08/14/21 00:43 Home Medications Medication Instructions Recorded Confirmed Type aspirin 81 mg tablet,delayed 81 mg PO DAILY 01/12/19 08/14/21 History release (Aspirin Low Dose) gabapentin 300 mg capsule 300 mg PO BID 01/12/19 08/14/21 History losartan 50 mg tablet 50 mg PO QPM 01/12/19 08/14/21 History sertraline 100 mg tablet (Zoloft) 100 mg PO BID 01/12/19 08/14/21 History rosuvastatin 40 mg tablet (Crestor) 40 mg PO DAILY #30 tab 01/14/19 08/14/21 Rx apixaban 5 mg tablet (Eliquis) 5 mg PO BID #60 tab 04/08/20 08/14/21 Rx metoprolol succinate 50 mg 50 mg PO DAILY #30 tab 10/16/20 08/14/21 Rx tablet,extended release 24 hr levothyroxine 75 mcg tablet 75 mcg PO DAILYBB 08/14/21 08/14/21 History Past Med/Surg History Medical History (Updated 08/14/21 @ 04:29 by FIDELINA Bhatti) Anxiety Depression Diabetes History of cervical cancer Hypertension Hypothyroidism Small bowel obstruction Patient had surgery for this 2018 Tobacco abuse Surgical History H/O hernia repair Patient has mesh in place H/O lumpectomy History of cholecystectomy History of hysterectomy Family History Mother Stroke Denies family history of Ovarian cancer Prostate cancer Breast cancer Lung cancer Colorectal cancer Social History Smoking Status: Current every day smoker Cigarettes Per Day: 40; Do You Dip or Chew Tobacco: No; Preferred Language: Swedish Communication Ability: Effective Communication Ability Comment: Patient intubated and sedated at time of admission Technical Sales Advisor Required: No Beliefs That Will Affect Care: None Current Living Situation: Other Current Living Situation Comment: Unknown; patient intubated and sedated at time of admission Feels Safe at Home: Yes Assistive Devices: Oxygen - Continuous Review of Systems Review of Systems: All systems reviewed & are unremarkable except as noted in HPI & below Physical Exam Physical Exam: General: Initially A+Ox3 but in moderate respiratory distress on oxymask, when first evaluated. Skin became progressively more waldron and patient became disoriented ~30 minutes after initial evaluation. HEENT: Atraumatic, normocephalic. Oxymask in place. Pulm: CTAB A&P. -wheezes, -rales, -rhonchi. Symmetrical chest rise. No increase work of breathing. No respiratory distress. Cardiac: RRR, -mrg. Radial pulses intact and symmetrical. No JVD and negative hepatojugular reflex. No LE edema. Abdominal: soft, non-tender, non-distended, BS x 4 Skin: warm, dry, no rash Results & Data Results & Data ([facility]) Vital Signs (Past 12 Hours) Vital Signs Temp Pulse Pulse Resp BP BP Pulse Ox 08/14/21 01:37 37.3 C 142 H 40 H 87/69 L 08/14/21 00:40 160 H 33 H 98/76 L 90 Code Status & VTE Plan Code Status DNR/DNI (but okay with intubation out of the context of cardiac arrest) VTE Prophylaxis Plan VTE Prophylaxis will be ordered: Yes Critical Care Time 60 minutes Supervising Physician Co-Signing Physician Notes Attending addendum: I have physically seen this patient, have supervised the medical residents activities, and agree with the H&P unless as otherwise noted. Assessment and Plan: Acute respiratory failure with hypoxia and hypercapnia/right lower lobe pneumonia/sepsis/lactic acidosis- Admit to the ICU Serial laboratories including lactate, procalcitonin, CBC with differential, chemistry profile and ABG Place on Zyvox and cefepime IV Status post 2 L normal saline in ED Placed on bicarb drip 50 mEq at 100 mils per hour for pH in the 7.1 range ventilator management per ICU consults Acute kidney injury- Creatinine 2.36 upon admission Repeat laboratories in a.m. after fluid rehydration Elevated troponin/hypertension- Troponin 0 0.41 upon admission Follow serial troponins likely type II supply demand mismatch Remaining orders and notations as noted Resident Activity Tracking Resident Involvement: Resident Care Provided Care Provided: Adult [facility] Medicine (1) Diabetes Diabetes mellitus complication status: without complication Diabetes mellitus usp insulin use: without lobsterman use Diabetes mellitus type: type 2 Qualified Code(s): E11.9 - Type 2 diabetes mellitus without complications (2) Hypothyroidism Hypothyroidism type: acquired Qualified Code(s): E03.9 - Hypothyroidism, unspecified (3) Sepsis Sepsis acute organ dysfunction status: unspecified Sepsis type: sepsis due to unspecified organism Qualified Code(s): A41.9 - Sepsis, unspecified organism (4) Hypertension Hypertension type: essential hypertension Qualified Code(s): I10 - Essential (primary) hypertension (5) Pneumonia Laterality: right Lung location: unspecified part of lung Pneumonia type: due to unspecified organism Qualified Code(s): J18.9 - Pneumonia, unspecified organism
[2021-08-14] MEDS ORDERED: SODIUM BICARB 8.4% INJ 50 MEQ/50 ML SYR IV STA (03:16)
[2021-08-14] MEDS ORDERED: MIDAZOLAM HCL 125MG/250ML D5W ONE (03:21)
[2021-08-14] MEDS ORDERED: fentaNYL citrate 2,500 MCG/250 ML BAG IV ONE (03:21)
[2021-08-14] MEDS ORDERED: NOREPINEPHRINE/D5W 8 MG/508 ML IV ONE (03:28)
[2021-08-14] MEDS: SODIUM BICARBONATE 8.4% 150 MEQ in DEXTROSE 5% 1,000 ML IV SCH ×3 (03:35→16:15)
[2021-08-14] MEDS: fentaNYL citrate 2,500 MCG/250 ML BAG IV SCH ×2 (03:55→20:31)
[2021-08-14] MEDS: NOREPINEPHRINE/D5W 8 MG/508 ML BAG IV SCH ×3 (03:55→20:32)
[2021-08-14] MEDS: MIDAZOLAM HCL 125 MG/250 ML BAG IV SCH ×2 (03:55→21:02)
[2021-08-14] MEDS ORDERED: ICU PROTOCOL FOR HYPERGLYCEMIA PRN (04:07)
[2021-08-14] MEDS ORDERED: Heparin IV Adult Wt-Based Standard *NO* Bolus Protocol IV SCH (04:07)
[2021-08-14] MEDS ORDERED: MIDAZOLAM BOLUS FROM BAG IV PRN (04:22)
[2021-08-14] MEDS ORDERED: STAT IV Infusion **Titration per Protocol STA ×5 (04:22→08:10)
--- NOTE | 2021-08-14 04:28 | Procedure Note ---
Procedure Note Date of Service August 14, 2021 Note ARTERIAL LINE PROCEDURE NOTE: Procedure: Arterial Line Placement Attending: Dr. Ortez Provider: FIDELINA Condon Indication: Monitoring on Pressors Anesthesia:Lidocaine 1% Line placed emergently in the setting of septic shock requiring vasopressor support. A time-out was completed verifying correct patient, procedure, site, positioning, and implant(s) or special equipment if applicable. Allens test was performed to ensure adequate perfusion. Patients left wrist was prepped and draped in the usual sterile fashion. Ultrasound guidance was used to aid needle placement. A 20g Arrow arterial line was introduced into the left radial artery. Catheter was threaded, and the needle was removed with appropriate blood return. Good waveform was observed. The patient tolerated the procedure well. Confirmation of placement with ultrasound. Blood Loss: Minimal Complications: None Procedural Ultrasound Guidance: Procedure Date: 08/14/2021 Indication: Arterial line insertion Attending: Dr. Ortez Provider: FIDELINA Condon Artery Identified: YES Line confirmed in Artery with ultrasound: Yes Complications: NONE Patient tolerated procedure: WELL Coding CPT Codes Tubes, Drains, and Vasc Access - Tubes, Drains, and Vasc Access: [id number] Place Catheter In Artery ([id number]) Tubes, Drains, and Vasc Access - Tubes, Drains, and Vasc Access: [id number] Ultrasound Guidance For Vascular ([id number]) [facility] [place] Procedure Codes (Charges) Tubes, Drains, and Vasc Access Procedure 1: Tubes, Drains, and Vasc Access: [id number] Place Catheter In Artery Procedure 2: Tubes, Drains, and Vasc Access: [id number] Ultrasound Guidance For Vascular
--- NOTE | 2021-08-14 04:37 | Critical Care Consultation ---
Date of Consultation August 14, 2021 Assessment & Plan (1) Septic shock: Reason Critically Ill: 65-year-old female presents to the ICU with acute hypoxic respiratory failure requiring mechanical ventilation and septic shock requiring vasopressor support. Neuro - Sedation: Fentanyl/Versed Cardiac - Shockpatient with hypotension requiring vasopressor support. She did receive 2 L crystalloid in the emergency department appears to have developed pulmonary edema. -Most likely septic in etiology from pulmonary source. See treatment below under ID. -Last echo with EF 60 to 65%. Repeat echo pending -Patient did have troponin 0.4 which is most likely demand ischemia given hypoxia and A. fib RVR. She is anticoagulated on Eliquis and will transition to heparin drip. Will trend troponin for now -Cortisol pending -Norepinephrine drip, titrate to maintain maps greater than 65 -Careful with IV fluid resuscitation given patient's pulmonary status -Hold antihypertensives -A-line for continuous hemodynamic monitoring, continuous telemetry Respiratory - Acute hypoxic respiratory failurelikely multifactorial as patient was in A. fib RVR and did appear to have developed rapid pulmonary edema, also in the setting of pneumonia/aspiration. She did vomit during intubation. -See ID for management of pneumonia -Patient was emergently intubated in ED for rapidly developing hypoxia. ABG with severe metabolic acidosis and hypoxia. Current vent settings: 30/350/10/ 100%. Wean vent as tolerated -CTA chest negative for PE. Right lower lobe airspace infiltrate. -We will hold on diuresis for now given shock and poor renal function -Nebs as needed -Continuous end-tidal CO2 and pulse ox monitoring GI - N.p.o. CT abdomen pelvis negative for acute process RENAL/LYTES - AKIcreatinine 2.36 with baseline of 1.01. Suspect ATN in the setting of sepsis/hypoxia -BUN 21 and metabolic acidosis more likely due to lactic acidosis. Will trend lactic acid and suspect to improve with correction of hypertension/hypoxia -Continue bicarb drip for now, monitor routine ABGs -Monitor routine BMPs. Replete electrolytes as indicated -Maintain maps greater than 65 -Avoid nephrotoxins and renally adjust medications -Careful with IV fluid resuscitation given the patient's pulmonary status Foleystrict I's and ENDO - ICU hyperglycemic protocol Hypothyroid continue Synthroid HEME - H&H stable, monitor routine CBCs ID - Sepsislikely pulmonary source given right lower lobe infiltrate. Possible aspiration during intubation as patient did vomit. UA concerning for UTI -Procalcitonin elevated at 139. Lactic acid 11. WBC 21. Currently afebrile -Blood cultures urine culture pending -COVID-19 negative -Nasal MRSA pending -Continue cefepime for now LINES/IV ACCESS - Right femoral CVL, left radial A-line, peripheral IVs, OG tube, Nassar, ET tube DVT PROPHYLAXIS - SCDs, heparin drip I have personally spent 95 minutes of critical care time in the direct management of this patient. This is a life/limb threatening event. This includes time spent evaluating patient, direct bedside care, chart review, placing orders, interpretation of diagnostic studies, discussion with consultants, patient, and family members, as well as other required patient management activities. This time is exclusive of all separately billable procedures, and teaching time and separate from and in addition to any other critical care service time. Thank you for allowing us to participate in the care of this patient. Please refer to my attending physician's documentation for any further recommendations. (2) Anxiety: (3) Lactic acidosis: (4) Hypocalcemia: (5) Elevated troponin: (6) Acute respiratory failure with hypoxia and hypercapnia: (7) Pneumonia: (8) Atrial fibrillation with rapid ventricular response: (9) Sepsis: (10) BERE (acute kidney injury): (11) Anticoagulant long-term use: (12) Hypothyroidism: (13) Hypertension: Supervising Physician Co-Signing Physician Notes Patient seen and examined separately from the overnight ALLAN. Agree with assessment and plan aside for any additions/exceptions noted: Please see my critical care communication note. History of Present Illness Attending Physician: Kareem Ratliff MD History of Present Illness Ms. Cortes is a 65-year-old female with past medical history of A. fib (on Eliquis), hypothyroidism, hyperlipidemia, hypertension, and smoking who presented to the emergency department today with multiple complaints including weakness, malaise, productive cough, nausea and vomiting. She was noted to be tachycardic in A. fib RVR with rate of 160, hypoxic, tachypneic, and hypotensive. She was given 2 L crystalloid bolus which did improve blood pressure temporarily but she became progressively hypoxic and ultimately required intubation. She underwent CTA chest which was negative for PE but did show right lower lobe infiltrate, along with CT head and CT abdomen and pelvis which were unremarkable for acute process. She had significant leukocytosis, elevated lactic acidosis, elevated pro-Alphonso indicating sepsis. She is also noted to have an BERE. She had a mildly elevated troponin of 0.41 which is likely demand ischemia. UA positive for bacteria. Blood cultures and urine culture co llected and she received cefepime. Following intubation patient was requiring vasopressor support. Central line had been previously placed in the ED. On transfer to the ICU arterial line was placed as well. She was noted to have severe acidosis on blood gas and received 2 A of bicarb followed by bicarb drip. According to conversation with primary team, patient is DNR in the event of cardiac arrest. Family was agreeable to intubation and other forms of medical management. Patient is now transferred to ICU for further management at this time. Allergies Allergy/AdvReac Type Severity Reaction Status Date / Time ciprofloxacin [From Cipro] Allergy Unknown Unverified 08/14/21 00:43 Penicillins Allergy Unknown Unverified 08/14/21 00:43 Sulfa (Sulfonamide Allergy Unknown Unverified 08/14/21 00:43 Antibiotics) PAIN MEDICATIONS Allergy Unknown Uncoded 08/14/21 00:43 Home Medications Medication Instructions Recorded Confirmed Type aspirin 81 mg tablet,delayed 81 mg PO DAILY 01/12/19 08/14/21 History release (Aspirin Low Dose) gabapentin 300 mg capsule 300 mg PO BID 01/12/19 08/14/21 History losartan 50 mg tablet 50 mg PO QPM 01/12/19 08/14/21 History sertraline 100 mg tablet (Zoloft) 100 mg PO BID 01/12/19 08/14/21 History rosuvastatin 40 mg tablet (Crestor) 40 mg PO DAILY #30 tab 01/14/19 08/14/21 Rx apixaban 5 mg tablet (Eliquis) 5 mg PO BID #60 tab 04/08/20 08/14/21 Rx metoprolol succinate 50 mg 50 mg PO DAILY #30 tab 10/16/20 08/14/21 Rx tablet,extended release 24 hr levothyroxine 75 mcg tablet 75 mcg PO DAILYBB 08/14/21 08/14/21 History Patient History Medical History (Updated 08/14/21 @ 04:29 by FIDELINA Bhatti) Anxiety Depression Diabetes History of cervical cancer Hypertension Hypothyroidism Small bowel obstruction Patient had surgery for this 2018 Tobacco abuse Surgical History H/O hernia repair Patient has mesh in place H/O lumpectomy History of cholecystectomy History of hysterectomy Family History Mother Stroke Denies family history of Ovarian cancer Prostate cancer Breast cancer Lung cancer Colorectal cancer Social History Smoking Status: Current every day smoker Cigarettes Per Day: 40; Do You Dip or Chew Tobacco: No; Preferred Language: Frisian Communication Ability: Effective Communication Ability Comment: Patient intubated and sedated at time of admission Speech Therapy Assistant Required: No Beliefs That Will Affect Care: None Current Living Situation: Other Current Living Situation Comment: Unknown; patient intubated and sedated at time of admission Feels Safe at Home: Yes Assistive Devices: None Review of Systems Review of Systems: Unobtainable due to endotracheal tube and Unobtainable due to reduced consciousness Physical Exam Constitutional: + frail appearing and + mechanically ventilated Eyes: PERRL, conjunctivae normal, anicteric sclerae ENMT: external ear and nose normal, oropharynx normal Neck: trachea midline, no thyromegaly Respiratory: Coarse crackles auscultated bilaterally in all lung phillips, symmetrical chest wall movement. Mechanically ventilated Cardiovascular: Rate/Rhythm: regular rhythm and + tachycardic Heart Sounds: normal S1 and normal S2 Vessels: no JVD Extremities: + abnormal capillary refill and no edema Gastrointestinal (Abdomen): normal bowel sounds, soft, nontender, no hepatosplenomegaly Musculoskeletal: no cyanosis or clubbing, extremities motor strength 5/5 Skin: Generalized mottling noted on patient's trunk, abdomen, and upper and lower lower extremities. No rashes. Neurologic: Unable to assess due to sedation Psychiatric: Unable to assess due to sedation Results & Data Results & Data ([facility]) Vital Signs (Past 12 Hours) Vital Signs Temp Pulse Pulse Resp BP BP Pulse Ox 08/14/21 03:05 37.1 C 112 H 24 132/50 L 91 08/14/21 01:37 37.3 C 142 H 40 H 87/69 L 08/14/21 00:40 160 H 33 H 98/76 L 90 Coding Level of Care Code Critical Care ea addt'l 30 min Diagnoses Anxiety F41.9 Lactic acidosis E87.2 Hypocalcemia E83.51 Elevated troponin R77.8 Acute respiratory failure with hypoxia and hypercapnia J96.01; J96.02 Pneumonia J18.9 Laterality: right Lung location: unspecified part of lung Pneumonia type: due to unspecified organism Atrial fibrillation with rapid ventricular response I48.91 Sepsis A41.9 Sepsis acute organ dysfunction status: unspecified Sepsis type: sepsis due to unspecified organism Septic shock A41.9; R65.21 BERE (acute kidney injury) N17.9 Anticoagulant long-term use Z79.01 Hypothyroidism E03.9 Hypothyroidism type: acquired Hypertension I10 Hypertension type: essential hypertension (1) Hypothyroidism Hypothyroidism type: acquired Qualified Code(s): E03.9 - Hypothyroidism, unspecified (2) Sepsis Sepsis acute organ dysfunction status: unspecified Sepsis type: sepsis due to unspecified organism Qualified Code(s): A41.9 - Sepsis, unspecified organism (3) Hypertension Hypertension type: essential hypertension Qualified Code(s): I10 - Essential (primary) hypertension (4) Pneumonia Laterality: right Lung location: unspecified part of lung Pneumonia type: due to unspecified organism Qualified Code(s): J18.9 - Pneumonia, unspecified organism
[2021-08-14 05:09] LABS: INR 1.5 (0.9-1.1); Prothrombin Time 15.6 Seconds (9.0-12.0)
[2021-08-14 05:10] LABS: Hematocrit (blood only) 36.6 % (37-47); Hemoglobin 11.7 g/dL (12.0-16.0); Mean Corpuscular Hemoglobin 27.1 pg (25-34); Mean Corpuscular Volume 84.7 fL (80-100); Mean Platelet Volume 10.7 fL (7.4-10.4); Nucleated RBC # (auto) 0.02 K/uL (0-0); Nucleated RBC % (auto) 0.2 %; Platelet Count 181 K/uL (130-400); RDW Coefficient of Variation 16.9 % (11.5-14.5); RDW Standard Deviation 52.5 fL (36.4-46.3); Red Blood Count 4.32 M/uL (4.2-5.4); White Blood Count 14.96 K/uL (4.8-10.8)
[2021-08-14 05:20] LABS: Immunoglobulin A 172.9 mg/dl (70-400); Immunoglobulin G 1122.3 mg/dl (635-1741); Immunoglobulin M 75.8 mg/dl (45-281)
[2021-08-14 05:32] LABS: BUN Creatinine Ratio 12.4 (10-20); Bilirubin Direct 0.3 mg/dl (0-0.2); Bilirubin,Total 0.6 mg/dl (0.2-1.0); Calcium 8.1 mg/dl (8.5-10.1); Creatinine Clr Calc Pharmacy 20.3 ml/min; Est GFR (African American) 30.5 ml/min; Est GFR (Non-African American) 26.3 ml/min; Magnesium 1.6 mg/dl (1.7-2.4); Phosphorus 6.2 mg/dl (2.5-4.9); Potassium 3.5 mmol/L (3.5-5.1); Total Protein 5.9 gm/dl (6.0-8.3)
[2021-08-14 05:38] LABS: iSTAT Art Bld Gas pCO2 Correct 37 mmHg (35-46); iSTAT Art Bld Gas pH Corrected 7.251 (7.35-7.45); iSTAT Arterial Blood Gas HCO3 16 meg/L (19-24); iSTAT Arterial Blood Gas pCO2 37 mmHg (35-46); iSTAT Arterial Blood Gas pH 7.25 (7.35-7.45); iSTAT Arterial Blood Gas pO2 70 mmHg (80-95); iSTAT Arterial Blood Gas pO2 C 70; iSTAT Carbon Dioxide 17 mmol/L (24-31); iSTAT FiO2 100 %; iSTAT Hematocrit 35 % (37-47); iSTAT Hemoglobin 11.9 g/dl (12.0-16.0); iSTAT Potassium 3.4 mmol/L (3.3-5.0); iSTAT Site Art Line; iSTAT Sodium 137 mmol/L (135-144)
[2021-08-14 05:38] LABS: iSTAT Art Bld Gas pCO2 Correct 42 mmHg (35-46); iSTAT Art Bld Gas pH Corrected 7.238 (7.35-7.45); iSTAT Arterial Blood Gas HCO3 18 meg/L (19-24); iSTAT Arterial Blood Gas pCO2 42 mmHg (35-46); iSTAT Arterial Blood Gas pH 7.24 (7.35-7.45); iSTAT Arterial Blood Gas pO2 78 mmHg (80-95); iSTAT Arterial Blood Gas pO2 C 78; iSTAT Carbon Dioxide 19 mmol/L (24-31); iSTAT FiO2 100 %; iSTAT Hematocrit 35 % (37-47); iSTAT Hemoglobin 11.9 g/dl (12.0-16.0); iSTAT Potassium 3.7 mmol/L (3.3-5.0); iSTAT Site Art Line; iSTAT Sodium 137 mmol/L (135-144)
[2021-08-14 05:48] LABS: Troponin I 0.42 ng/ml (0-0.04)
[2021-08-14 05:55] LABS: Basophils # (auto) 0.02 K/uL (0-0.2); Basophils % (auto) 0.1 %; Eosinophils # (auto) 0.01 K/uL (0-0.5); Eosinophils % (auto) 0.1 %; Immature Granulocytes # (auto) 0.05 K/uL (0.00-0.02); Immature Granulocytes % (auto) 0.3 %; Monocytes # (auto) 0.75 K/uL (0.11-0.59); Neutrophils # (auto) 12.03 K/uL (1.4-6.5); Neutrophils % (auto) 80.5 %
[2021-08-14] MEDS: HEPARIN SODIUM/DEXTROSE 25,000 UNITS/500 ML BAG IV SCH (06:12)
--- NOTE | 2021-08-14 07:09 | CT Scan Report ---
CT OF THE ABDOMEN AND PELVIS WITH CONTRAST CLINICAL HISTORY: Chest and abdominal pain. COMPARISON STUDY: None. TECHNIQUE: Following IV administration of 119 mL of Optiray, axial images of the abdomen and pelvis w ere obtained from the lung bases to the proximal femurs. Images were reviewed in the axial, sagittal, and coronal planes. IV contrast was administered without complication. Automated exposure control w as utilized for the study. A dose lowering technique was utilized adhering to the principles of ZOLTAN Bocanegra. FINDINGS: Please note that the chest CT will be reported separately. Extensive right lower lobe conso lidation suggestive of pneumonia is better depicted on that exam. No pneumatosis, free air or portal venous gas is present. Hepatic steatosis is noted. There is mild hepatomegaly. No biliary ductal dila tation is identified status post cholecystectomy. Note is made of a 3.3 cm hypodense subcapsular segm ent 6 focus on axial image 161 of 461. There is apparent increased enhancement of the bilateral adren al glands. There is mild nonspecific upper abdominal stranding. The spleen and pancreas are unremarka ble. No peripancreatic infiltration. Note is made of a 3 cm left renal cyst. No hydronephrosis. Mild multifocal scarring within the right kidney is noted. A few subcentimeter bilateral renal lesions are too small to characterize. There is no evidence for a bowel obstruction. The appendix is normal. Alphonso iber and wall thickness of small and large bowel are normal. No lymphadenopathy. Extensive atheroscle rotic plaque of the abdominal aorta is present. No acute fracture or suspicious lesion is identified within the visualized skeletal structures. IMPRESSION: 1. Extensive right lower lobe consolidation suggestive of pneumonia. This is better depicted on the c hest CT will be reported separately. 2. Hepatic steatosis. 3.3 cm hypodense subcapsular segment 6 lesion. This is nonspecific although may reflect a hemangioma or focal fat. Although less likely, a neoplastic etiology is within the differe ntial and therefore nonemergent right upper quadrant ultrasound is recommended. 3. No bowel obstruction. No bowel wall thickening. Normal appendix. 4. Prominent bilateral adrenal enhancement with diminished caliber of the IVC. This can be seen in th e setting of hypoperfusion. 5. Mild nonspecific upper abdominal stranding. ACT 112: Negative or not required by law. Electronically signed by: Bienvenido Moreno M.D. 08/14/2021 7:08 AM
--- NOTE | 2021-08-14 07:13 | XRay Report ---
XR chest 1V portable CLINICAL HISTORY: Respiratory failure. COMPARISON STUDY: Chest radiograph and chest CT August 14, 2021. FINDINGS: Tip of nasogastric tube is below the lower aspect of this image but at least within the bod y of the stomach. Tip of endotracheal tube is slightly obscured but approximately 1.3 cm above the ca estefania. Extensive right lower lobe consolidation persists. Linear left midlung opacity is present. No p neumothorax or pleural effusion is present. Cardiac size is normal. IMPRESSION: 1. Tip of endotracheal tube slightly obscured but approximately 1.3 cm above the stef. Tube could b e withdrawn 1 to 2 cm. 2. Extensive right lower lobe consolidation suggestive of pneumonia, unchanged. 3. No pneumothorax. ACT 112: Negative or not required by law. Electronically signed by: Bienvenido Moreno M.D. 08/14/2021 7:12 AM
--- NOTE | 2021-08-14 07:17 | Emergency Department Note ---
ED Visit Note Endotracheal Intubation Indication: Respiratory failure The patient was on 100% oxygen via BiPAP prior to the procedure. Suction, airway equipment, RSI drugs, respiratory equipment, and appropriate personnel were prepared prior to the initiation of the procedure. A time out was taken. Pre- Intubation pulse ox was 77% aggressive BVM. Induction was performed with 30 mg of etomidate. After observing the clinical benefit of the medications, and vomited in the airway was suctioned. The airway was easily visualized utilizing a glidescope. A 7.5 size ETT tube was placed atraumatically to 24 cm using standard technique. The cuff inflated without signs of malfunction. There were bilateral breath sounds, positive colormetric change, no gastric sounds, and post procedure pulse oximetry was 82%. Inline suctioning on the ventilator was performed. Post intubation x-ray was performed to confirm placement. . : Pneumonia Qualifiers: Pneumonia type: due to unspecified organism Laterality: right Lung location: unspecified part of lung Qualified Code(s): J18.9 - Pneumonia, unspecified organism Sepsis Qualifiers: Sepsis type: sepsis due to unspecified organism Sepsis acute organ dysfunction status: unspecified Qualified Code(s): A41.9 - Sepsis, unspecified organism
--- NOTE | 2021-08-14 07:21 | Hospitalist Progress Note ---
Date of Service August 14, 2021 Assessment & Plan (1) Acute respiratory failure with hypoxia and hypercapnia: Plan: Maite Mcclellan is a 65yo female with PMHx significant for a-fib (on Eliquis and Toprol), h/o cervical cancer, T2DM (A1c 5.8 in 12/2019), Hypothyroidism, and HLD who presented to [facility] ED on 08/14 for fatigue, weakness, malaise, productive cough, nausea, NB/NB vomiting several times and inability to tolerate PO for 1 day. Found to be septic with severe lactic acidosis and resultant acute respiratory failure, requiring intubation in the ED. Sepsis; RLL Pneumonia Respiratory failure likely primarily due to severe lactic acidosis in setting of sepsis due to RLL PNA. Patient decompensated quickly which was likely due to a- fib with RVR in addition to possible aspiration. Intubated/sedated in ED. Admit to ICU. - lactate 11.3 --> 9.3 - procalcitonin 127.86 - imaging with RLL PNA CTA negative for PE - received Cefepime x1 in the ED, will continue with Cefepime (renal dosing) - MRSA nares positive, added vancomycin - s/p 2L NSS boluses in ED, will continue with Bicarb as specified below - blood cx pending - trend lactate, trend CBC in AM -on pressors Acute Hypoxic Hypercapnic Respiratory Failure -2/2 to RLL PNA, sepsis -Intubated with mechanical ventilation, sedated on versed fentanyl -trend ABGs, pulse ox monitoring -patient currently proning Lactic Acidosis Lactate 11.3, HCO3 10, AG 26. Due to sepsis 2/2 PNA. - ordered NaHCO3 bolus and drip -> on hold - trend CMP in AM BERE Cr 2.36, normal baseline. 2/2 to sepsis. - given IVF in ER, careful with additional fluids given pulm status -last creat 1.93 -davidson in place Electrolyte Abnormalities - K 2.9 --> 3.7 - Phos 6.6, iCa 1.11. Likely all 2/2 sepsis with severe lactic acidosis. - continue to trend - suspect improvement with treatment of sepsis/PNA Elevated Troponin Troponin 0.41 but no chest pain and EKG without ST/T wave changes. Suspect demand ischemia due to sepsis. - trended up to 0.64 Atrial Fibrillation with RVR Likely 2/2 sepsis/PNA. Recent TTE in 03/2021 with EF 60-65%. - ordered TTE - started Heparin gtt without bolus, as patient has CHADS-VASc score of 4 and will not be able to take Eliquis - hold home Toprol XL Chronic Medical Conditions HTN/HLD: hold home Losartan, Rosuvastatin and Aspirin Depression/anxiety: hold home Sertraline Diabetic Neuropathy: hold home Gabapentin Hypothyroidism: hold home Synthroid FEN/GI: NPO DVT Prophylaxis: Heparin drip Code Status: Full Disposition: ICU (2) Pneumonia: (3) Atrial fibrillation with rapid ventricular response: (4) Sepsis: (5) Hypokalemia: (6) BERE (acute kidney injury): (7) Hypothyroidism: (8) Hypertension: (9) Diabetes: (10) Elevated troponin: (11) Hypocalcemia: (12) Lactic acidosis: (13) Anxiety: Admission and Anticipated Discharge Date Admission Date: August 14, 2021 Supervising Physician Co-Signing Physician Notes I personally examined the patient and verified all linares points of history and exam, discussed case, and agree with decision making with Dr Newton holloway HPI or ISABEL obtainable. on ventilator, proned. d/w ICU - management greatly appreciated vitals noted, prone on vent. chest rise/fall noted. otherwise as above sepsis/septic shock/ARDS - related to pneumonia. continue current management - otherwise as above Subjective Patient seen at bedside, obtunded, mechanically vented. Review of Systems Review of Systems: Unobtainable due to endotracheal tube and Unobtainable due to reduced consciousness Physical Exam Constitutional: + mechanically ventilated ENMT: external ear and nose normal, oropharynx normal Neck: trachea midline, no thyromegaly Respiratory: + tachypneic Auscultation: + rhonchi Cardiovascular: Rate/Rhythm: + tachycardic Extremities: no edema Skin: + mottling Neurologic: + obtunded Results & Data Results & Data ([facility]) Vital Signs (Past 12 Hours) Vital Signs Temp Pulse Pulse Resp BP BP Pulse Ox 08/14/21 06:45 37.4 C 105 H 34 H 93 08/14/21 06:30 37.3 C 105 H 34 H 115/53 L 93 08/14/21 06:15 37.2 C 106 H 34 H 93 08/14/21 06:00 37.1 C 107 H 35 H 111/54 L 94 08/14/21 05:45 37.1 C 107 H 35 H 93 08/14/21 05:30 37.0 C 108 H 34 H 75/59 L 92 08/14/21 05:18 36.9 C 108 H 35 H 93 08/14/21 04:24 30 H 08/14/21 04:07 08/14/21 04:00 112 H 33 H 92 08/14/21 03:05 37.1 C 129 H 112 H 28 H 132/50 L 83 L 08/14/21 01:37 37.3 C 142 H 40 H 87/69 L 08/14/21 00:40 160 H 33 H 98/76 L 90 Pulse Ox 08/14/21 06:45 08/14/21 06:30 08/14/21 06:15 08/14/21 06:00 08/14/21 05:45 08/14/21 05:30 08/14/21 05:18 08/14/21 04:24 08/14/21 04:07 92 08/14/21 04:00 08/14/21 03:05 08/14/21 01:37 08/14/21 00:40 Resident Activity Tracking Resident Involvement: Resident Care Provided Care Provided: Adult Hospital Medicine (1) Diabetes Diabetes mellitus complication status: without complication Diabetes mellitus termite renewal inspector insulin use: without intermediate use Diabetes mellitus type: type 2 Qualified Code(s): E11.9 - Type 2 diabetes mellitus without complications (2) Hypothyroidism Hypothyroidism type: acquired Qualified Code(s): E03.9 - Hypothyroidism, unspecified (3) Sepsis Sepsis acute organ dysfunction status: unspecified Sepsis type: sepsis due to unspecified organism Qualified Code(s): A41.9 - Sepsis, unspecified organism (4) Hypertension Hypertension type: essential hypertension Qualified Code(s): I10 - Essential (primary) hypertension (5) Pneumonia Laterality: right Lung location: unspecified part of lung Pneumonia type: due to unspecified organism Qualified Code(s): J18.9 - Pneumonia, unspecified organism
[2021-08-14] MEDS: POTASSIUM ACETATE/NSS 10 MEQ/105 ML BAG IV SCH ×2 (07:38→08:26)
[2021-08-14] MEDS: MAGNESIUM SULFATE / D5W 1 GM/100 ML BAG IV SCH ×3 (07:38→10:42)
--- NOTE | 2021-08-14 07:47 | CT Scan Report ---
CT head/brain wo con CLINICAL HISTORY: AMS . Confusion COMPARISON STUDY: No previous studies for comparison. CT DOSE: 2315.67 mGy.cm TECHNIQUE: Standard CT of the Brain was performed without IV contrast. A dose lowering technique was utilized adhering to the principles of ALARA. FINDINGS: The study is limited by patient motion artifact. Extraaxial space: There is no evidence for subdural hematoma. There are no extra-axial fluid collecti ons. Ventricles and cisterns: The ventricles are mildly dilated bilaterally. There is no evidence for mid line shift or mass effect. Parenchyma: There is no subarachnoid or intraparenchymal hemorrhage. There is no evidence for an acu te infarct or cerebral edema. There is mild cerebral cortical atrophy and decreased attenuation in th e periventricular white matter representing remote small vessel disease. There are no gross mass lesi ons. Osseous structures: There is no evidence for an acute fracture. The visualized paranasal sinuses are clear. The mastoid air cells are clear bilaterally. Soft tissues: There is no evidence for focal soft tissue swelling. IMPRESSION: 1. No acute intracerebral pathology. 2. Cerebral cortical atrophy and remote small vessel disease. ACT 112: Negative or not required by law. Electronically signed by: Zheng Simons M.D. 08/14/2021 7:46 AM
--- NOTE | 2021-08-14 07:50 | XRay Report ---
XR chest 1V portable at 3:10 AM CLINICAL HISTORY: s/p intubation. COMPARISON STUDY: 08/14/2021 at 12:21 AM TECHNIQUE: 1 view of the chest FINDINGS: Single frontal view of the chest demonstrates the cardiomediastinal silhouette to be within normal li mits. Endotracheal tube has been place with its tip approximately 2.4 cm above the stef. NG tube is also in place with its tip extending into the upper body of the stomach. The lungs are clear of alve olar opacities. There is slight haziness at the right lung base suggesting pleural fluid layering ranjana ng the posterior gutter. There is no evidence for left pleural effusion. There is no evidence for vas cular congestion. There is no acute osseous pathology. IMPRESSION: 1. ET and NG tubes in satisfactory position. 2. Evidence for right pleural effusion layering along the posterior gutter. ACT 112: Negative or not required by law. Electronically signed by: Zheng Simons M.D. 08/14/2021 7:49 AM
[2021-08-14] MEDS ORDERED: VECURONIUM BROMIDE 10 MG VIAL IV ONE (07:58)
--- NOTE | 2021-08-14 07:59 | XRay Report ---
XR chest 1V portable CLINICAL HISTORY: CP. Sepsis COMPARISON STUDY: 01/12/2019 TECHNIQUE: 1 view of the chest FINDINGS: Single frontal view of the chest demonstrates the cardiomediastinal silhouette to be within normal li mits. There is a decreased inspiratory effort with elevation of the hemidiaphragms and crowding of th e bronchovascular markings at the lung bases and centrally. There is minimal right basilar atelectasi s. The lungs are otherwise clear of alveolar opacities. There is no evidence for pleural effusion. Th ere is no evidence for vascular congestion. There is no acute osseous pathology. IMPRESSION: 1. Compared to the previous study, there is a decreased inspiratory effort with evidence for right ba silar atelectasis. ACT 112: Negative or not required by law. Electronically signed by: Zheng Simons M.D. 08/14/2021 7:58 AM
[2021-08-14 08:02] LABS: iSTAT Art Bld Gas pCO2 Correct 38 mmHg (35-46); iSTAT Art Bld Gas pH Corrected 7.226 (7.35-7.45); iSTAT Arterial Blood Gas HCO3 16 meg/L (19-24); iSTAT Arterial Blood Gas pCO2 37 mmHg (35-46); iSTAT Arterial Blood Gas pH 7.23 (7.35-7.45); iSTAT Arterial Blood Gas pO2 71 mmHg (80-95); iSTAT Arterial Blood Gas pO2 C 74; iSTAT Carbon Dioxide 17 mmol/L (24-31); iSTAT FiO2 100 %; iSTAT Hematocrit 35 % (37-47); iSTAT Hemoglobin 11.9 g/dl (12.0-16.0); iSTAT Potassium 3.4 mmol/L (3.3-5.0); iSTAT Site Art Line; iSTAT Sodium 135 mmol/L (135-144)
--- NOTE | 2021-08-14 08:04 | CT Scan Report ---
CT angio chest PE protocol CLINICAL HISTORY: Chest pain. Status post intubation. Suspicion of right pleural effusion. Evaluate f or pulmonary embolus. COMPARISON STUDY: Portable chest from 08/14/2021 CT DOSE: TECHNIQUE: CT Angio of the chest was performed.followed by image post processing with coronal, and s agittal MIP reformats. Contrast Volume: Optiray 320, 119 ml FINDINGS: Vasculature: There is homogeneous perfusion of the pulmonary vasculature bilaterally. No intraluminal filling defects or evidence for pulmonary embolus is seen. Airway: The airway is clear. No endobronchial lesion is identified. Lungs: Compared to the portable chest radiograph, the suspected right pleural effusion actually repre sents a confluent alveolar opacity involving the right lower lobe with air bronchograms present. The findings represent the presence of pneumonia. The remainder of the lungs are clear of acute alveolar opacities, air bronchograms or pulmonary nodules. Pleura: There is no evidence for pleural effusion. There is no evidence for pneumothorax. Mediastinum: There is no evidence for pathologic adenopathy. The heart size is within normal limits. Mild coronary artery calcification is present. The thoracic aorta is within normal limits. Atheroscle rotic calcification is present. There is no evidence for pericardial effusion. Upper abdomen:There is a 2.3 cm low-attenuation lesion involving the left adrenal gland most characte ristic of an adenoma. The right adrenal gland is within normal limits. Osseous structures: There is no acute osseous pathology. Impression: 1. No CTA evidence for pulmonary embolus. 2. Compared to the portable chest radiograph, the density seen at the right lung base represents a co nfluent alveolar infiltrate with air bronchograms characteristic of pneumonia. 3. There is no evidence for pleural effusion. 4. Additional nonacute findings are delineated above. ACT 112: Negative or not required by law. Electronically signed by: Zheng Simons M.D. 08/14/2021 8:03 AM
[2021-08-14] MEDS ORDERED: NORMOSOL-R 500 ML IV ONE (08:08)
[2021-08-14] MEDS ORDERED: HYDROCORTISONE SOD SUCCINATE 100 MG/2 ML VIAL IM STA (08:12)
[2021-08-14] MEDS ORDERED: PHENYLEPHRINE HCL 20 MG in DEXTROSE 5% 500 ML IV SCH (08:15)
[2021-08-14] MEDS ORDERED: VASOPRESSIN 20 UNITS in 0.9 % SODIUM CHLORIDE 100 ML IV SCH (08:15)
[2021-08-14] MEDS ORDERED: HYDROCORTISONE SOD 50 MG in SYRINGE 0 ML IV SCH (08:15)
[2021-08-14] MEDS: VASOPRESSIN 20 UNITS in 0.9 % SODIUM CHLORIDE 100 ML IV SCH ×2 (08:24→15:41)
[2021-08-14] MEDS ORDERED: ACETAMINOPHEN 10MG/ML PEDIATRIC DOSING IV PRN (08:29)
[2021-08-14] MEDS: PHENYLEPHRINE HCL 20 MG in DEXTROSE 5% 500 ML IV SCH (08:33)
--- NOTE | 2021-08-14 08:54 | Communication Note ---
Date of Service: August 14, 2021 I separately rounded on the patient from the overnight ALLAN. Upon my evaluation, the patient was profoundly hypotensive on high doses of Levophed and had sa turations in the low 70s on 100% FiO2 and a PEEP of 16 via the ventilator. Mottling was noted throughout her lower extremities. She is currently on a Versed and fentanyl infusion. Femoral central line and radial arterial lines are in place. She was given vecuronium by me in order to promote ventilator synchrony. I went up on her tidal volume to 370 mL and PEEP to 20 cm H2O. We also went up on a respiratory rate of 35 given her metabolic acidosis. Ultimately, we proned the patient at approximately 8 AM due to severe ARDS. Her oxygenation improved significantly and we were able to wean down her FiO2 to 50% and PEEP of 14. She is currently saturating in the low 90s. Her hemodynamic parameters have also improved as we wean down her PEEP. She is currently on 0.25 Levophed and vasopressin was initiated to augment the Levophed further. [id number] ultrasound of the heart was performed by me which did not demonstrate any obvious evidence of tamponade. IVC appeared dilated. LV f unction appeared to be intact. Patient's son was called and updated over the phone. He indicated that he would like the patient to be full code and her CODE STATUS was changed. Continue broad-spectrum antibiotics for sepsis cefepime. She does have a rising temperature. We will also check a salicylate level and acetaminophen level given her transaminitis. Transaminitis likely related to shock liver state. Overall it appears that she has ARDS from aspiration pneumonia. Coding Level of Care Code 14495 Prolonged Care (int'l) Time Spent (min) 76
[2021-08-14 09:07] LABS: iSTAT Arterial Blood Gas HCO3 15 meg/L (19-24); iSTAT Arterial Blood Gas pCO2 38 mmHg (35-46); iSTAT Arterial Blood Gas pH 7.21 (7.35-7.45); iSTAT Arterial Blood Gas pO2 87 mmHg (80-95); iSTAT Carbon Dioxide 16 mmol/L (24-31); iSTAT FiO2 65 %; iSTAT Site Art Line
[2021-08-14 09:13] LABS: Acetaminophen < 3 ug/ml (10-30); Salicylate < 3.0 mg/dl (3.0-30)
[2021-08-14 09:44] LABS: Calcium 7.7 mg/dl (8.5-10.1); Creatinine Clr Calc Pharmacy 18.2 ml/min; Est GFR (African American) 26.6 ml/min; Potassium 3.7 mmol/L (3.5-5.1)
[2021-08-14] MEDS ORDERED: VECURONIUM BROMIDE 10 MG VIAL IV PRN (09:56)
[2021-08-14] MEDS ORDERED: VANCOMYCIN CONSULT ACTIVE PRN (09:57)
[2021-08-14] MEDS ORDERED: ACETAMINOPHEN SUSP 500 MG/15.6 ML UDP PO PRN (09:58)
[2021-08-14] MEDS ORDERED: VANCOMYCIN HCL 1,000 MG in SODIUM CHLORIDE 0.9% 250 ML IV ONE (10:00)
[2021-08-14 10:05] LABS: iSTAT Arterial Blood Gas pCO2 37 mmHg (35-46); iSTAT Arterial Blood Gas pH 7.12 (7.35-7.45); iSTAT Hematocrit 34 % (37-47); iSTAT Hemoglobin 11.6 g/dl (12.0-16.0); iSTAT Potassium 3.6 mmol/L (3.3-5.0); iSTAT Sodium 136 mmol/L (135-144)
[2021-08-14 10:06] LABS: iSTAT Arterial Blood Gas HCO3 12 meg/L (19-24); iSTAT Arterial Blood Gas pO2 47 mmHg (80-95); iSTAT Carbon Dioxide 13 mmol/L (24-31); iSTAT Sample Type Arterial
[2021-08-14] MEDS: FAMOTIDINE 20 MG in SYRINGE 3 ML IV SCH (10:42)
[2021-08-14] MEDS ORDERED: CEFEPIME 1,000 MG in SYRINGE 0 ML IV SCH (12:00)
[2021-08-14 12:15] LABS: iSTAT Art Bld Gas pCO2 Correct 34 mmHg (35-46); iSTAT Art Bld Gas pH Corrected 7.224 (7.35-7.45); iSTAT Arterial Blood Gas HCO3 14 meg/L (19-24); iSTAT Arterial Blood Gas pCO2 33 mmHg (35-46); iSTAT Arterial Blood Gas pH 7.24 (7.35-7.45); iSTAT Arterial Blood Gas pO2 87 mmHg (80-95); iSTAT Arterial Blood Gas pO2 C 92; iSTAT Carbon Dioxide 15 mmol/L (24-31); iSTAT FiO2 55 %; iSTAT Hematocrit 33 % (37-47); iSTAT Hemoglobin 11.2 g/dl (12.0-16.0); iSTAT Potassium 3.6 mmol/L (3.3-5.0); iSTAT Site Art Line; iSTAT Sodium 131 mmol/L (135-144)
[2021-08-14 12:27] LABS: Partial Thromboplastin Ratio 4.9
[2021-08-14 12:33] LABS: Partial Thromboplastin Time 135.2 Seconds (21.0-31.0)
--- NOTE | 2021-08-14 12:53 | Billing Data ---
Date of Service August 14, 2021 Coding Level of Care Code 72606 Subseq Hosp Care Lvl 1
--- NOTE | 2021-08-14 14:26 | Pharmacy Report ---
Pharmacy Vanc AUC Short Note - Date of Service August 14, 2021 - Assessment & Plan Assessment * 65 year old F receiving cefepime and vancomycin for treatment of septic shock 2nd PNA. * Pertinent microbiologic data includes: Positive MRSA Nasal Swab (on repeat order) * SCr with significant impairment compared to baseline Vancomycin * AUC/BRANDON is the preferred PK/PD target for vancomycin because dosing is effective and associated with decreased risk of nephrotoxicity compared to traditional trough targets * BERE noted - will dose via level for now * Load with 20 mg/kg IV x1 Plan * Vancomycin 1000 mg IV x1 administered this AM * Random level tomorrow AM Pharmacy will continue to follow and will adjust dose/frequency as necessary. Thank you.
[2021-08-14 15:00] LABS: iSTAT Arterial Blood Gas HCO3 14 meg/L (19-24); iSTAT Arterial Blood Gas pCO2 33 mmHg (35-46); iSTAT Arterial Blood Gas pH 7.23 (7.35-7.45); iSTAT Arterial Blood Gas pO2 79 mmHg (80-95); iSTAT Carbon Dioxide 15 mmol/L (24-31); iSTAT FiO2 45 %; iSTAT Site Art Line
[2021-08-14 19:02] LABS: Albumin Globulin Ratio 0.8 (0.9-2); Albumin Level 2.6 gm/dl (3.4-5.0); BUN Creatinine Ratio 11.8 (10-20); Bilirubin,Total 0.5 mg/dl (0.2-1.0); Calcium 6.6 mg/dl (8.5-10.1); Creatinine Clr Calc Pharmacy 15.9 ml/min; Est GFR (African American) 22.7 ml/min; Est GFR (Non-African American) 19.6 ml/min; Globulin 3.1 gm/dl (2.5-4.0); Total Protein 5.7 gm/dl (6.0-8.3)
--- NOTE | 2021-08-14 19:34 | XCELERA ---
[id number]
[2021-08-14 20:04] LABS: iSTAT Arterial Blood Gas HCO3 14 meg/L (19-24); iSTAT Arterial Blood Gas pCO2 33 mmHg (35-46); iSTAT Arterial Blood Gas pH 7.24 (7.35-7.45); iSTAT Arterial Blood Gas pO2 86 mmHg (80-95); iSTAT Carbon Dioxide 15 mmol/L (24-31); iSTAT FiO2 45 %; iSTAT Site Art Line
[2021-08-14] MEDS ORDERED: ETOMIDATE 2 MG/ML 20 ML VIAL IV ONE (20:10)
[2021-08-14] MEDS: HYDROCORTISONE SOD 50 MG in SYRINGE 0 ML IV SCH (20:44)
[2021-08-14 21:03] LABS: Partial Thromboplastin Ratio > 5.1
[2021-08-14 21:14] LABS: Partial Thromboplastin Time > 139.0 Seconds (21.0-31.0)
[2021-08-14 22:58] LABS: Partial Thromboplastin Ratio > 5.1
[2021-08-14 23:27] LABS: Partial Thromboplastin Time > 139.0 Seconds (21.0-31.0)
--- NOTE | 2021-08-14 23:39 | Billing Data ---
Date of Service August 14, 2021 Coding Level of Care Code Critical Care 1st - mins
[2021-08-15] MEDS: VASOPRESSIN 20 UNITS in 0.9 % SODIUM CHLORIDE 100 ML IV SCH ×3 (00:30→19:21)
[2021-08-15] MEDS: PHENYLEPHRINE HCL 20 MG in DEXTROSE 5% 500 ML IV SCH ×2 (00:37→13:10)
[2021-08-15] MEDS: HYDROCORTISONE SOD 50 MG in SYRINGE 0 ML IV SCH ×4 (00:38→18:58)
[2021-08-15 01:01] LABS: Partial Thromboplastin Ratio 4.8
--- NOTE | 2021-08-15 01:01 | Communication Note ---
Date of Service: August 15, 202114 Procedure: Supine Maneuver Attending: Dr. Ortez APC: Sarkis Stoll PA-C Indication: Requiring lung recruitment intervention in the setting of advanced ARDS with poor lung compliance and oxygenation on standard ventilator settings. Patient requiring supination in the setting of advanced ARDS per imaging, ventilator requirements, and calculated P:F ratio. Appropriate staff was assembled including myself, Respiratory Therapy, and Nursing Staff. A time-out was completed verifying correct patient, time from recent pronation/supination, current ventilator settings, review of any prior issues during pronation/supination maneuvers. Patient was fully undressed as to be able to view all current IV sites, central venous access sites, arterial lines, endotracheal tube, Nassar catheter, etc. After properly identifying/securing all lines, tubes, etc., the patient was ``papoosed using flat sheets. On my count, the patient was slid to the edge of the bed. After reevaluating all lines, tubes, etc., the patient was then placed on their side allowing for RT to maintain control of ET tube and ready for completion of Supination maneuver. Final check of all lines, tubes, etc. was completed by myself and nursing staff. Blood pressure, heart rhythm, and oxygen saturations were monitored for several minutes s/p maneuver. Discussion was held with patients RN and RT regarding ongoing management. Patient tolerated maneuver well. No immediate complications were noted. TIME SUPINE: 0015 I have personally spent 25 minutes of critical care time in the direct management of this patient. This is a life/limb threatening event. This includes time spent evaluating patient, direct bedside care, chart review, placing orders, interpretation of diagnostic studies, discussion with consultants, patient, and family members, as well as other required patient management activities. This time is exclusive of all separately billable procedures, and teaching time and separate from and in addition to any other critical care service time. Coding Level of Care Code Critical Care 1st 30-74 mins Time Spent (min) 25
[2021-08-15 01:03] LABS: Partial Thromboplastin Time 131.3 Seconds (21.0-31.0)
[2021-08-15] MEDS: NOREPINEPHRINE/D5W 8 MG/508 ML BAG IV SCH ×6 (01:13→14:52)
[2021-08-15] MEDS ORDERED: SODIUM BICARB 8.4% INJ 50 MEQ/50 ML SYR IV STA ×2 (02:00→05:56)
[2021-08-15] MEDS ORDERED: SODIUM BICARB 8.4% INJ 50 MEQ/50 ML SYR IV ONE ×4 (02:02→10:46)
[2021-08-15] MEDS ORDERED: NORMOSOL-R 500 ML IV ONE ×2 (02:02→04:14)
[2021-08-15 02:10] LABS: iSTAT Arterial Blood Gas HCO3 10 meg/L (19-24); iSTAT Arterial Blood Gas pCO2 32 mmHg (35-46); iSTAT Arterial Blood Gas pH 7.11 (7.35-7.45); iSTAT Arterial Blood Gas pO2 89 mmHg (80-95); iSTAT Carbon Dioxide 11 mmol/L (24-31); iSTAT FiO2 60 %; iSTAT Site Art Line
[2021-08-15] MEDS: CEFEPIME 2,000 MG in SYRINGE 0 ML IV SCH (02:23)
[2021-08-15 02:38] LABS: INR 2.3 (0.9-1.1); Prothrombin Time 23.7 Seconds (9.0-12.0)
[2021-08-15 02:43] LABS: Partial Thromboplastin Ratio 4.6
[2021-08-15 03:01] LABS: Partial Thromboplastin Time 126.2 Seconds (21.0-31.0)
[2021-08-15 03:02] LABS: Hematocrit (blood only) 32.2 % (37-47); Hemoglobin 10.3 g/dL (12.0-16.0); Mean Corpuscular Hemoglobin 27.5 pg (25-34); Mean Corpuscular Volume 85.9 fL (80-100); Platelet Count 169 K/uL (130-400); RDW Coefficient of Variation 17.3 % (11.5-14.5); RDW Standard Deviation 55.3 fL (36.4-46.3); Red Blood Count 3.75 M/uL (4.2-5.4); White Blood Count 21.31 K/uL (4.8-10.8)
[2021-08-15 03:25] LABS: Troponin I 0.53 ng/ml (0-0.04)
[2021-08-15 03:27] LABS: ALC (manual) 0.38 K/uL (1.2-3.4); ANC (manual) 19.22 K/uL (1.4-6.5); Echinocytes 2+; Lymphocytes # (manual) 0.38 K/uL (1.2-3.4); Lymphocytes % (manual) 1.8 %; Monocytes # (manual) 1.13 K/uL (0.11-0.59); Monocytes % (manual) 5.3 %; Myelocytes # (manual) 0.58 K/uL (0-0); Myelocytes % (manual) 2.7 %; Neutrophils # (manual) 19.22 K/uL (1.4-6.5); Neutrophils % (manual) 90.2 %
[2021-08-15 03:49] LABS: Albumin Level 2.2 gm/dl (3.4-5.0); Bilirubin Direct 0.3 mg/dl (0-0.2); Bilirubin,Total 0.8 mg/dl (0.2-1.0); Calcium 5.9 mg/dl (8.5-10.1); Creatinine Clr Calc Pharmacy 13.9 ml/min; Est GFR (African American) 19.3 ml/min; Est GFR (Non-African American) 16.6 ml/min; Magnesium 2.6 mg/dl (1.7-2.4); Phosphorus 11.6 mg/dl (2.5-4.9); Potassium 4.7 mmol/L (3.5-5.1)
[2021-08-15] MEDS ORDERED: CALCIUM CHLORIDE 10% 1,000 MG in DEXTROSE 5% 50 ML IV STA (04:24)
[2021-08-15 04:48] LABS: iSTAT Arterial Blood Gas HCO3 11 meg/L (19-24); iSTAT Arterial Blood Gas pCO2 32 mmHg (35-46); iSTAT Arterial Blood Gas pH 7.14 (7.35-7.45); iSTAT Arterial Blood Gas pO2 113 mmHg (80-95); iSTAT Carbon Dioxide 12 mmol/L (24-31); iSTAT FiO2 100 %; iSTAT Site Art Line
[2021-08-15 05:32] LABS: Partial Thromboplastin Ratio 3.5
--- NOTE | 2021-08-15 05:45 | Communication Note ---
Date of Service: August 15, 2021 Was informed by nursing staff after the patient had been made supine that she was now much less responsive. She was thought to be without gag, cough, or cor halley reflexes. I did assess the patient at bedside. Her sedation was titrated down. She did have cough with suctioning. Pupils equal in size bilaterally without dilation. No response to painful stimuli. At this point, the patient is still requiring high doses of vasoactive medications including levophed, Brayan- Synephrine, and vasopressin. I am concerned about the patient's stability for transport to CT for evaluation of change in neurological status. At this point, baseline labs were repeated. Patient with persistent lactic acidosis. Did check CPK. Persistently acidotic. Treated with 2 amps of bicarb. Patient was noted to require stable amounts of pressors and they were actually able to be titrated down a bit. Nursing staff was able to transport patient to CT. Of note, the patient's abdomen was noted to be distended but not rigid on exam. Will add CT abd/pelvis as well. Upon return from CT scan, patient was noted to have transient increase in FiO2 requirement. Repeat labs suggest persistent metabolic acidosis. Calcium treated. Received additional does of BiCarb. Awaiting CT findings. I have personally spent 55 minutes of critical care time in the direct management of this patient. This is a life/limb threatening event. This includes time spent evaluating patient, direct bedside care, chart review, placing orders, interpretation of diagnostic studies, discussion with consultants, patient, and family members, as well as other required patient management activities. This time is exclusive of all separately billable procedures, and teaching time and separate from and in addition to any other critical care service time. Coding Level of Care Code Critical Care 1st 30-74 mins Time Spent (min) 55
--- NOTE | 2021-08-15 05:47 | Electrocardiogram Report ---
Test Reason : Blood Pressure : / mmHG Vent. Rate : 146 BPM Atrial Rate : 308 BPM P-R Int : 000 ms QRS Dur : 078 ms QT Int : 308 ms P-R-T Axes : 000 016 030 degrees QTc Int : 479 ms Atrial fibrillation with rapid ventricular response with premature ventricular or aberrantly conducte d complexes Nonspecific ST and T wave abnormality Abnormal ECG When compared with ECG of 14-JAN-2019 08:45, Atrial fibrillation has replaced Sinus rhythm Vent. rate has increased BY 80 BPM Confirmed by Josh Castro ([id number]) on 08/15/2021 5:47:27 AM Referred By: REFERRED SELF Confirmed By:Josh Castro
--- NOTE | 2021-08-15 05:47 | Procedure Note ---
Procedure Note Date of Service August 15, 2021 Note Procedure: Arterial Line Placement Attending: Dr. Ortez APC: Sarkis Stoll PA-C Indication: Hemodynamic monitoring Anesthesia: None Emergent Consent implied in the setting of clinical deterioration and need for close hemodynamic monitoring, ABG monitoring, frequent lab draws, etc. A time-out was completed verifying correct patient, procedure, site, positioning, and implant(s) or special equipment if applicable. Allens test was performed to ensure adequate perfusion. Patients RIGHT wrist was prepped and draped in the usual sterile fashion. Ultrasound guidance was used to aid needle placement. A 20g Arrow arterial line was introduced into the RIGHT Radial artery. Catheter was threaded, and the needle was removed with appropriate blood return. Good waveform was observed. The patient tolerated the procedure well. Confirmation of placement with ultrasound. Blood Loss: Minimal Complications: None Procedural Ultrasound Guidance: Procedure Date: 08/15/2021 Indication: Hemodynamic Monitoring, Frequent ABGs/Lab draws. Attending: Dr. Ortez APC: Sarkis Stoll PA-C Artery Identified: YES Line confirmed in Artery with ultrasound: YES Complications: NONE Patient tolerated procedure: WELL Coding CPT Codes Tubes, Drains, and Vasc Access - Tubes, Drains, and Vasc Access: [id number] Place Catheter In Artery ([id number]) [facility] [place] Procedure Codes (Charges) Tubes, Drains, and Vasc Access Procedure 3: Tubes, Drains, and Vasc Access: [id number] Place Catheter In Artery
--- NOTE | 2021-08-15 05:49 | Electrocardiogram Report ---
Test Reason : Blood Pressure : / mmHG Vent. Rate : 152 BPM Atrial Rate : 152 BPM P-R Int : 000 ms QRS Dur : 080 ms QT Int : 314 ms P-R-T Axes : 000 014 030 degrees QTc Int : 499 ms Atrial fibrillation with rapid ventricular response Nonspecific ST and T wave abnormality Prolonged QT Abnormal ECG When compared with ECG of 14-AUG-2021 00:24, No significant change Confirmed by Josh Castro ([id number]) on 08/15/2021 5:48:46 AM Referred By: REFERRED SELF Confirmed By:Josh Castro
[2021-08-15 05:52] LABS: Partial Thromboplastin Time 95.4 Seconds (21.0-31.0)
--- NOTE | 2021-08-15 06:00 | Electrocardiogram Report ---
Test Reason : Blood Pressure : / mmHG Vent. Rate : 106 BPM Atrial Rate : 106 BPM P-R Int : 132 ms QRS Dur : 070 ms QT Int : 388 ms P-R-T Axes : 073 032 057 degrees QTc Int : 516 ms Sinus tachycardia Prolonged QT Abnormal ECG When compared with ECG of 14-AUG-2021 00:24, ST no longer depressed in Anterior leads Sinus rhythm has replaced Atrial fibrillation Confirmed by Josh Castro ([id number]) on 08/15/2021 6:00:06 AM Referred By: REFERRED SELF Confirmed By:Josh Castro
[2021-08-15] MEDS: SODIUM BICARBONATE 8.4% 150 MEQ in DEXTROSE 5% 1,000 ML IV SCH ×3 (06:06→19:21)
[2021-08-15 06:10] LABS: iSTAT Art Bld Gas pCO2 Correct 30 mmHg (35-46); iSTAT Art Bld Gas pH Corrected 7.125 (7.35-7.45); iSTAT Arterial Blood Gas HCO3 10 meg/L (19-24); iSTAT Arterial Blood Gas pCO2 30 mmHg (35-46); iSTAT Arterial Blood Gas pH 7.13 (7.35-7.45); iSTAT Arterial Blood Gas pO2 103 mmHg (80-95); iSTAT Arterial Blood Gas pO2 C 103; iSTAT Carbon Dioxide 11 mmol/L (24-31); iSTAT FiO2 90 %; iSTAT Hematocrit 32 % (37-47); iSTAT Hemoglobin 10.9 g/dl (12.0-16.0); iSTAT Potassium 4.7 mmol/L (3.3-5.0); iSTAT Site Art Line; iSTAT Sodium 124 mmol/L (135-144)
--- NOTE | 2021-08-15 07:06 | Hospitalist Progress Note ---
Date of Service August 15, 2021 Assessment & Plan (1) Acute respiratory failure with hypoxia and hypercapnia: Plan: Maite Mcclellan is a 65yo female with PMHx significant for a-fib (on Eliquis and Toprol), h/o cervical cancer, T2DM (A1c 5.8 in 12/2019), Hypothyroidism, and HLD who presented to [facility] ED on 08/14 for fatigue, weakness, malaise, productive cough, nausea, NB/NB vomiting several times and inability to tolerate PO for 1 day. Found to be septic with severe lactic acidosis and resultant acute respiratory failure, requiring intubation in the ED. Acute Abdomen -CT abd/pelvis: Interval development of trace gas within the left hepatic lobe. This could reflect portal venous gas or pneumobilia. No definite pneumatosis however mesenteric stranding associated with multiple small bowel loops. Therefore, small bowel ischemia is within the differential. -patient went for ex lap with surgery, removed large section of necrotic small bowel, wound vac in place -mortality risk high, family is aware Sepsis; RLL Pneumonia Respiratory failure likely primarily due to severe lactic acidosis in setting of sepsis due to RLL PNA. Patient decompensated quickly which was likely due to a- fib with RVR in addition to possible aspiration. Intubated/sedated in ED. Admit to ICU. - lactate 11.3 --> 9.3 --> 20.3 - procalcitonin 127.86 --> >200 - WB 21.92 --> 13.17 - imaging with RLL PNA CTA negative for PE - received Cefepime x1 in the ED, will continue with Cefepime (renal dosing), metronizadole - MRSA nares positive, added vancomycin - s/p 2L NSS boluses in ED, will continue with Bicarb - blood cx pending - alpha strep, not enterococcus - trend lactate, trend CBC in AM - on 3 pressors - patient previously proned without improvement, returned to supine position - after abd ex lap, able to wean down pressors and FiO2 down from 100% to 80% Acute Hypoxic Hypercapnic Respiratory Failure -2/2 to RLL PNA, sepsis -Intubated with mechanical ventilation, sedated on versed fentanyl -trend ABGs, pulse ox monitoring -patient was proned, returned to supine position Lactic Acidosis Lactate 11.3, HCO3 10, AG 26 on admit. Due to sepsis 2/2 PNA. - ordered NaHCO3 bolus and drip -> on hold - trend CMP in AM BERE Cr 2.36, normal baseline. 2/2 to sepsis. - given IVF in ER, careful with additional fluids given pulm status -last creat 2.69 -davidson in place DM -pharmacy consulted, began insulin drip Electrolyte Abnormalities - K 2.9 --> 4.0 - Phos 6.6, iCa 1.11. Likely all 2/2 sepsis with severe lactic acidosis. - continue to trend - suspect improvement with treatment of sepsis/PNA Elevated Troponin Troponin 0.41 but no chest pain and EKG without ST/T wave changes. Suspect demand ischemia due to sepsis. - trended up to 0.64 --> 0.53 Atrial Fibrillation with RVR Likely 2/2 sepsis/PNA. Recent TTE in 03/2021 with EF 60-65%. - ordered TTE - started Heparin gtt without bolus, as patient has CHADS-VASc score of 4 and will not be able to take Eliquis surgery recommends heparin drip without bolus - hold home Toprol XL Chronic Medical Conditions HTN/HLD: hold home Losartan, Rosuvastatin and Aspirin Depression/anxiety: hold home Sertraline Diabetic Neuropathy: hold home Gabapentin Hypothyroidism: hold home Synthroid FEN/GI: NPO DVT Prophylaxis: Heparin drip Code Status: Full Disposition: ICU (2) Pneumonia: (3) Atrial fibrillation with rapid ventricular response: (4) Sepsis: (5) Hypokalemia: (6) BERE (acute kidney injury): (7) Hypothyroidism: (8) Hypertension: (9) Diabetes: (10) Elevated troponin: (11) Hypocalcemia: (12) Lactic acidosis: (13) Anxiety: Admission and Anticipated Discharge Date Admission Date: August 14, 2021 Supervising Physician Co-Signing Physician Notes I personally examined the patient and verified all linares points of history and exam, discussed case, and agree with decision making with Dr Newton holloway HPI or ISABEL obtainable. on ventilator,post op. d/w ICU - management greatly appreciated, and surgery input greatly appreciated vitals noted, on vent. chest rise/fall noted. otherwise as above sepsis/septic shock/ARDS/abdominal ischemia -initially related to pneumonia. continue current management - otherwise as above Subjective Patient seen at bedside, obtunded mechanically ventilated with intubation. Patient transitioned from prone to supine, did not tolerate well. New rigid abdomen with CT imaging indicated necrotic bowel, patient was sent for exploratory laparotomy. Patient had section of small bowel removed and stapled shut, no anastomosis made given patient instability. Review of Systems Review of Systems: Unobtainable due to cognitive status and Unobtainable due to endotracheal tube Physical Exam Constitutional: + mechanically ventilated ENMT: external ear and nose normal, oropharynx normal Neck: trachea midline, no thyromegaly Respiratory: + tachypneic Auscultation: + rhonchi Cardiovascular: Rate/Rhythm: + tachycardic Extremities: no edema Chest (Breasts): Additional Comments: Breasts erythematous mottled skin Gastrointestinal (Abdomen): mottled red distended rigid abdomen with wound vac in place Skin: + mottling Neurologic: + obtunded Results & Data Results & Data ([facility]) Vital Signs (Past 12 Hours) Vital Signs Temp Pulse Resp BP Pulse Ox Pulse Ox 08/15/21 05:51 93 08/15/21 05:45 36.4 C L 89 32 H 77 L 08/15/21 05:41 36.5 C 89 32 H 148/56 H 83 L 08/15/21 05:31 36.5 C 93 H 32 H 81/68 L 86 L 08/15/21 05:30 36.5 C 93 H 32 H 86 L 08/15/21 05:15 36.6 C 95 H 32 H 82 L 08/15/21 05:01 36.7 C 97 H 32 H 172/43 H 92 08/15/21 05:00 36.7 C 98 H 32 H 93 08/15/21 04:55 96 08/15/21 04:45 36.7 C 92 H 32 H 96 08/15/21 04:34 99 H 35 H 96 08/15/21 04:31 92 H 32 H 160/49 H 97 08/15/21 04:30 92 H 32 H 97 08/15/21 04:22 94 H 30 H 162/56 H 47 L 08/15/21 04:19 93 H 32 H 55 L 08/15/21 03:45 95 H 32 H 92 08/15/21 03:44 94 H 32 H 145/55 H 92 08/15/21 03:43 95 H 32 H 92 08/15/21 03:31 36.8 C 97 H 32 H 159/63 H 90 08/15/21 03:30 36.8 C 97 H 32 H 89 L 08/15/21 03:15 36.8 C 98 H 32 H 87 L 08/15/21 03:00 36.9 C 99 H 32 H 130/63 88 L 08/15/21 02:30 36.9 C 101 H 32 H 150/65 H 90 08/15/21 02:01 36.8 C 90 32 H 116/57 L 92 08/15/21 02:00 36.8 C 90 32 H 93 08/15/21 01:54 36.8 C 91 H 32 H 145/49 H 93 08/15/21 01:30 36.8 C 93 H 32 H 129/68 92 08/15/21 01:00 36.9 C 96 H 32 H 158/46 H 93 08/15/21 00:44 36.9 C 92 H 32 H 92 08/15/21 00:30 37.0 C 95 H 32 H 92 08/15/21 00:00 95 H 32 H 90 08/14/21 23:34 96 H 32 H 96 08/14/21 23:30 37.1 C 97 H 32 H 123/45 L 91 08/14/21 23:00 37.1 C 97 H 32 H 131/40 L 97 08/14/21 22:30 37.2 C 97 H 32 H 131/47 L 91 08/14/21 22:00 37.2 C 96 H 32 H 111/43 L 91 08/14/21 21:30 37.2 C 97 H 32 H 131/44 L 91 08/14/21 21:01 37.3 C 97 H 32 H 120/39 L 91 08/14/21 21:00 37.3 C 97 H 32 H 91 08/14/21 20:30 37.3 C 96 H 32 H 90 08/14/21 20:25 37.2 C 93 H 35 H 104/45 L 91 08/14/21 20:23 37.3 C 96 H 32 H 90 08/14/21 20:00 37.3 C 96 H 32 H 92 08/14/21 19:47 97 H 32 H 93 08/14/21 19:30 37.3 C 96 H 32 H 92 Resident Activity Tracking Resident Involvement: Resident Care Provided Care Provided: Adult Hospital Medicine (1) Diabetes Diabetes mellitus complication status: without complication Diabetes mellitus machine long goods helper insulin use: without machine long goods helper use Diabetes mellitus type: type 2 Qualified Code(s): E11.9 - Type 2 diabetes mellitus without complications (2) Hypothyroidism Hypothyroidism type: acquired Qualified Code(s): E03.9 - Hypothyroidism, unspecified (3) Sepsis Sepsis acute organ dysfunction status: unspecified Sepsis type: sepsis due to unspecified organism Qualified Code(s): A41.9 - Sepsis, unspecified organism (4) Hypertension Hypertension type: essential hypertension Qualified Code(s): I10 - Essential (primary) hypertension (5) Pneumonia Laterality: right Lung location: unspecified part of lung Pneumonia type: due to unspecified organism Qualified Code(s): J18.9 - Pneumonia, unspecified organism
--- NOTE | 2021-08-15 07:11 | CT Scan Report ---
CT OF THE CHEST WITHOUT IV CONTRAST CLINICAL HISTORY: Hypoxia. COMPARISON STUDY: Chest CT and chest radiograph August 14, 2021. TECHNIQUE: Axial images of the chest were obtained without IV contrast. Images were reviewed in the axial, sagittal, and coronal planes. IV contrast was not administered for this examination. Automat ed exposure control was utilized for the study. A dose lowering technique was utilized adhering to t he principles of ALARA. FINDINGS: The endotracheal tube is approximately 1 cm above the stef. Tip of nasogastric tube is w ithin the stomach. No pneumothorax is present. There is a trace right pleural effusion. Lungs are sub optimally assessed due to respiratory motion. Extensive right lower lobe consolidation is noted. This has slightly increased. Additional patchy airspace opacities within the lungs are present. Is suspec makenzie mild emphysema. No thoracic lymphadenopathy is present. Mild cardiomegaly is noted. There is mode rate coronary artery calcification. There is moderate atherosclerotic calcification of the thoracic a yessica. Abdomen and pelvis will be reported separately. Mild body wall edema is present. IMPRESSION: 1. Slight increase in extensive right lower lobe consolidation suggestive of pneumonia. Additional pa tchy bilateral airspace opacities are also likely infectious. 2. Trace right pleural effusion. 3. Tip of endotracheal tube proximal to 1 cm above the stef. 4. Mild cardiomegaly. Moderate coronary artery calcification. ACT 112: Negative or not required by law. Electronically signed by: Bienvenido Moreno M.D. 08/15/2021 7:10 AM
--- NOTE | 2021-08-15 07:25 | CT Scan Report ---
CT OF THE ABDOMEN AND PELVIS WITHOUT CONTRAST CLINICAL HISTORY: Abdominal distention. COMPARISON STUDY: CT of the abdomen and pelvis August 14, 2021. TECHNIQUE: Axial images of the abdomen and pelvis were obtained without IV contrast. Images were revi ewed in the axial, sagittal, and coronal planes. Automated exposure control was utilized for the jorge dy. A dose lowering technique was utilized adhering to the principles of ALARA. FINDINGS: Extensive right lower lobe consolidation is detected on the chest CT which will be reported separately. There is trace gas within the left hepatic lobe. This was not present on CT of August 14, 2021. Therefore, this could reflect portal venous gas or pneumobilia. No pneumatosis or mesenteric ve nous gas is noted. However, there is mesenteric stranding associated with multiple small bowel loops. Small bowel ischemia is within the differential. There is trace ascites. There is no evidence for a bowel obstruction. Evaluation of the abdomen and pelvis is suboptimal as unenhanced exam. Hepatic claude atosis with suspected cirrhosis is noted. There is no biliary ductal dilatation status post cholecyst ectomy. Unenhanced images of the spleen, adrenal glands and pancreas are unremarkable. There is a lef t renal cyst. Of note, there are persistent bilateral nephrograms from prior contrast administration. Nassar balloon within the bladder is noted. Small amount of contrast within the bladder is noted. No abscess is present within the abdomen or pelvis. IMPRESSION: 1. Extensive right lower lobe consolidation suggestive of pneumonia. 2. Interval development of trace gas within the left hepatic lobe. This could reflect portal venous g as or pneumobilia. No definite pneumatosis however mesenteric stranding associated with multiple smal l bowel loops. Therefore, small bowel ischemia is within the differential. 3. No bowel obstruction. 4. Persistent bilateral nephrograms. This is nonspecific and could be due to systemic hypertension o r acute tubular necrosis. 5. Trace ascites. ACT 112: Negative or not required by law. Electronically signed by: Bienvenido Moreno M.D. 08/15/2021 7:23 AM
--- NOTE | 2021-08-15 07:27 | CT Scan Report ---
CT OF THE HEAD WITHOUT CONTRAST CLINICAL HISTORY: change in mental status COMPARISON STUDY: Head CT August 14, 2021. CT DOSE: 614.27 mGy.cm TECHNIQUE: Helical axial images of the head were obtained without IV contrast. Automated exposure con trol was utilized for the study. A dose lowering technique was utilized adhering to the principles o f ALARA. FINDINGS: No acute intracranial hemorrhage, midline shift or mass effect is present. The ventricular system is unremarkable. The basal cisterns are patent. No extra-axial collections are present. There are no findings to suggest acute dural sinus thrombosis or acute territorial infarct. No significant calvarial abnormalities are present. There is mild sinus mucosal thickening. Trace fluid within the r ight mastoid air cells. IMPRESSION: No acute intracranial findings. ACT 112: Negative or not required by law. Electronically signed by: Bienvenido Moreno M.D. 08/15/2021 7:25 AM
[2021-08-15] MEDS ORDERED: VANCOMYCIN HCL 1,000 MG in SODIUM CHLORIDE 0.9% 250 ML IV ONE ×2 (07:30→22:00)
[2021-08-15] MEDS: MIDAZOLAM HCL 125 MG/250 ML BAG IV SCH (08:00)
[2021-08-15] MEDS: fentaNYL citrate 2,500 MCG/250 ML BAG IV SCH (08:00)
[2021-08-15] MEDS: ALBUMIN 5% 250 ML IV SCH ×2 (08:30→08:45)
[2021-08-15] MEDS: FAMOTIDINE 20 MG in SYRINGE 3 ML IV SCH (08:41)
--- NOTE | 2021-08-15 08:44 | Surgery Consultation ---
Date of Consultation August 15, 2021 Assessment & Plan (1) Septic shock: Patient with severe sepsis, shock severe metabolic acidosis Diffuse mottling of her body Severely distended abdomen with possible compartment syndrome Could be contributing to renal insufficiency and acute renal failure Likely profound hypotension with possible severe small bowel ischemia We cannot rule out ischemia unless we were to operate She is extremely high risk and may arrest in the operating room I believe she will certainly if we do not operate however I do feel there is extremely high Mortality postop no matter what we do We would likely have to leave her abdomen open with a wound VAC device I am currently trying to contact the family History of Present Illness Attending Physician: Antonio Vasquez, DO History of Present Illness Asked to see this 65-year-old female in the intensive care unit for possible small bowel ischemia She was admitted to the emergency room with nausea vomiting cough weakness and severe sepsis She required intubation and because of her hypotension vasopressors Her CT of the chest did show right lower lobe infiltrate with no evidence of PE Her CT of the abdomen did not show any significant abnormalities She does have a history of A. fib on Eliquis hypertension and smoking Currently she is profoundly septic, intubated on multiple vasopressors She is growing out gram-positive's from her blood She has an extremely high lactic acid with severe metabolic acidosis and some acute renal insufficiency Allergies Allergy/AdvReac Type Severity Reaction Status Date / Time ciprofloxacin [From Cipro] Allergy Unknown Unverified 08/14/21 00:43 Penicillins Allergy Unknown Unverified 08/14/21 00:43 Sulfa (Sulfonamide Allergy Unknown Unverified 08/14/21 00:43 Antibiotics) PAIN MEDICATIONS Allergy Unknown Uncoded 08/14/21 00:43 Home Medications Medication Instructions Recorded Confirmed Type aspirin 81 mg tablet,delayed 81 mg PO DAILY 01/12/19 08/14/21 History release (Aspirin Low Dose) gabapentin 300 mg capsule 300 mg PO BID 01/12/19 08/14/21 History losartan 50 mg tablet 50 mg PO QPM 01/12/19 08/14/21 History sertraline 100 mg tablet (Zoloft) 100 mg PO BID 01/12/19 08/14/21 History rosuvastatin 40 mg tablet (Crestor) 40 mg PO DAILY #30 tab 01/14/19 08/14/21 Rx apixaban 5 mg tablet (Eliquis) 5 mg PO BID #60 tab 04/08/20 08/14/21 Rx metoprolol succinate 50 mg 50 mg PO DAILY #30 tab 10/16/20 08/14/21 Rx tablet,extended release 24 hr levothyroxine 75 mcg tablet 75 mcg PO DAILYBB 08/14/21 08/14/21 History Patient History Medical History (Updated 08/14/21 @ 04:29 by FIDELINA Bhatti) Anxiety Depression Diabetes History of cervical cancer Hypertension Hypothyroidism Small bowel obstruction Patient had surgery for this 2018 Tobacco abuse Surgical History H/O hernia repair Patient has mesh in place H/O lumpectomy History of cholecystectomy History of hysterectomy Family History Mother Stroke Denies family history of Ovarian cancer Prostate cancer Breast cancer Lung cancer Colorectal cancer Social History Smoking Status: Current every day smoker Cigarettes Per Day: 40; Do You Dip or Chew Tobacco: No; Preferred Language: German Communication Ability: Effective Communication Ability Comment: Patient intubated and sedated at time of admission Rock Crusher Operator Required: No Beliefs That Will Affect Care: None Current Living Situation: Other Current Living Situation Comment: Unknown; patient intubated and sedated at time of admission Feels Safe at Home: Yes Assistive Devices: Oxygen - Continuous Review of Systems Review of Systems: All systems reviewed & are unremarkable except as noted in Subjective Physical Exam Physical Exam: Patient currently intubated heavily sedated Severe diffuse mottling throughout her body including trunk and extremities Severely distended abdomen-difficult to assess tenderness as she is sedated Severe mottling Constitutional: + acute distress and + ill appearing Eyes: + anicteric sclerae Respiratory: + respiratory distress and + labored breathing Intubated Cardiovascular: Tachycardic Skin: Mottling/severe Neurologic: + obtunded Results & Data ([facility]) Vital Signs (Past 12 Hours) Vital Signs Temp Pulse Resp BP Pulse Ox Pulse Ox 08/15/21 07:25 88 32 H 97 08/15/21 05:51 93 08/15/21 05:45 36.4 C L 89 32 H 77 L 08/15/21 05:41 36.5 C 89 32 H 148/56 H 83 L 08/15/21 05:31 36.5 C 93 H 32 H 81/68 L 86 L 08/15/21 05:30 36.5 C 93 H 32 H 86 L 08/15/21 05:15 36.6 C 95 H 32 H 82 L 08/15/21 05:01 36.7 C 97 H 32 H 172/43 H 92 08/15/21 05:00 36.7 C 98 H 32 H 93 08/15/21 04:55 96 08/15/21 04:45 36.7 C 92 H 32 H 96 08/15/21 04:34 99 H 35 H 96 08/15/21 04:31 92 H 32 H 160/49 H 97 08/15/21 04:30 92 H 32 H 97 08/15/21 04:22 94 H 30 H 162/56 H 47 L 08/15/21 04:19 93 H 32 H 55 L 08/15/21 03:45 95 H 32 H 92 08/15/21 03:44 94 H 32 H 145/55 H 92 08/15/21 03:43 95 H 32 H 92 08/15/21 03:31 36.8 C 97 H 32 H 159/63 H 90 08/15/21 03:30 36.8 C 97 H 32 H 89 L 08/15/21 03:15 36.8 C 98 H 32 H 87 L 08/15/21 03:00 36.9 C 99 H 32 H 130/63 88 L 08/15/21 02:30 36.9 C 101 H 32 H 150/65 H 90 08/15/21 02:01 36.8 C 90 32 H 116/57 L 92 08/15/21 02:00 36.8 C 90 32 H 93 08/15/21 01:54 36.8 C 91 H 32 H 145/49 H 93 08/15/21 01:30 36.8 C 93 H 32 H 129/68 92 08/15/21 01:00 36.9 C 96 H 32 H 158/46 H 93 08/15/21 00:44 36.9 C 92 H 32 H 92 08/15/21 00:30 37.0 C 95 H 32 H 92 08/15/21 00:00 95 H 32 H 90 08/14/21 23:34 96 H 32 H 96 08/14/21 23:30 37.1 C 97 H 32 H 123/45 L 91 08/14/21 23:00 37.1 C 97 H 32 H 131/40 L 97 08/14/21 22:30 37.2 C 97 H 32 H 131/47 L 91 08/14/21 22:00 37.2 C 96 H 32 H 111/43 L 91 08/14/21 21:30 37.2 C 97 H 32 H 131/44 L 91 08/14/21 21:01 37.3 C 97 H 32 H 120/39 L 91 08/14/21 21:00 37.3 C 97 H 32 H 91 Laboratory Results I did review her laboratories Diagnostic Findings I did review her imaging PG Care Time/CCT Total # of Minutes Spent Total Time Spent with Patient: Total time spent is greater than 50% in coordination of care (as documented) at patient's floor/unit and/or counseling patient: Coding Level of Care Code 98701 Initial Inpt Care Lvl 3 Diagnoses Septic shock A41.9; R65.21
--- NOTE | 2021-08-15 08:49 | XRay Report ---
XR chest 1V portable HISTORY: Respiratory failure. Follow-up. COMPARISON: Chest 08/14/2021. FINDINGS: Endotracheal tube terminates approximately 15 mm from the stef. Nasogastric tube terminat es below the diaphragm. The tip is not included on this study. No pneumothorax. The heart is normal i n size. Trace right pleural effusion and right lower lobe airspace opacities persist. There is mild d iffuse interstitial thickening, unchanged. IMPRESSION: 1. Satisfactory support line placement. 2. Right lower lobe airspace opacity consistent with a pneumonia. This is similar to the prior study. ACT 112: Negative or not required by law. Electronically signed by: Andres Staton M.D. 08/15/2021 8:48 AM
--- NOTE | 2021-08-15 09:08 | Anesthesiology Consultation ---
Date of Service August 15, 2021 Assessment & Plan Chart Review Chart Review: Acceptable Risk for Surgery (extremely high risk.) and Patient NOT seen in Pre Admission Testing Consults Requested none ASA [id number] Proposed Anesthesia Anesthesia Type: General Risk / Benefits Reviewed With: PT / POA / Parent / Guardian, Accepts Plan and Informed Consent Obtained History Surgery Operation Date: 08/15/21 09:00 Proposed Procedures p Exploratory Laparotomy for Ischemic Bowel - Eduardo Nelson MD, FACS Height/Weight Height: 5 ft Weight: 67.1 kg Allergies Allergy/AdvReac Type Severity Reaction Status Date / Time ciprofloxacin [From Cipro] Allergy Unknown Unverified 08/14/21 00:43 Penicillins Allergy Unknown Unverified 08/14/21 00:43 Sulfa (Sulfonamide Allergy Unknown Unverified 08/14/21 00:43 Antibiotics) PAIN MEDICATIONS Allergy Unknown Uncoded 08/14/21 00:43 Medications Home Medications Medication Instructions Recorded Confirmed Last Taken aspirin 81 mg tablet,delayed 81 mg PO DAILY 01/12/19 08/14/21 01/12/19 release (Aspirin Low Dose) gabapentin 300 mg capsule 300 mg PO BID 01/12/19 08/14/21 01/12/19 losartan 50 mg tablet 50 mg PO QPM 01/12/19 08/14/21 01/12/19 sertraline 100 mg tablet (Zoloft) 100 mg PO BID 01/12/19 08/14/21 01/12/19 rosuvastatin 40 mg tablet (Crestor) 40 mg PO DAILY #30 tab 01/14/19 08/14/21 Unknown apixaban 5 mg tablet (Eliquis) 5 mg PO BID #60 tab 04/08/20 08/14/21 Unknown metoprolol succinate 50 mg 50 mg PO DAILY #30 tab 10/16/20 08/14/21 Unknown tablet,extended release 24 hr levothyroxine 75 mcg tablet 75 mcg PO DAILYBB 08/14/21 08/14/21 Unknown Active Medications Generic Name Dose Route Start Last Admin Trade Name Freq PRN Reason Stop Dose Admin Acetaminophen 500 mg 08/14/21 09:58 08/14/21 10:42 Acetaminophen Susp 500 Mg/15.6 Ml Udp PO 09/13/21 09:57 500 mg Q6H PRN Administration Fever Sodium Bicarbonate 150 meq/ 1,150 mls @ 150 mls/hr 08/14/21 02:44 08/15/21 06:06 Dextrose IV 09/13/21 02:43 150 mls/hr .Q7H40M NII Administration Heparin Sodium/Dextrose 25,000 units in 500 mls @ 0 mls/hr 08/14/21 04:07 08/15/21 08:25 Heparin Sodium/Dextrose IV 09/13/21 04:06 0 units/hr .Q0M NII 0 mls/hr Titration Protocol 0 UNITS/HR Norepinephrine Bitartrate 8 mg in 508 mls @ 56.54 mls/hr 08/14/21 04:30 08/15/21 08:00 Levophed/D5w IV 09/13/21 04:29 Not Given .Q9H NII Protocol 0.2 MCG/KG/MIN Midazolam HCl 125 mg in 250 mls @ 6 mls/hr 08/14/21 04:30 08/15/21 08:00 Versed IV 09/13/21 04:29 Not Given .[id number] NII Protocol 3 MG/HR Fentanyl Citrate 2,500 mcg in 250 mls @ 7.5 mls/hr 08/14/21 04:30 08/15/21 08:00 Fentanyl Citrate IV 08/28/21 04:29 Not Given .[id number] NII Protocol 75 MCG/HR Cefepime HCl 2,000 mg/ Syringe 20 mls @ 5 mls/min 08/15/21 02:00 08/15/21 02:23 IV 08/22/21 01:59 5 mls/min Q24H NII Administration Protocol Phenylephrine HCl 20 mg/ 502 mls @ 40.662 mls/hr 08/14/21 08:15 08/15/21 06:59 Dextrose IV 09/13/21 08:14 0.5 mcg/kg/min .[id number] NII 40.7 mls/hr Titration Protocol 0.5 MCG/KG/MIN Vasopressin 20 units/ Sodium 101 mls @ 12.12 mls/hr 08/14/21 08:15 08/15/21 08:57 Chloride IV 09/13/21 08:14 0.04 unit/min .Q8H20M NII 12.1 mls/hr Administration 0.04 UNIT/MIN Famotidine 20 mg/ Syringe 5 mls @ 2.5 mls/min 08/14/21 11:00 08/15/21 08:41 IV 09/13/21 10:59 2.5 mls/min DAILY NII Administration Hydrocortisone Sodium 1 mls @ 4 mls/min 08/14/21 19:00 08/15/21 06:03 Succinate 50 mg/ Syringe IV 09/13/21 18:59 4 mls/min Q6H NII Administration Albumin Human 250 mls @ 500 mls/hr 08/15/21 08:30 08/15/21 08:45 Albumin 5% IV 08/15/21 09:29 500 mls/hr Q30M NII Administration Past Medical History Medical History (Updated 08/14/21 @ 04:29 by FIDELINA Bhatti) Anxiety Depression Diabetes History of cervical cancer Hypertension Hypothyroidism Small bowel obstruction Patient had surgery for this 2018 Tobacco abuse Exercise / Class Metabolic Activity II 4-5 Yardwork/Stairs/Walk up hill (at baseline, lives at home) Past Family History Family History Mother Stroke Denies family history of Ovarian cancer Prostate cancer Breast cancer Lung cancer Colorectal cancer Past Surgical History Surgical History H/O hernia repair Patient has mesh in place H/O lumpectomy History of cholecystectomy History of hysterectomy Past Anesthesia History No Hx of Anesthesia Complications and No Family Hx of Anesthesia Complications History of PONV No Hx of PONV and No Hx of Motion Sickness Social History Smoking Status: Current every day smoker tobacco type: cigarettes Smoking cigarettes per day: 40 Do You Dip or Chew Tobacco: No Physical Exam Vital Signs Last Vital Signs Temp 36.4 C L 08/15/21 05:45 Pulse 88 08/15/21 07:25 Resp 32 H 08/15/21 07:25 BP 148/56 H 08/15/21 05:41 Pulse Ox 97 08/15/21 07:25 Constitutional + mechanically ventilated ENMT Mouth: no dentition abnormality Thyromental Distance: > or= 3.5 Finger Breadths Mallampati Class: Other (intubated) Neck normal visual inspection Respiratory normal respiratory effort Auscultation: lungs clear to auscultation bilaterally Cardiovascular Rate/Rhythm: regular rate and regular rhythm on norepinephrine, vasopressin, and phenylephrine drips Chest (Breasts) Chest: + vascular access device or port (right radial a line. left femoral 3 leumen) Skin mottled extremities Psychiatric sedated. reactive pupils. Testing Laboratory Results 08/15/21 02:50 08/15/21 02:50 PT 23.7 Seconds (9.0-12.0) H 08/15/21 02:02 INR 2.3 (0.9-1.1) H 08/15/21 02:02 APTT 95.4 Seconds (21.0-31.0) H* 08/15/21 04:53 Urine Color [place] 08/14/21 01:14 Urine Appearance Clear (Clear) 08/14/21 01:14 Urine pH 5.0 (4.5-7.5) 08/14/21 01:14 Ur Specific [place] 1.017 (1.000-1.030) 08/14/21 01:14 Urine Protein 2+ (Negative) H 08/14/21 01:14 Urine Glucose (UA) Negative (Negative) 08/14/21 01:14 Urine Ketones Trace (Negative) H 08/14/21 01:14 Urine Nitrite Negative (Negative) 08/14/21 01:14 Ur Leukocyte Esterase Negative (Negative) 08/14/21 01:14 Urine WBC (Auto) 5-10 /hpf (0-5) H 08/14/21 01:14 Urine RBC (Auto) 0-4 /hpf (0-4) 08/14/21 01:14 U Hyaline Cast (Auto) 10-30 /lpf (0-5) H 08/14/21 01:14 U Epithel Cells (Auto) 20-30 /lpf (0-5) H 08/14/21 01:14 Urine Bacteria (Auto) 1+ (Negative) H 08/14/21 01:14 08/14/21 01:25 Aerobic Blood Culture - Preliminary Blood No growth in Aerobic bottle after 24 hours. Anaerobic Blood Culture - Preliminary Alpha strep. not enterococcus 08/14/21 01:55 Aerobic Blood Culture - Preliminary Blood No growth in Aerobic bottle after 24 hours. Anaerobic Blood Culture - Preliminary No growth in Anaerobic bottle after 24 hours. 08/15/21 07:46 POC Glucose (other) 216 H Echocardiogram Date: 08/14/21 EF: 70+ LV Function: hyperdynam
[2021-08-15] MEDS ORDERED: MIDAZOLAM HCL 1 MG/ML 2ML VIAL ONE (09:13)
[2021-08-15] MEDS ORDERED: fentaNYL citrate 100 MCG/2 ML VIAL ONE (09:13)
[2021-08-15] MEDS ORDERED: PROTAMINE SULFATE 10 MG in DEXTROSE 5% 50 ML IV ONE (09:15)
[2021-08-15] MEDS ORDERED: PROTAMINE SULFATE IV ONE (09:15)
[2021-08-15] MEDS ORDERED: DEXTROSE 5% IV ONE (09:15)
[2021-08-15] MEDS: HEPARIN SODIUM/DEXTROSE 25,000 UNITS/500 ML BAG IV SCH ×2 (09:16→15:22)
[2021-08-15] MEDS ORDERED: SODIUM CHLORIDE 0.9% 250 ML IV PRN (09:17)
[2021-08-15] MEDS ORDERED: CALCIUM CHLORIDE 10% 10 ML SYR IV ONE ×2 (09:19→15:16)
--- NOTE | 2021-08-15 09:25 | Critical Care Progress Note ---
Date of Service August 15, 2021 Assessment & Plan (1) Septic shock: Plan: Reason Critically Ill: 65-year-old female presents to the ICU with acute hypoxic respiratory failure requiring mechanical ventilation and septic shock requiring vasopressor support. Neuro - Sedation: Fentanyl/Versed. CTH without acute pathology. Cardiac - Shockpatient with profound shock requiring 3 different vasopressors. She has a rising lactic acidosis likely related to mesenteric gut ischemia. Heparin on hold and reversed as there are plans to take her back to the OR for an exploratory laparotomy. Respiratory - Severe hypoxic respiratory failure with ARDS. Continue lung protective ventilation strategy. Minimize PEEP due to hypotension. She has a dense right lower lobe consolidation likely from aspiration. GI - CT abdomen/pelvis performed last night revealed extensive right lower lobe consolidation and interval trace gas within the left hepatic lobe. Enteric stranding was noted within multiple small bowel loops. Concern for small bowel ischemia. General surgery has evaluated the patient and plans to take her back to the OR for exploratory laparotomy. She likely has intra-abdominal hypertension. Her mortality at this point is extremely high. Family is aware. RENAL/LYTES - He has worsening BERE likely secondary to intra-abdominal hypertension and ischemic ATN. She has persistent lactic acidosis. Currently receiving bicarb infusion. We will give a dose of albumin, 500 mL. Nephro on board. Foleystrict I's and ENDO - ICU hyperglycemic protocol Hypothyroid continue Synthroid Continue stress dose steroids. HEME - H&H stable, monitor routine CBCs ID - Shock likely origin of aspiration pneumonia and now gut ischemia. Continue broad-spectrum antibiotics. Blood cultures growing alpha strep possible Streptococcus pneumonia. Will initiate IV flagyl given abdominal process. LINES/IV ACCESS - Right femoral CVL, left radial A-line, peripheral IVs, OG tube, Nassar, ET tube DVT PROPHYLAXIS - SCDs, heparin drip reversed with protamine sulfate given that she is going to the OR. Care coordinated with the anesthesiologist, general surgeon, pharmacist, nurse and respiratory therapist. Family updated extensively. I have personally spent 63 minutes of critical care time in the direct management of this patient. This is a life/limb threatening event. This includes time spent evaluating patient, direct bedside care, chart review, placing orders, interpretation of diagnostic studies, discussion with consultants, patient, and family members, as well as other required patient management activities. This time is exclusive of all separately billable procedures, and teaching time and separate from and in addition to any other critical care service time. Thank you for allowing us to participate in the care of this patient. Please r efer to my attending physician's documentation for any further recommendations. (2) Anxiety: (3) Lactic acidosis: (4) Hypocalcemia: (5) Elevated troponin: (6) Acute respiratory failure with hypoxia and hypercapnia: (7) Pneumonia: (8) Atrial fibrillation with rapid ventricular response: (9) Sepsis: (10) BERE (acute kidney injury): (11) Anticoagulant long-term use: (12) Hypothyroidism: (13) Hypertension: (14) Mesenteric ischemia: Admission and Anticipated Discharge Date Admission Date: August 14, 2021 Subjective Patient seen and examined. She remains in profound septic shock requiring 3 different vasopressors and high vent support. Unresponsive to commands although she is on Versed and fentanyl. Review of Systems Review of Systems: Unobtainable due to cognitive status and Unobtainable due to endotracheal tube Physical Exam Physical Exam: Constitutional: Patient currently intubated and sedated. Unresponsive to commands although on Versed and fentanyl. Eyes: Sluggishly reactive pupils. Ears nose, mouth and throat: Endotracheal tube is in place. Neck: Trachea is midline. Visual inspection is normal. Respiratory: Breath sounds bilaterally on the ventilator with diminishment right lung base. Cardiovascular: Regular rate and rhythm. No murmurs. No edema. Gastrointestinal: Tense abdomen with diminished bowel sounds. Ischemic skin changes noted. Musculoskeletal: Unable to fully assess given her intubation status. All extremities intact. Skin: Severe mottling and purpling of her bilateral breasts, bilateral ears livedo reticularis noted in all extremities. Neurologic: Sedated Psychiatric: Unable to evaluate Results & Data Results & Data ([facility]) Vital Signs (Past 12 Hours) Vital Signs Temp Pulse Resp BP Pulse Ox Pulse Ox 08/15/21 08:00 88 08/15/21 07:25 88 32 H 97 08/15/21 05:51 93 08/15/21 05:45 36.4 C L 89 32 H 77 L 08/15/21 05:41 36.5 C 89 32 H 148/56 H 83 L 08/15/21 05:31 36.5 C 93 H 32 H 81/68 L 86 L 08/15/21 05:30 36.5 C 93 H 32 H 86 L 08/15/21 05:15 36.6 C 95 H 32 H 82 L 08/15/21 05:01 36.7 C 97 H 32 H 172/43 H 92 08/15/21 05:00 36.7 C 98 H 32 H 93 08/15/21 04:55 96 08/15/21 04:45 36.7 C 92 H 32 H 96 08/15/21 04:34 99 H 35 H 96 08/15/21 04:31 92 H 32 H 160/49 H 97 08/15/21 04:30 92 H 32 H 97 08/15/21 04:22 94 H 30 H 162/56 H 47 L 08/15/21 04:19 93 H 32 H 55 L 08/15/21 03:45 95 H 32 H 92 08/15/21 03:44 94 H 32 H 145/55 H 92 08/15/21 03:43 95 H 32 H 92 08/15/21 03:31 36.8 C 97 H 32 H 159/63 H 90 08/15/21 03:30 36.8 C 97 H 32 H 89 L 08/15/21 03:15 36.8 C 98 H 32 H 87 L 08/15/21 03:00 36.9 C 99 H 32 H 130/63 88 L 08/15/21 02:30 36.9 C 101 H 32 H 150/65 H 90 08/15/21 02:01 36.8 C 90 32 H 116/57 L 92 08/15/21 02:00 36.8 C 90 32 H 93 08/15/21 01:54 36.8 C 91 H 32 H 145/49 H 93 08/15/21 01:30 36.8 C 93 H 32 H 129/68 92 08/15/21 01:00 36.9 C 96 H 32 H 158/46 H 93 08/15/21 00:44 36.9 C 92 H 32 H 92 08/15/21 00:30 37.0 C 95 H 32 H 92 08/15/21 00:00 95 H 32 H 90 08/14/21 23:34 96 H 32 H 96 08/14/21 23:30 37.1 C 97 H 32 H 123/45 L 91 08/14/21 23:00 37.1 C 97 H 32 H 131/40 L 97 08/14/21 22:30 37.2 C 97 H 32 H 131/47 L 91 08/14/21 22:00 37.2 C 96 H 32 H 111/43 L 91 08/14/21 21:30 37.2 C 97 H 32 H 131/44 L 91 Coding Level of Care Code 03106 Prolonged Care (int'l) Diagnoses Septic shock A41.9; R65.21 Anxiety F41.9 Lactic acidosis E87.2 Hypocalcemia E83.51 Elevated troponin R77.8 Acute respiratory failure with hypoxia and hypercapnia J96.01; J96.02 Pneumonia J18.9 Laterality: right Lung location: unspecified part of lung Pneumonia type: due to unspecified organism Atrial fibrillation with rapid ventricular response I48.91 Sepsis A41.9 Sepsis acute organ dysfunction status: unspecified Sepsis type: sepsis due to unspecified organism BERE (acute kidney injury) N17.9 Anticoagulant long-term use Z79.01 Hypothyroidism E03.9 Hypothyroidism type: acquired Hypertension I10 Hypertension type: essential hypertension Mesenteric ischemia K55.9 Time Spent (min) 63 (1) Pneumonia Laterality: right Lung location: unspecified part of lung Pneumonia type: due to unspecified organism Qualified Code(s): J18.9 - Pneumonia, unspecified organism (2) Sepsis Sepsis acute organ dysfunction status: unspecified Sepsis type: sepsis due to unspecified organism Qualified Code(s): A41.9 - Sepsis, unspecified organism (3) Hypothyroidism Hypothyroidism type: acquired Qualified Code(s): E03.9 - Hypothyroidism, unspecified (4) Hypertension Hypertension type: essential hypertension Qualified Code(s): I10 - Essential (primary) hypertension
[2021-08-15] MEDS ORDERED: KETAMINE 50 MG/5 ML SYRINGE ONE (09:26)
[2021-08-15] MEDS ORDERED: NovoLIN-R INSULIN PER UNIT CHARGE ONE (09:35)
[2021-08-15] MEDS ORDERED: INSULIN HUMAN REGULAR IV ONE (09:45)
--- NOTE | 2021-08-15 11:21 | Post Operative Brief Note ---
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 small bowel suture roy ileum Drains Nassar Catheter and Gino-Corcoran Drain
[2021-08-15] MEDS ORDERED: MoRPHine SULFATE 10 MG/ML CARP/VIAL IV PRN (11:39)
[2021-08-15] MEDS ORDERED: fentaNYL citrate 100 MCG/2 ML VIAL IV PRN (11:39)
[2021-08-15] MEDS ORDERED: ePHEDrine sulfate 50 MG/ML AMP IV PRN (11:39)
[2021-08-15] MEDS ORDERED: ATROPINE SULFATE 0.1 MG/ML 10ML SYR IV PRN (11:39)
[2021-08-15 11:55] LABS: Hematocrit (blood only) 24.5 % (37-47); Hemoglobin 7.9 g/dL (12.0-16.0); Mean Corpuscular Hemoglobin 27.2 pg (25-34); Mean Corpuscular Volume 84.5 fL (80-100); Mean Platelet Volume 11.3 fL (7.4-10.4); Nucleated RBC # (auto) 0.11 K/uL (0-0); Nucleated RBC % (auto) 0.8 %; Platelet Count 109 K/uL (130-400); RDW Coefficient of Variation 17.4 % (11.5-14.5); White Blood Count 13.17 K/uL (4.8-10.8)
[2021-08-15 12:05] LABS: iSTAT Arterial Blood Gas HCO3 10 meg/L (19-24); iSTAT Arterial Blood Gas pCO2 26 mmHg (35-46); iSTAT Arterial Blood Gas pO2 117 mmHg (80-95); iSTAT Carbon Dioxide 11 mmol/L (24-31); iSTAT Hematocrit 27 % (37-47); iSTAT Hemoglobin 9.2 g/dl (12.0-16.0); iSTAT Potassium 4.3 mmol/L (3.3-5.0); iSTAT Sodium 129 mmol/L (135-144)
[2021-08-15 12:05] LABS: iSTAT Arterial Blood Gas HCO3 17 meg/L (19-24); iSTAT Arterial Blood Gas pCO2 27 mmHg (35-46); iSTAT Arterial Blood Gas pH 7.41 (7.35-7.45); iSTAT Arterial Blood Gas pO2 119 mmHg (80-95); iSTAT Carbon Dioxide 18 mmol/L (24-31); iSTAT Hematocrit 30 % (37-47); iSTAT Hemoglobin 10.2 g/dl (12.0-16.0); iSTAT Potassium 4.3 mmol/L (3.3-5.0); iSTAT Sodium 134 mmol/L (135-144)
--- NOTE | 2021-08-15 12:05 | Operative Report (OR) ---
DATE OF OPERATION: 08/15/2021. NAME OF OPERATION: Exploratory laparotomy with small bowel resection and wound VAC placement. STAFF SURGEON: Eduardo Nelson MD. UNIFORM FORCE CAPTAIN: Yovani Nobles PA-C. ANESTHESIA: General. DESCRIPTION OF PROCEDURE: The patient was brought in the operating room from the intensive care unit in critical condition, intubated and on the ventilator. She was given appropriate anesthetic and th en her abdomen was prepped and draped in the usual fashion. A long midline incision was made above a nd below the umbilicus, carrying dissection down into the abdomen encountering ischemic adipose tissu e on the way in, old bloody fluid within the abdomen and then we encountered a significant segment of infarcted small bowel with more proximal jejunum showing evidence of patchy necrosis. This involved approximately 3/4 of her small bowel, leaving a segment of jejunum proximally and then a small porti on of the ileum distally. HAYDEN stapler was used to transect the bowel and then the mesentery was trans ected using the LigaSure and also silk sutures and chromic suture. The patient was very unstable dur ing the operation with trying to ventilate her with low O2 sats. She was actually in some reverse Tr endelenburg position to enhance her ventilation. She was also hypotensive requiring multiple IV pres sors and tachycardic. I did not feel that proceeding longer with an operation, attempting any anasto mosis or stomas at this point would improve the situation in that she was in multisystem organ failur e including lungs, liver, kidney and GI tract. We left the ends of the small bowel in and then we pl aced an Abthera wound VAC in the abdomen. We did place a #19 round Gino-Corcoran drain to the right abdominal wall into the pelvis along the right colon. A wound VAC was placed and then placed to a hayes ction device. The patient was then transferred back to the intensive care unit in very critical cond ition. My resident programs assistant helped with prepping, draping, removal of the small bowel and closure, placement of the wound VAC. Job ID: [id number]
[2021-08-15 12:28] LABS: Mean Corpuscular Hgb Conc 32.2 g/dL (32-36)
[2021-08-15 12:36] LABS: Base Excess ABG -9.2 mEq/L (-9-1.8); HCO3 ABG 15 mmol/L (19-24); Oxygen Saturation ABG 94.1 % (90-95); PCO2 ABG 28 mmHg (35-46); PO2 ABG 74 mmHg (80-95); pH ABG 7.36 (7.35-7.45)
[2021-08-15] MEDS: metroNIDAZOLE 500 MG/100 ML BAG IV SCH ×2 (12:40→18:57)
[2021-08-15] MEDS ORDERED: INSULIN PROTOCOL GOAL RANGE ONE (13:09)
[2021-08-15] MEDS ORDERED: STAT IV Infusion **Titration per Protocol STA (13:09)
[2021-08-15] MEDS ORDERED: SEVERE STRESS LEVEL ONE (13:09)
[2021-08-15 13:11] LABS: Allen Test Pos (Pos)
[2021-08-15] MEDS: PANTOprazole 40 MG in SYRINGE 0 ML IV SCH (13:11)
[2021-08-15 13:21] LABS: Partial Thromboplastin Ratio 2.4
[2021-08-15 13:23] LABS: Partial Thromboplastin Time 65.4 Seconds (21.0-31.0)
[2021-08-15] MEDS ORDERED: PHARMACY GLYCEMIC MGMT CONSULT PRN (13:32)
--- NOTE | 2021-08-15 13:48 | Pharmacy Report ---
Pharmacy Vanc AUC Short Note - Date of Service August 15, 2021 - Assessment & Plan Assessment 65 year old F receiving cefepime and vancomycin (+ cefepime/flagyl) for treatment of septic shock 2nd PNA. MRSA Nasal Swab positive (on repeat order). BCx (+) alpha strep not enterococcus in 1. Urine culture NGTD. Today, SCr continues to worsen (2.16 -->2.46-->2.82). Lactate 12.1 -->13.6-->17.8. Procal >200. Patient is intubated, and requiring vasopressor support. S/p exp lap w/ extensive bowel resection/wound VAC placement in OR today. Day #2 of antimicrobial therapy. Plan Vancomycin * AUC/BRANDON is the preferred PK/PD target for vancomycin because dosing is effect peter and associated with decreased risk of nephrotoxicity compared to traditional trough targets * Dosing by levels due to rapidly changing renal function and BERE * Random vancomycin level drawn ~0250 this AM (~16hr level) was 8.3mcg/mL, subtherapeutic after a 1gm load. Of note- patient's documented weight was significantly different today compared to dosing wt for loading dose. Confirmed the level with the lab this AM (repeat of sample on a different instrument yielded same result). * Re-dosed with vancomycin 1gm (~15mg/kg) X 1 ~ 0730 this AM. Given lab values and clinical status/pressor requirements, would not anticipate she would clear vancomycin this rapidly. To ensure efficacy, will check a random level tonight ~ 2000 (~12hr level) and re-dose if remains <20mcg/mL. In addition, random marlyn riley ordered with AM labs tomorrow. Pharmacy will continue to follow and will adjust dose/frequency as necessary. Thank you.
--- NOTE | 2021-08-15 14:06 | Anesthesiology Progress Note ---
Date of Service August 15, 2021 Anesthesia Post Procedure Vital Signs Vital Signs: Temp Pulse Pulse Resp BP BP Pulse Ox 08/15/21 11:56 36.6 C 82 30 H 93 08/15/21 11:36 36 C L 80 30 H 92 08/15/21 09:45 36.2 C L 81 30 H 93 08/15/21 09:33 36.2 C L 82 18 146/54 H 95 08/15/21 09:31 36.2 C L 82 30 H 96 08/15/21 09:23 36.2 C L 82 30 H 97 08/15/21 09:15 36.2 C L 82 30 H 97 08/15/21 09:00 36.2 C L 81 30 H 96 08/15/21 08:45 36.2 C L 81 30 H 94 08/15/21 08:30 36.2 C L 80 30 H 90 08/15/21 08:15 36.2 C L 83 30 H 87 L 08/15/21 08:01 36.2 C L 84 30 H 88 L 08/15/21 08:00 36.2 C L 84 30 H 90 08/15/21 07:45 36.2 C L 88 32 H 95 08/15/21 07:30 36.2 C L 88 32 H 96 08/15/21 07:25 88 32 H 97 08/15/21 07:15 36.2 C L 88 32 H 98 08/15/21 07:02 36.2 C L 89 32 H 98 08/15/21 07:00 36.2 C L 89 32 H 98 08/15/21 06:45 36.3 C L 88 32 H 97 08/15/21 06:31 36.3 C L 91 H 32 H 134/62 98 08/15/21 06:30 36.3 C L 91 H 32 H 97 08/15/21 06:15 36.3 C L 96 H 32 H 98 08/15/21 06:01 36.3 C L 87 32 H 121/52 L 93 08/15/21 06:00 36.3 C L 85 32 H 92 08/15/21 05:51 08/15/21 05:45 36.4 C L 89 32 H 77 L 08/15/21 05:41 36.5 C 89 32 H 148/56 H 83 L 08/15/21 05:31 36.5 C 93 H 32 H 81/68 L 86 L 08/15/21 05:30 36.5 C 93 H 32 H 86 L 08/15/21 05:15 36.6 C 95 H 32 H 82 L 08/15/21 05:01 36.7 C 97 H 32 H 172/43 H 92 08/15/21 05:00 36.7 C 98 H 32 H 93 08/15/21 04:55 96 08/15/21 04:45 36.7 C 92 H 32 H 96 08/15/21 04:34 99 H 35 H 96 08/15/21 04:31 92 H 32 H 160/49 H 97 08/15/21 04:30 92 H 32 H 97 08/15/21 04:22 94 H 30 H 162/56 H 47 L 08/15/21 04:19 93 H 32 H 55 L 08/15/21 03:45 95 H 32 H 92 08/15/21 03:44 94 H 32 H 145/55 H 92 08/15/21 03:43 95 H 32 H 92 08/15/21 03:31 36.8 C 97 H 32 H 159/63 H 90 08/15/21 03:30 36.8 C 97 H 32 H 89 L 08/15/21 03:15 36.8 C 98 H 32 H 87 L 08/15/21 03:00 36.9 C 99 H 32 H 130/63 88 L 08/15/21 02:30 36.9 C 101 H 32 H 150/65 H 90 08/15/21 02:01 36.8 C 90 32 H 116/57 L 92 08/15/21 02:00 36.8 C 90 32 H 93 08/15/21 01:54 36.8 C 91 H 32 H 145/49 H 93 08/15/21 01:30 36.8 C 93 H 32 H 129/68 92 08/15/21 01:00 36.9 C 96 H 32 H 158/46 H 93 08/15/21 00:44 36.9 C 92 H 32 H 92 08/15/21 00:30 37.0 C 95 H 32 H 92 08/15/21 00:00 95 H 32 H 90 08/14/21 23:34 96 H 32 H 96 08/14/21 23:30 37.1 C 97 H 32 H 123/45 L 91 08/14/21 23:00 37.1 C 97 H 32 H 131/40 L 97 08/14/21 22:30 37.2 C 97 H 32 H 131/47 L 91 08/14/21 22:00 37.2 C 96 H 32 H 111/43 L 91 08/14/21 21:30 37.2 C 97 H 32 H 131/44 L 91 08/14/21 21:01 37.3 C 97 H 32 H 120/39 L 91 08/14/21 21:00 37.3 C 97 H 32 H 91 08/14/21 20:30 37.3 C 96 H 32 H 90 08/14/21 20:25 37.2 C 93 H 35 H 104/45 L 91 08/14/21 20:23 37.3 C 96 H 32 H 90 08/14/21 20:00 37.3 C 96 H 32 H 92 08/14/21 19:47 97 H 32 H 93 08/14/21 19:30 37.3 C 96 H 32 H 92 08/14/21 19:00 37.3 C 97 H 32 H 91 08/14/21 18:00 37.4 C 97 H 32 H 92 08/14/21 17:00 37.4 C 98 H 32 H 93 08/14/21 16:00 37.4 C 104 H 32 H 94 08/14/21 15:32 97 H 32 H 94 08/14/21 15:00 37.4 C 99 H 32 H 96 Pulse Ox 08/15/21 11:56 08/15/21 11:36 08/15/21 09:45 08/15/21 09:33 08/15/21 09:31 08/15/21 09:23 08/15/21 09:15 08/15/21 09:00 08/15/21 08:45 08/15/21 08:30 08/15/21 08:15 08/15/21 08:01 08/15/21 08:00 08/15/21 07:45 08/15/21 07:30 08/15/21 07:25 08/15/21 07:15 08/15/21 07:02 08/15/21 07:00 08/15/21 06:45 08/15/21 06:31 08/15/21 06:30 08/15/21 06:15 08/15/21 06:01 08/15/21 06:00 08/15/21 05:51 93 08/15/21 05:45 08/15/21 05:41 08/15/21 05:31 08/15/21 05:30 08/15/21 05:15 08/15/21 05:01 08/15/21 05:00 08/15/21 04:55 08/15/21 04:45 08/15/21 04:34 08/15/21 04:31 08/15/21 04:30 08/15/21 04:22 08/15/21 04:19 08/15/21 03:45 08/15/21 03:44 08/15/21 03:43 08/15/21 03:31 08/15/21 03:30 08/15/21 03:15 08/15/21 03:00 08/15/21 02:30 08/15/21 02:01 08/15/21 02:00 08/15/21 01:54 08/15/21 01:30 08/15/21 01:00 08/15/21 00:44 08/15/21 00:30 08/15/21 00:00 08/14/21 23:34 08/14/21 23:30 08/14/21 23:00 08/14/21 22:30 08/14/21 22:00 08/14/21 21:30 08/14/21 21:01 08/14/21 21:00 08/14/21 20:30 08/14/21 20:25 08/14/21 20:23 08/14/21 20:00 08/14/21 19:47 08/14/21 19:30 08/14/21 19:00 08/14/21 18:00 08/14/21 17:00 08/14/21 16:00 08/14/21 15:32 08/14/21 15:00 Pain Intensity Abdomen: Pain Intensity: 8 Transfer of Care Handoff Completed per policy Notes Mental Status: see notes below (Pt remains intubated,sedated and attached to [facility]. ventilator) Patient Amnestic to Procedure: Yes Nausea / Vomiting: adequately controlled Pain: adequately controlled Airway Patency, RR, SpO2: stable & adequate BP & HR: see Notes below (pt is septic and on multiple vasoactive agents) Hydration State: see Notes below (pt in ongoing need for fluid resuscitation) Anesthetic Complications: no major complications apparent
[2021-08-15] MEDS: INSULIN REGULAR 250 UNITS in SODIUM CHLORIDE 0.9% 247.5 ML IV SCH (14:22)
--- NOTE | 2021-08-15 14:38 | Pharmacy Report ---
Pharmacy Glycemic Short Note 2 - Date of Service August 15, 2021 - Glycemic Short BSG Results (Last 24 hours): 08/14/21 08/14/21 08/14/21 14:33 18:36 18:40 Glucose 120 H POC Glucose 137 H POC Glucose (other) 122 H 08/15/21 08/15/21 08/15/21 02:50 07:46 09:25 Glucose 154 H POC Glucose POC Glucose (other) 216 H 207 H 08/15/21 08/15/21 10:35 12:06 Glucose POC Glucose 208 H 223 H POC Glucose (other) OUTPATIENT ANTIDIABETIC REGIMEN: * N/A * HbA1C: ____ ASSESSMENT: * Patient is critically ill, admitted for acute hypoxic respiratory failure and septic shock requiring vasopressor support. History of DM2, however on no diabetes medications outpatient. A1C ordered for tomorrow w/ AM labs. * Currently intubated, receiving IV antibiotics, and pressors (norepinephrine, phenylephrine, and vasopressin) in addition to steroids (Solu-Cortef 50mg IV q6h). She is POD #0 exp lap with small bowel resection. * Initiated on an insulin infusion for hyperglycemia per ICU protocol @ 2.5units/hr given numerous acute stressors and changes. Adjustments per insulin infusion adjustment calculator. PLAN FOR INPATIENT GLYCEMIC CONTROL: * Basal insulin * Regular insulin infusion * Bolus insulin * NovoLog per insulin infusion calculator ACHS or Q6hrs while NPO * Goal Range: Low 110 mg/dL - High 180 mg/dL * Nutritional / Prandial insulin per insulin infusion calculator
[2021-08-15 14:53] LABS: BUN Creatinine Ratio 11.9 (10-20); Creatinine Clr Calc Pharmacy 17.3 ml/min; Est GFR (African American) 20.4 ml/min; Est GFR (Non-African American) 17.6 ml/min
[2021-08-15 15:07] LABS: Albumin Globulin Ratio 1.1 (0.9-2); Albumin Level 2.4 gm/dl (3.4-5.0); Bilirubin,Total 1.1 mg/dl (0.2-1.0); Globulin 2.2 gm/dl (2.5-4.0); Total Protein 4.6 gm/dl (6.0-8.3)
--- NOTE | 2021-08-15 16:27 | Billing Data ---
Date of Service August 15, 2021 Coding Level of Care Code 65302 Subseq Hosp Care Lvl 1
[2021-08-15 16:41] LABS: Hematocrit (blood only) 28.6 % (37-47); Hemoglobin 9.4 g/dL (12.0-16.0); Mean Corpuscular Hemoglobin 26.9 pg (25-34); Mean Corpuscular Hgb Conc 32.9 g/dL (32-36); Mean Corpuscular Volume 81.9 fL (80-100); Nucleated RBC # (auto) 0.09 K/uL (0-0); Nucleated RBC % (auto) 0.8 %; RDW Coefficient of Variation 17.2 % (11.5-14.5); Red Blood Count 3.49 M/uL (4.2-5.4)
[2021-08-15] MEDS: INSULIN ASPART PER UNIT SC SCH ×2 (17:31→22:25)
[2021-08-15 17:40] LABS: Basophils # (auto) 0.01 K/uL (0-0.2); Basophils % (auto) 0.1 %; Echinocytes 2+; Eosinophils # (auto) 0.01 K/uL (0-0.5); Eosinophils % (auto) 0.1 %; Immature Granulocytes # (auto) 0.04 K/uL (0.00-0.02); Immature Granulocytes % (auto) 0.4 %; Lymphocytes # (auto) 0.74 K/uL (1.2-3.4); Lymphocytes % (auto) 6.9 %; Mean Platelet Volume 10.9 fL (7.4-10.4); Monocytes # (auto) 0.85 K/uL (0.11-0.59); Monocytes % (auto) 7.9 %; Neutrophils # (auto) 9.05 K/uL (1.4-6.5); Neutrophils % (auto) 84.6 %; Platelet Count 98 K/uL (130-400); Platelet Estimate Decreased (Normal); Polychromasia 1+
[2021-08-15 17:45] LABS: Hepatitis B Surf Ag Rflx Conf Neg (Neg)
[2021-08-15 18:14] LABS: Hepatitis C IgG 13Yrs+Old_Rflx Neg (Neg)
[2021-08-16] MEDS: HYDROCORTISONE SOD 50 MG in SYRINGE 0 ML IV SCH ×4 (00:21→22:12)
[2021-08-16 00:51] LABS: Base Excess ABG 4.9 mEq/L (-9-1.8); HCO3 ABG 27 mmol/L (19-24); Oxygen Saturation ABG 95.4 % (90-95); PCO2 ABG 31 mmHg (35-46); PO2 ABG 73 mmHg (80-95)
[2021-08-16 00:55] LABS: Allen Test Pos (Pos)
[2021-08-16 00:57] LABS: pH ABG 7.56 (7.35-7.45)
[2021-08-16] MEDS: metroNIDAZOLE 500 MG/100 ML BAG IV SCH ×2 (01:08→09:09)
[2021-08-16] MEDS: CEFEPIME 2,000 MG in SYRINGE 0 ML IV SCH (01:08)
[2021-08-16] MEDS ORDERED: NORMOSOL-R 1,000 ML IV SCH (01:15)
[2021-08-16 04:19] LABS: iSTAT Allen Test Pass; iSTAT Art Bld Gas pCO2 Correct 28 mmHg (35-46); iSTAT Art Bld Gas pH Corrected 7.622 (7.35-7.45); iSTAT Arterial Blood Gas HCO3 29 meg/L (19-24); iSTAT Arterial Blood Gas pCO2 27 mmHg (35-46); iSTAT Arterial Blood Gas pH 7.64 (7.35-7.45); iSTAT Arterial Blood Gas pO2 60 mmHg (80-95); iSTAT Arterial Blood Gas pO2 C 65; iSTAT Carbon Dioxide 30 mmol/L (24-31); iSTAT FiO2 40 %; iSTAT Hematocrit 28 % (37-47); iSTAT Hemoglobin 9.5 g/dl (12.0-16.0); iSTAT Potassium 3.3 mmol/L (3.3-5.0); iSTAT Site Art Line; iSTAT Sodium 133 mmol/L (135-144)
[2021-08-16 04:44] LABS: Mean Corpuscular Hgb Conc 34.6 g/dL (32-36); Nucleated RBC # (auto) 0.33 K/uL (0-0); Nucleated RBC % (auto) 3.7 %
[2021-08-16 04:51] LABS: Prothrombin Time 20.9 Seconds (9.0-12.0)
[2021-08-16 05:22] LABS: Albumin Level 2.4 gm/dl (3.4-5.0); Bilirubin Direct 0.5 mg/dl (0-0.2); Bilirubin,Total 1.2 mg/dl (0.2-1.0); Calcium 5.6 mg/dl (8.5-10.1); Creatinine Clr Calc Pharmacy 16.8 ml/min; Est GFR (African American) 19.6 ml/min; Est GFR (Non-African American) 16.9 ml/min; Hematocrit (blood only) 26.6 % (37-47); Hemoglobin 9.2 g/dL (12.0-16.0); Magnesium 1.9 mg/dl (1.7-2.4); Mean Corpuscular Hemoglobin 27.2 pg (25-34); Mean Corpuscular Volume 78.7 fL (80-100); Phosphorus 4.8 mg/dl (2.5-4.9); Potassium 3.6 mmol/L (3.5-5.1); RDW Coefficient of Variation 16.9 % (11.5-14.5); RDW Standard Deviation 48.8 fL (36.4-46.3); Red Blood Count 3.38 M/uL (4.2-5.4); Total Protein 4.9 gm/dl (6.0-8.3); White Blood Count 8.91 K/uL (4.8-10.8)
[2021-08-16 06:00] LABS: Mean Platelet Volume 11.4 fL (7.4-10.4); Platelet Count 90 K/uL (130-400)
[2021-08-16] MEDS ORDERED: CALCIUM CHLORIDE 10% 1,000 MG in DEXTROSE 5% 50 ML IV STA (06:00)
[2021-08-16 06:02] LABS: Basophils # (auto) 0.01 K/uL (0-0.2); Basophils % (auto) 0.1 %; Echinocytes 1+; Immature Granulocytes # (auto) 0.11 K/uL (0.00-0.02); Immature Granulocytes % (auto) 1.2 %; Lymphocytes # (auto) 0.87 K/uL (1.2-3.4); Lymphocytes % (auto) 9.8 %; Monocytes # (auto) 1.08 K/uL (0.11-0.59); Monocytes % (auto) 12.1 %; Neutrophils # (auto) 6.84 K/uL (1.4-6.5); Neutrophils % (auto) 76.8 %; Ovalocytes 1+; Platelet Estimate Decreased (Normal)
[2021-08-16] MEDS: fentaNYL citrate 2,500 MCG/250 ML BAG IV SCH (06:38)
--- NOTE | 2021-08-16 06:40 | Surgery Progress Note ---
Date of Service August 16, 2021 Assessment & Plan (1) S/P small bowel resection: Plan: Patient with significant segment of small bowel infarction Status post small bowel resection She has a small portion of jejunum and ileum remaining- She will require additional surgery at some point in the near future This may entail jejunostomy and possible mucous fistula Her vital signs are more stable-she is less acidotic Less mottled Improved urine output Wound VAC in place No changes in management from a surgical standpoint-no plans for surgery in the next 48 hours if possible Continue IV antibiotics as per the ICU team Leave NG tube and BOOKER drain Admission and Anticipated Discharge Date Admission Date: August 14, 2021 Results & Data ([facility]) Vital Signs (Past 12 Hours) Vital Signs Temp Pulse Resp BP Pulse Ox Pulse Ox 08/16/21 05:00 95 08/16/21 04:00 107/50 L 08/16/21 03:05 93 H 28 H 92 08/16/21 00:00 37.4 C 88 23 142/55 H 92 08/15/21 23:00 37.2 C 88 23 93 08/15/21 22:35 87 26 H 94 08/15/21 22:00 37.0 C 86 26 H 93 08/15/21 21:00 36.8 C 86 26 H 92 08/15/21 20:00 36.6 C 85 26 H 131/53 L 91 08/15/21 19:25 85 26 H 91 08/15/21 19:00 36.5 C 86 26 H 91 PG Care Time/CCT Total # of Minutes Spent Total Time Spent with Patient: Total time spent is greater than 50% in coordination of care (as documented) at patient's floor/unit and/or counseling patient: Coding Level of Care Code None Diagnoses S/P small bowel resection Z90.49
--- NOTE | 2021-08-16 07:02 | Hospitalist Progress Note ---
Date of Service August 16, 2021 Assessment & Plan (1) Acute respiratory failure with hypoxia and hypercapnia: Plan: Maite Mcclellan is a 65yo female with PMHx significant for a-fib (on Eliquis and Toprol), h/o cervical cancer, T2DM (A1c 5.8 in 12/2019), Hypothyroidism, and HLD who presented to [facility] ED on 08/14 for fatigue, weakness, malaise, productive cough, nausea, NB/NB vomiting several times and inability to tolerate PO for 1 day. Found to be septic with severe lactic acidosis and resultant acute respiratory failure, requiring intubation in the ED. Acute Abdomen -CT abd/pelvis: Interval development of trace gas within the left hepatic lobe. This could reflect portal venous gas or pneumobilia. No definite pneumatosis however mesenteric stranding associated with multiple small bowel loops. Therefore, small bowel ischemia is within the differential. -patient went for ex lap with surgery, removed large section of necrotic small bowel, wound vac in place, POD1 -mortality risk high, family is aware Sepsis with Septic Shock; RLL Pneumonia Respiratory failure likely primarily due to severe lactic acidosis in setting of sepsis due to RLL PNA. Patient decompensated quickly which was likely due to a- fib with RVR in addition to possible aspiration. Intubated/sedated in ED. Admit to ICU. - lactate 11.3 --> 9.3 --> 20.3-->12.2 - procalcitonin 127.86 --> >200 - WBC 10.7-->8.91 - imaging with RLL PNA CTA negative for PE - received Cefepime x1 in the ED, will continue with Cefepime (renal dosing), metronizadole - MRSA nares positive, added vancomycin - s/p 2L NSS boluses in ED, will continue with Bicarb - blood cx - alpha strep, not enterococcus - trend lactate, trend CBC in AM - on 3 pressors - patient previously proned without improvement, returned to supine position - after abd ex lap, able to wean down pressors and FiO2 down from 100% to 80% - management per critical care, appreciate recommendations Acute Hypoxic Hypercapnic Respiratory Failure -2/2 to RLL PNA, sepsis -Intubated with mechanical ventilation, sedated on versed fentanyl -trend ABGs, pulse ox monitoring -patient was proned, returned to supine position Lactic Acidosis Lactate 11.3, HCO3 10, AG 26 on admit. Due to sepsis 2/2 PNA. - ordered NaHCO3 bolus and drip -> on hold - trend CMP in AM BERE Cr 2.36, normal baseline. 2/2 to sepsis. - given IVF in ER, careful with additional fluids given pulm status -last creat 2.69 -davidson in place DM -pharmacy consulted, per their recs Electrolyte Abnormalities - K 2.9 --> 4.0 - Phos 6.6, iCa 1.11. Likely all 2/2 sepsis with severe lactic acidosis. - continue to trend - suspect improvement with treatment of sepsis/PNA Elevated Troponin - trended up to 0.64 --> 0.53 Atrial Fibrillation with RVR Likely 2/2 sepsis/PNA. Recent TTE in 03/2021 with EF 60-65%. - started Heparin gtt without bolus, as patient has CHADS-VASc score of 4 and will not be able to take Eliquis surgery recommends heparin drip without bolus - hold home Toprol XL Chronic Medical Conditions HTN/HLD: hold home Losartan, Rosuvastatin and Aspirin Depression/anxiety: hold home Sertraline Diabetic Neuropathy: hold home Gabapentin Hypothyroidism: hold home Synthroid FEN/GI: NPO DVT Prophylaxis: Heparin drip Code Status: Full Disposition: ICU (2) Pneumonia: (3) Atrial fibrillation with rapid ventricular response: (4) Sepsis: (5) Hypokalemia: (6) BERE (acute kidney injury): (7) Hypothyroidism: (8) Hypertension: (9) Diabetes: (10) Elevated troponin: (11) Hypocalcemia: (12) Lactic acidosis: (13) Anxiety: Admission and Anticipated Discharge Date Admission Date: August 14, 2021 Supervising Physician Co-Signing Physician Notes I personally examined the patient and verified all linares points of history and exam, discussed case, and agree with decision making with Dr Ramon no HPI or ROS obtainable. on ventilator. vitals noted, on vent. chest rise/fall noted. otherwise as above sepsis/septic shock/ARDS/abdominal ischemia -initially related to pneumonia. continue current management - appreciate ICU assistance - otherwise as above Subjective Patient seen at bedside this morning. No subjective or review of systems could be obtained due to current sedation. Review of Systems Review of Systems: Unobtainable due to cognitive status Physical Exam Constitutional: + mechanically ventilated ENMT: external ear and nose normal, oropharynx normal Neck: trachea midline, no thyromegaly Respiratory: + tachypneic Auscultation: + rhonchi Cardiovascular: Rate/Rhythm: + tachycardic and + irregularly irregular Extremities: no edema Skin: + mottling Neurologic: + obtunded Results & Data Results & Data ([facility]) Vital Signs (Past 12 Hours) Vital Signs Temp Pulse Resp BP Pulse Ox Pulse Ox 08/16/21 05:00 95 08/16/21 04:00 107/50 L 08/16/21 03:05 93 H 28 H 92 08/16/21 00:00 37.4 C 88 23 142/55 H 92 08/15/21 23:00 37.2 C 88 23 93 08/15/21 22:35 87 26 H 94 08/15/21 22:00 37.0 C 86 26 H 93 08/15/21 21:00 36.8 C 86 26 H 92 08/15/21 20:00 36.6 C 85 26 H 131/53 L 91 08/15/21 19:25 85 26 H 91 (1) Diabetes Diabetes mellitus complication status: without complication Diabetes mellitus mcfp insulin use: without mcfp use Diabetes mellitus type: type 2 Qualified Code(s): E11.9 - Type 2 diabetes mellitus without complications (2) Hypothyroidism Hypothyroidism type: acquired Qualified Code(s): E03.9 - Hypothyroidism, unspecified (3) Sepsis Sepsis acute organ dysfunction status: unspecified Sepsis type: sepsis due to unspecified organism Qualified Code(s): A41.9 - Sepsis, unspecified organism (4) Hypertension Hypertension type: essential hypertension Qualified Code(s): I10 - Essential (primary) hypertension (5) Pneumonia Laterality: right Lung location: unspecified part of lung Pneumonia type: due to unspecified organism Qualified Code(s): J18.9 - Pneumonia, unspecified organism
[2021-08-16 07:29] LABS: Estimated Average Glucose 169 mg/dl; Hemoglobin A1C 7.5 % (4.5-5.6)
[2021-08-16] MEDS ORDERED: STAT IV STA (07:59)
--- NOTE | 2021-08-16 08:00 | XRay Report ---
XR chest 1V portable CLINICAL HISTORY: Respiratory failure TECHNIQUE: Single frontal radiograph of the chest was obtained. Comparison: Comparison is made to chest one view 08/15/2021 FINDINGS: Lines and tubes are stable. The cardiomediastinal silhouette is normal. Stable right lower lung airsp michelle opacity. Trace right pleural effusion. IMPRESSION: Stable trace right pleural effusion and faint right lung base opacity. ACT 112: Negative or not required by law. Electronically signed by: Lester Kincaid M.D. 08/16/2021 7:59 AM
[2021-08-16] MEDS ORDERED: CALCIUM GLUCONATE 10% 2,000 MG in DEXTROSE 5% 50 ML IV ONE (08:15)
--- NOTE | 2021-08-16 08:55 | Critical Care Progress Note ---
Date of Service August 16, 2021 Assessment & Plan (1) Septic shock: Plan: Reason Critically Ill: 65-year-old female presents to the ICU with acute hypoxic respiratory failure requiring mechanical ventilation and septic shock requiring vasopressor support. Neuro - Sedation: Fentanyl/Versed. CTH without acute pathology. Cardiac - Shockseptic shock is improving and patient is currently on low-dose of Levophed. AF, but holding anticoagulation given thrombocytopenia. Rate controlled. Respiratory - ARDS is improving as well. She was proned on her first mechanical ventilation. Continue lung protective ventilation strategy. Minimize PEEP due to hypotension. She has a dense right lower lobe consolidation likely from aspiration. GI - Status post exploratory laparotomy 08/15/2021 with removal of large portion of small intestine due to ischemia. Wound VAC in place that she has an open abdomen. General surgery following. Patient with shock liver. Acute hepatitis panel ordered. Acetaminophen level was negative. RENAL/LYTES - BERE remains stable likely secondary to ischemic ATN and intra-abdominal hypertension. She has persistent lactic acidosis which is now starting to downtrend. Carbonate drip discontinued due to metabolic alkalosis. She also h as a respiratory alkalosis due to hyperventilation. Respiratory rate has been decreased. We will discontinue continuous fluids. Rhabdomyolysis secondary to intra-abdominal hypertension. Follow urine output closely. Replace calcium due to hypocalcemia. Foleystrict I's and ENDO - ICU hyperglycemic protocol Hypothyroid continue Synthroid We will begin to wean stress dose steroids. HEME - Hemoglobin stable, platelet count has decreased to 90,000. Will obtain peripheral smear. Anticoagulation on hold. Likely related to sepsis. Continue SCDs. ID - Shock likely origin of aspiration pneumonia and gut ischemia. Continue broad- spectrum antibiotics. Blood cultures growing Streptococcus pneumonia. We will repeat surveillance cultures. Continue vancomycin, cefepime and Flagyl. He does have a fever today likely postsurgical. Obtain sputum cultures. LINES/IV ACCESS - Right femoral CVL, left radial A-line, peripheral IVs, OG tube, Nassar, ET tube DVT PROPHYLAXIS - SCDs Discussed with bedside nurse and RT. I have personally spent 46 minutes of critical care time in the direct management of this patient. This is a life/limb threatening event. This includes time spent evaluating patient, direct bedside care, chart review, placing orders, interpretation of diagnostic studies, discussion with consultants, patient, and family members, as well as other required patient management activities. This time is exclusive of all separately billable procedures, and teaching time and separate from and in addition to any other critical care service time. Thank you for allowing us to participate in the care of this patient. Please refer to my attending physician's documentation for any further recommendations. (2) Anxiety: (3) Lactic acidosis: (4) Hypocalcemia: (5) Elevated troponin: (6) Acute respiratory failure with hypoxia and hypercapnia: (7) Pneumonia: (8) Atrial fibrillation with rapid ventricular response: (9) Sepsis: (10) BERE (acute kidney injury): (11) Anticoagulant long-term use: (12) Hypothyroidism: (13) Hypertension: (14) Mesenteric ischemia: (15) Ischemic bowel disease: Admission and Anticipated Discharge Date Admission Date: August 14, 2021 Subjective Patient seen and examined. Currently on low-dose of Levophed. Vasopressin and phenylephrine have been weaned off. She is on Versed and fentanyl which we have paused to provide a sedation vacation. At this time, she is nonresponsive to commands. Review of Systems Review of Systems: All systems reviewed & are unremarkable except as noted in HPI & below Physical Exam Physical Exam: Constitutional: Patient currently intubated and sedated. Unresponsive to commands although on Versed and fentanyl. Eyes: Sluggishly reactive pupils. Ears nose, mouth and throat: Endotracheal tube is in place. Neck: Trachea is midline. Visual inspection is normal. Respiratory: Breath sounds bilaterally on the ventilator with diminishment right lung base. Cardiovascular: Regular rate and rhythm. No murmurs. No edema. Gastrointestinal: Tense abdomen with diminished bowel sounds. Ischemic skin changes noted. Musculoskeletal: Unable to fully assess given her intubation status. All extremities intact. Skin: Severe mottling and purpling of her bilateral breasts, bilateral ears livedo reticularis noted in all extremities. Neurologic: Sedated Psychiatric: Unable to evaluate Results & Data Results & Data ([facility]) Vital Signs (Past 12 Hours) Vital Signs Temp Pulse Resp BP Pulse Ox Pulse Ox 08/16/21 07:45 93 H 22 92 08/16/21 05:00 95 08/16/21 04:00 107/50 L 08/16/21 03:05 93 H 28 H 92 08/16/21 00:00 37.4 C 88 23 142/55 H 92 08/15/21 23:00 37.2 C 88 23 93 08/15/21 22:35 87 26 H 94 08/15/21 22:00 37.0 C 86 26 H 93 08/15/21 21:00 36.8 C 86 26 H 92 Coding Level of Care Code Critical Care 1st 30-74 mins Diagnoses Septic shock A41.9; R65.21 Anxiety F41.9 Lactic acidosis E87.2 Hypocalcemia E83.51 Elevated troponin R77.8 Acute respiratory failure with hypoxia and hypercapnia J96.01; J96.02 Pneumonia J18.9 Laterality: right Lung location: unspecified part of lung Pneumonia type: due to unspecified organism Atrial fibrillation with rapid ventricular response I48.91 Sepsis A41.9 Sepsis acute organ dysfunction status: unspecified Sepsis type: sepsis due to unspecified organism BERE (acute kidney injury) N17.9 Anticoagulant long-term use Z79.01 Hypothyroidism E03.9 Hypothyroidism type: acquired Hypertension I10 Hypertension type: essential hypertension Mesenteric ischemia K55.9 Ischemic bowel disease K55.9 Time Spent (min) 46 (1) Pneumonia Laterality: right Lung location: unspecified part of lung Pneumonia type: due to unspecified organism Qualified Code(s): J18.9 - Pneumonia, unspecified organism (2) Sepsis Sepsis acute organ dysfunction status: unspecified Sepsis type: sepsis due to unspecified organism Qualified Code(s): A41.9 - Sepsis, unspecified organism (3) Hypothyroidism Hypothyroidism type: acquired Qualified Code(s): E03.9 - Hypothyroidism, unspecified (4) Hypertension Hypertension type: essential hypertension Qualified Code(s): I10 - Essential (primary) hypertension
[2021-08-16] MEDS: NOREPINEPHRINE/D5W 8 MG/508 ML BAG IV SCH (09:07)
[2021-08-16] MEDS: FAMOTIDINE 20 MG in SYRINGE 3 ML IV SCH (09:09)
[2021-08-16] MEDS: INSULIN ASPART PER UNIT SC SCH ×4 (10:08→21:20)
[2021-08-16] MEDS: VASOPRESSIN 20 UNITS in 0.9 % SODIUM CHLORIDE 100 ML IV SCH ×2 (10:09→16:05)
[2021-08-16] MEDS: PHENYLEPHRINE HCL 20 MG in DEXTROSE 5% 500 ML IV SCH ×5 (10:53→17:49)
[2021-08-16] MEDS ORDERED: ESMOLOL BOLUS FROM BAG IV ONE (11:00)
[2021-08-16] MEDS ORDERED: MEROPENEM CONSULT ACTIVE PRN (11:27)
[2021-08-16] MEDS ORDERED: MEROPENEM 500 MG in SYRINGE 0 ML IV SCH (11:30)
[2021-08-16] MEDS: ESMOLOL / NSS 2,500 MG/250 ML BAG IV SCH (11:57)
[2021-08-16] MEDS: PANTOprazole 40 MG in SYRINGE 0 ML IV SCH (12:00)
[2021-08-16] MEDS ORDERED: CASPOFUNGIN 70 MG in SODIUM CHLORIDE 0.9% 250 ML IV ONE (12:00)
--- NOTE | 2021-08-16 12:19 | Procedure Note ---
Procedure Note Date of Service August 16, 2021 Note Due to the patient's hemodynamic instability and worsening atrial fibrillation with rapid ventricular response, the patient was emergently cardioverted using 150 J of synchronized energy. Patient's daughter who is the POA was called prior to the procedure to obtain verbal consent. Pads were already in place prior to the cardioversion. Patient's blood pressures were noted to be 90s over 50s with heart rates jumping to the 160s. Timeout was completed prior to the procedure. All were in agreement to proceed with cardioversion. 150 J of energy was applied via cardioversion. Patient converted to sinus rhythm for approximately 40 seconds with improvement in blood pressures, but then went back into atrial fibrillation with rapid ventricular response. Coding CPT Codes Resuscitation - Resuscitation: 29585 Cardioversion electric, ext ([id number]) [facility] Procedure Codes (Charges) Resuscitation Resuscitation: 50343 Cardioversion electric, ext
--- NOTE | 2021-08-16 12:22 | Communication Note ---
Date of Service: August 16, 2021 I was called to the bedside due to ongoing hypotension. Patient is requiring escalating doses of Levophed, vasopressin and phenylephrine. Ultimately we el ected to proceed with an emergent cardioversion which was unsuccessful and sustaining a sinus rhythm. Patient has not ongoing fever. I have expanded her antibiotics to vancomycin, meropenem and the addition of caspofungin. Have also initiated the patient on esmolol drip to establish rate control with her atrial fibrillation. Heparin is on hold at this time due to concerns of thrombocytopenia. Peripheral smear pending as noted previously. Unfortunately, the patient has been unresponsive to commands despite being off sedation for several hours. We will proceed with MRI of the brain. I had a lengthy discussion with the patient's daughter over the phone who is the DPOA. She indicated the patient has expressed before that she would not want excessively heroic measures such as CPR or defibrillation in the event of a cardiac arrest. The patient has been made a DNR in order to reflect her wishes. Her overall prognosis remains extremely poor. Coding Level of Care Code Critical Care hernesto wolfe 30 min Time Spent (min) 32
[2021-08-16] MEDS: MEROPENEM 500 MG in SYRINGE 0 ML IV SCH ×2 (12:48→23:16)
--- NOTE | 2021-08-16 12:53 | Pharmacy Report ---
Pharmacy Glycemic Short Note 2 - Date of Service August 16, 2021 - Glycemic Short BSG Results (Last 24 hours): 08/15/21 08/15/21 08/15/21 14:02 14:05 15:46 Glucose 216 H POC Glucose (other) 217 H 235 H 08/15/21 08/15/21 08/15/21 17:04 18:21 19:12 Glucose POC Glucose (other) 237 H 234 H 231 H 08/15/21 08/15/21 08/16/21 20:06 21:24 00:45 Glucose POC Glucose (other) 228 H 229 H 223 H 08/16/21 08/16/21 08/16/21 02:06 04:00 04:20 Glucose 133 H POC Glucose (other) 194 H 143 H 08/16/21 08/16/21 08/16/21 08:23 09:24 11:28 Glucose POC Glucose (other) 101 H 108 H 106 H OUTPATIENT ANTIDIABETIC REGIMEN: * N/A * HbA1C: 7.5% ASSESSMENT: * Patient's insulin infusion ran at 3.6 units/hr overnight. * This morning, BSGs dropped significantly so insulin infusion turned to 1 unit/hr. Now steady with BSGs actually below goal. * Patient still critically ill on 3 vasopressors and esmolol. Antibiotics escalated. BACKGROUND * Patient is critically ill, admitted for acute hypoxic respiratory failure and septic shock requiring vasopressor support. History of DM2, however on no diabetes medications outpatient. A1C ordered for tomorrow w/ AM labs. * Currently intubated, receiving IV antibiotics, and pressors (norepinephrine, phenylephrine, and vasopressin) in addition to steroids (Solu-Cortef 50mg IV q6h). She is POD #0 exp lap with small bowel resection. * Initiated on an insulin infusion for hyperglycemia per ICU protocol @ 2.5units/hr given numerous acute stressors and changes. Adjustments per insulin infusion adjustment calculator. PLAN FOR INPATIENT GLYCEMIC CONTROL: * Basal insulin * Regular insulin infusion * Bolus insulin * NovoLog per insulin infusion calculator ACHS or Q6hrs while NPO * Goal Range: Low 110 mg/dL - High 180 mg/dL * Nutritional / Prandial insulin per insulin infusion calculator
--- NOTE | 2021-08-16 13:30 | Nephrology Consultation ---
Date of Consultation August 16, 2021 Assessment & Plan (1) BERE (acute kidney injury): (2) Pneumonia: (3) Septic shock: (4) Mesenteric ischemia: (5) S/P small bowel resection: (6) Atrial fibrillation with rapid ventricular response: (7) Hypocalcemia: Urine microscopy reveals granular casts. Patient presented w/ ATN due to infection and septic shock. Contrast nephropathy and later abdominal compartment syndrome are also likely contributing factors. Electrolyte balance is currently acceptable. Although patient is developing tense edema of the extremities she may not tolerate conventional HD unless her hemodynamic status stabilizes (currently on esmolol, phenylephrine and vasopressin). ICU team is actively supplementing/correcting serum calcium and providing pressor support. Prognosis appears poor. Await brain MRI results and family decisions regarding code status and extent of care. History of Present Illness Reason for Consultation: BERE Attending Physician: Antonio Vasquez DO History of Present Illness Mrs. Mcclellan is a 65 year old white female who is seen at the request of Dr. Ortez for evaluation of BERE. Mrs. Mcclellan was evaluated in the ICU and POC was discussed w/ the ICU team this afternoon. Mrs. Mcclellan has no prior h/o kidney disease. Her baseline Cr has been 0.8 - 1.0. Her medical history is significant for AODM, atrial fibrillation, hypercholesterolemia, hypothyroidism, and a 50 pack year smoking history. She presented to [facility] 08/14/21 for evaluation of dyspnea. She was found to be in respiratory distress and hypoxemic. She was intubated, placed on mechanical ventilation and pressor support while in the EMD. Creatinine was 2.36 upon admission and urine micr oscopy did reveal granular casts. CTA of chest revealed RLL pneumonia suggestive of an aspiration event. There was no PE reported. Her ICU course was complicated by progressive hypoxia and hypotension. Abdominal CT was negative for hydronephrosis but did demonstrate mesenteric stranding suggestive of small bowel ischemia. Exploratory laparotomy was performed 08/15/21 which revealed extensive ischemia. Patient required resection of jejunum and ileum (~ 3/4 small intestine). Post-op she has remained hypotensive and required pressor support. Sedation has been weaned but patient is not responsive. Brain MRI is planned to assess for ischemic insult. Creatinine has risen to 2.7 but patient remains nonoliguric. Mrs. Mcclellan suffered an episode of atrial fibrillation w/ RVR this afternoon complicated by hemodynamic instability. She did respond to cardioversion. ICU team has discussed poor prognosis w/ family. They are considering code status and have indicated that they do not desire further heroic measures such as CPR or HD. Allergies Allergy/AdvReac Type Severity Reaction Status Date / Time ciprofloxacin [From Cipro] Allergy Unknown Unknown Unverified 08/15/21 13:54 Penicillins Allergy Unknown Unknown Unverified 08/15/21 13:54 Sulfa (Sulfonamide Allergy Unknown Unknown Unverified 08/15/21 13:54 Antibiotics) Home Medications Medication Instructions Recorded Confirmed Type aspirin 81 mg tablet,delayed 81 mg PO DAILY 01/12/19 08/14/21 History release (Aspirin Low Dose) gabapentin 300 mg capsule 300 mg PO BID 01/12/19 08/14/21 History losartan 50 mg tablet 50 mg PO QPM 01/12/19 08/14/21 History sertraline 100 mg tablet (Zoloft) 100 mg PO BID 01/12/19 08/14/21 History rosuvastatin 40 mg tablet (Crestor) 40 mg PO DAILY #30 tab 01/14/19 08/14/21 Rx apixaban 5 mg tablet (Eliquis) 5 mg PO BID #60 tab 04/08/20 08/14/21 Rx metoprolol succinate 50 mg 50 mg PO DAILY #30 tab 10/16/20 08/14/21 Rx tablet,extended release 24 hr levothyroxine 75 mcg tablet 75 mcg PO DAILYBB 08/14/21 08/14/21 History Patient History Medical History (Updated 08/16/21 @ 09:04 by Aj Ortez MD) Anxiety Depression Diabetes History of cervical cancer Hypertension Hypothyroidism Ischemic bowel disease Mesenteric ischemia Small bowel obstruction Patient had surgery for this 2018 Tobacco abuse Surgical History (Updated 08/16/21 @ 06:38 by Eduardo Nelson MD, FACS) H/O hernia repair Patient has mesh in place H/O lumpectomy History of cholecystectomy History of hysterectomy Family History Mother Stroke Denies family history of Ovarian cancer Prostate cancer Breast cancer Lung cancer Colorectal cancer Social History Smoking Status: Current every day smoker Cigarettes Per Day: 40; Do You Dip or Chew Tobacco: No; Preferred Language: [place] Communication Ability: Unable Communication Ability Comment: Patient intubated and sedated at time of admission Revenue Specialist Required: No Beliefs That Will Affect Care: None marital status: Current Living Situation: Other Current Living Situation Comment: Unknown; patient intubated and sedated at time of admission Feels Safe at Home: Yes Assistive Devices: Oxygen - Continuous Review of Systems Review of Systems: Unobtainable due to endotracheal tube Physical Exam Physical Exam: mechanically ventilated sedation is off but patient is unresponsive to verbal or tactile stimuli ENMT: orotracheal intubated Respiratory: coarse BS bilaterally Cardiovascular: Rate/Rhythm: + tachycardic and + irregularly irregular weak peripheral pulses Gastrointestinal (Abdomen): distended, wound vac in place Results & Data ([facility]) Vital Signs (Past 12 Hours) Vital Signs Temp Pulse Resp BP Pulse Ox Pulse Ox 08/16/21 12:30 126 H 29 H 100 08/16/21 12:00 139 H 29 H 100 08/16/21 11:45 143 H 18 100 08/16/21 11:30 137 H 27 H 96 08/16/21 11:00 140 H 32 H 95 08/16/21 10:30 138 H 29 H 93 08/16/21 10:00 132 H 28 H 96 08/16/21 09:30 38.6 C H 96 H 32 H 93 08/16/21 09:00 38.6 C H 94 H 31 H 90 08/16/21 08:30 38.6 C H 95 H 14 92 08/16/21 08:00 38.6 C H 94 H 22 91 08/16/21 07:45 93 H 22 92 08/16/21 07:30 38.6 C H 94 H 22 92 08/16/21 07:00 38.5 C H 94 H 22 93 08/16/21 05:00 95 08/16/21 04:00 107/50 L 08/16/21 03:05 93 H 28 H 92 Laboratory Results Laboratory Tests 08/14/21 08/16/21 08/16/21 01:14 04:20 04:20 WBC 8.91 Hgb 9.2 L Hct 26.6 L Plt Count 90 L Sodium 131 L Potassium 3.6 Chloride 81 L Carbon Dioxide 29 BUN 39 H Creatinine 2.78 H Glucose 133 H Calcium 5.6 L* Phosphorus 4.8 D Magnesium 1.9 Total Bilirubin 1.2 H AST 1617 H ALT 659 H Total Creatine Kinase 7858 H Albumin 2.4 L Urine Color [place] Urine Appearance Clear Urine pH 5.0 Ur Specific [place] 1.017 Urine Protein 2+ H Urine Blood Negative Urine RBC (Auto) 0-4 Granular Casts 1-5 H PG Care Time/CCT Total # of Minutes Spent Total Time Spent with Patient: Total time spent is greater than 50% in coordination of care (as documented) at patient's floor/unit and/or counseling patient: Coding Level of Care Code 54814 Inpt Consult Level 5 Diagnoses BERE (acute kidney injury) N17.9 Septic shock A41.9; R65.21 S/P small bowel resection Z90.49 Mesenteric ischemia K55.9 Atrial fibrillation with rapid ventricular response I48.91 Pneumonia J18.9 Laterality: right Lung location: unspecified part of lung Pneumonia type: due to unspecified organism Hypocalcemia E83.51 (1) Pneumonia Laterality: right Lung location: unspecified part of lung Pneumonia type: du e to unspecified organism Qualified Code(s): J18.9 - Pneumonia, unspecified organism
--- NOTE | 2021-08-16 15:53 | Magnetic Resonance Report ---
MR brain wo con CLINICAL HISTORY: Severe encephalopathy and unresponsiveness TECHNIQUE: Multiplanar and multisequence MR images of the brain were obtained without intravenous con trast. Comparison: None available at the time of this dictation. FINDINGS: No abnormal restricted diffusion is identified. The white matter is unremarkable. The ventricular sys tem is normal in appearance. There are no masses, mass effect, or midline shift. No abnormal enhancem ent is seen. There is no evidence of acute intraparenchymal hemorrhage. No extra axial fluid collecti ons are seen. The corpus callosum, pituitary gland, and cerebellar tonsils appear grossly unremarkabl e. Flow voids of the major intracranial arterial vessels are identified. The imaged portions of the para nasal sinuses, mastoid air cells, and orbits are unremarkable. IMPRESSION: No acute abnormalities. ACT 112: Negative or not required by law. Electronically signed by: Lester Kincaid M.D. 08/16/2021 3:52 PM
[2021-08-16] MEDS: INSULIN REGULAR 250 UNITS in SODIUM CHLORIDE 0.9% 247.5 ML IV SCH (16:04)
[2021-08-16 16:35] LABS: iSTAT Arterial Blood Gas HCO3 32 meg/L (19-24); iSTAT Arterial Blood Gas pCO2 52 mmHg (35-46); iSTAT Arterial Blood Gas pO2 81 mmHg (80-95); iSTAT Carbon Dioxide 33 mmol/L (24-31); iSTAT FiO2 75 %; iSTAT Site Art Line
--- NOTE | 2021-08-16 17:06 | Billing Data ---
Date of Service August 16, 2021 Coding Level of Care Code 88788 Subseq Hosp Care Lvl 1
--- NOTE | 2021-08-16 17:52 | Cardiology Consultation ---
Date of Consultation August 16, 2021 Assessment & Plan (1) Atrial fibrillation with rapid ventricular response: (2) Septic shock: (3) Acute respiratory failure with hypoxia and hypercapnia: ASSESSMENT/PLAN: 1. Atrial fibrillation with rapid ventricular response: Despite cardioversion on 08/16/2021, quickly reverted to AFib in less than 1 minute. Avoiding amiodarone due to escalating transaminase levels. Continue with esmolol to try to achieve reasonable rate control in the setting of septic shock. If unsuccessful, could attempt 1 dose of intravenous digoxin, but must be careful in the setting of acute kidney injury. If necessary, in the setting of unstable AFib, could try amiodarone, although not ideal in the setting of acute liver injury. Would except tachycardia as long as suitable blood pressure able to be maintained as some degree of tachycardia would be physiologic. AFib will likely improve if her acute illness improves. Continue anticoagulation for stroke risk reduction. 2. Septic shock: As per primary service and critical care team. 3. Acute respiratory failure with hypoxia and hypercapnia: As per critical care team. 4. Disposition: Critically ill patient. Cardiology will continue to follow. Critical care team has conversed with family. 38 minutes of critical care time, including examining patient, reviewing records, discussing with critical care team, reviewing studies and coordinating care. History of Present Illness Reason for Consultation: Atrial fibrillation Requesting Physician: Dr. Ortez Attending Physician: Antonio Vasquez DO History of Present Illness Ms. Mcclellan is a 65-year-old female with a history significant for paroxysmal atrial fibrillation, type 2 diabetes, hypothyroidism, and dyslipidemia. She was admitted on 08/14/2021 with acute respiratory failure with hypoxia and hypercapnia, found to have severe lactic acidosis in the setting of sepsis with right lower lobe pneumonia. She was intubated and placed on mechanical ventilation in the emergency department and admitted to ICU care. She was initially found to have AFib with RVR but converted to sinus rhythm as noted on repeat ECG on the day of presentation at 6:05 a.m.. She has required pressor support with 3 different pressors at 1 time. She developed ischemic bowel and underwent bowel resection during exploratory laparotomy on 08/15/[address] Nelson, with plans for repeat surgical procedure later this hospital stay. At approximately 9:33 a.m. this morning (08/16/2021) she developed AFib with RVR while previously being in sinus rhythm. When heart rates increased to the 140s or above, blood pressure became more hypotensive per critical care team, despite pressor support. She was cardioverted by the critical care team with 150 joules and maintain sinus rhythm for approximately 40 seconds before reverting back to atrial fibrillation with rapid ventricular response. At that time, she had been receiving Levophed and phenylephrine. Esmolol drip was then initiated by the critical care team. She became more h ypotensive and vasopressin was initiated, but only briefly while phenylephrine was briefly disconnected. When phenylephrine was resumed, blood pressure quickly improved. Her transaminase levels have been trending upward with an AST of 1617 today. Nephrology was consulted today for acute kidney injury. She is no longer receiving sedation, and no meaningful neurologic response has been noted this morning per critical care team. She underwent MRI of the brain this afternoon with no acute abnormalities reported by Radiology. Review of systems: Unobtainable due to patient's current unresponsive state. Family history: Unobtainable due to patient's current status. Social history: Unobtainable due to patient's current mental status. Allergies Allergy/AdvReac Type Severity Reaction Status Date / Time ciprofloxacin [From Cipro] Allergy Unknown Unknown Unverified 08/15/21 13:54 Penicillins Allergy Unknown Unknown Unverified 08/15/21 13:54 Sulfa (Sulfonamide Allergy Unknown Unknown Unverified 08/15/21 13:54 Antibiotics) Home Medications Medication Instructions Recorded Confirmed Type aspirin 81 mg tablet,delayed 81 mg PO DAILY 01/12/19 08/14/21 History release (Aspirin Low Dose) gabapentin 300 mg capsule 300 mg PO BID 01/12/19 08/14/21 History losartan 50 mg tablet 50 mg PO QPM 01/12/19 08/14/21 History sertraline 100 mg tablet (Zoloft) 100 mg PO BID 01/12/19 08/14/21 History rosuvastatin 40 mg tablet (Crestor) 40 mg PO DAILY #30 tab 01/14/19 08/14/21 Rx apixaban 5 mg tablet (Eliquis) 5 mg PO BID #60 tab 04/08/20 08/14/21 Rx metoprolol succinate 50 mg 50 mg PO DAILY #30 tab 10/16/20 08/14/21 Rx tablet,extended release 24 hr levothyroxine 75 mcg tablet 75 mcg PO DAILYBB 08/14/21 08/14/21 History Patient History Medical History (Updated 08/16/21 @ 09:04 by Aj Ortez MD) Anxiety Depression Diabetes History of cervical cancer Hypertension Hypothyroidism Ischemic bowel disease Mesenteric ischemia Small bowel obstruction Patient had surgery for this 2018 Tobacco abuse Surgical History (Updated 08/16/21 @ 06:38 by Eduardo Nelson MD, FACS) H/O hernia repair Patient has mesh in place H/O lumpectomy History of cholecystectomy History of hysterectomy Family History Mother Stroke Denies family history of Ovarian cancer Prostate cancer Breast cancer Lung cancer Colorectal cancer Social History Smoking Status: Current every day smoker Cigarettes Per Day: 40; Do You Dip or Chew Tobacco: No; Preferred Language: Setswana Communication Ability: Unable Communication Ability Comment: Patient intubated and sedated at time of admission Tool Maker Bench Required: No Beliefs That Will Affect Care: None marital status: Current Living Situation: Other Current Living Situation Comment: Unknown; patient intubated and sedated at time of admission Feels Safe at Home: Yes Assistive Devices: Oxygen - Continuous Physical Exam Physical Exam: Gen.: Unresponsive to verbal stimuli. On mechanical ventilator. Neck: No obvious JVD. Normal carotid upstrokes bilaterally. Cardiac: Irregularly irregular and tachycardic. Normal S1-S2. No murmurs, rubs, or gallops. Pulmonary: Clear to auscultation bilaterally on anterior auscultation. Abdomen: Wound VAC in place from recent surgical procedure. Extremities: 2+ radial pulses bilaterally. 2+ posterior tibialis pulses bilaterally. 1+ anasarca. No cyanosis. Results & Data ([facility]) Vital Signs (Past 12 Hours) Vital Signs Temp Pulse Resp BP Pulse Ox 08/16/21 17:25 37.3 C 08/16/21 17:20 64 17 113/48 L 93 08/16/21 17:00 64 14 91 08/16/21 16:30 109 H 14 94 08/16/21 16:07 37.6 C H 08/16/21 16:00 128 H 14 98 03/05/22 15:35 71 18 91 08/16/21 15:30 74 28 H 92 08/16/21 15:00 68 17 106/55 L 85 L 08/16/21 14:37 20 08/16/21 13:30 70 28 H 94 08/16/21 13:00 125 H 20 100/50 L 99 08/16/21 12:30 126 H 29 H 100 08/16/21 12:00 139 H 29 H 100 08/16/21 11:45 143 H 18 100 08/16/21 11:30 137 H 27 H 96 08/16/21 11:00 140 H 32 H 95 08/16/21 10:30 138 H 29 H 93 08/16/21 10:00 132 H 28 H 96 08/16/21 09:30 38.6 C H 96 H 32 H 93 08/16/21 09:00 38.6 C H 94 H 31 H 90 08/16/21 08:30 38.6 C H 95 H 14 92 08/16/21 08:00 38.6 C H 94 H 22 91 08/16/21 07:45 93 H 22 92 08/16/21 07:30 38.6 C H 94 H 22 92 08/16/21 07:00 38.5 C H 94 H 22 93 Intake & Output 08/14/21 08/15/21 08/16/21 08/17/21 06:59 06:59 06:59 06:59 Intake Total 2326.900 / 2436.917 7788.951 / 7788.951 5696.679 / 5696.679 2960.127 / 2960.127 Output Total 600 / 600 1275 / 1275 1655 / 1655 675 / 675 Balance 1726.900 / 5847.010 6240.951 / 6513.951 4041.679 / 4041.679 2285.127 / 2285.127 Weight 119 lb 0.794 oz 147 lb 14.883 oz 158 lb 1.143 oz Laboratory Results Laboratory Results - last 24 hr 08/15/21 08/15/21 08/15/21 16:13 17:04 18:21 WBC RBC Hgb POC Hgb Hct POC Hct MCV MCH MCHC RDW Std Deviation RDW Coeff of [place] Plt Count MPV Immature Gran % (Auto) Neut % (Auto) Lymph % (Auto) Crawford % (Auto) Eos % (Auto) Baso % (Auto) Neut # (Auto) Lymph # (Auto) Crawford # (Auto) Eos # (Auto) Baso # (Auto) Immature Gran # (Auto) Absolute Nucleated RBC Nucleated RBC % (auto) Platelet Estimate Ovalocytes Echinocytes Peripher Smr Path Cons PT INR Sample Site POC pH POC pCO2 POC pO2 POC HCO3 POC Total CO2 POC Base Excess ABG pH ABG pH (Temp Correct) ABG pCO2 ABG pCO2 (Temp Corrct ABG pO2 POC ABG pO2 at Pt Temp ABG HCO3 POC ABG O2 Sat ABG O2 Saturation ABG Base Excess Sesar Test Barometric Pressure Oxygen Given O2 Delivery Device POC O2 Rate Minute Ventilation POC FiO2 Tidal Volume PEEP POC Sodium Sodium POC Potassium Potassium Chloride Carbon Dioxide Anion Gap BUN Creatinine Est Cr Clr Drug Dosing Est GFR ( Amer) Est GFR (Non-Af Amer) BUN/Creatinine Ratio Glucose POC Glucose (other) 237 H 234 H Estimat Average Glucose Hemoglobin A1c Lactate Calcium Phosphorus Magnesium Total Bilirubin Direct Bilirubin AST ALT Alkaline Phosphatase Total Creatine Kinase Total Protein Albumin Procalcitonin Random Vancomycin Hepatitis C Antibody Neg 08/15/21 08/15/21 08/15/21 19:12 20:06 20:12 WBC RBC Hgb POC Hgb Hct POC Hct MCV MCH MCHC RDW Std Deviation RDW Coeff of [place] Plt Count MPV Immature Gran % (Auto) Neut % (Auto) Lymph % (Auto) Crawford % (Auto) Eos % (Auto) Baso % (Auto) Neut # (Auto) Lymph # (Auto) Crawford # (Auto) Eos # (Auto) Baso # (Auto) Immature Gran # (Auto) Absolute Nucleated RBC Nucleated RBC % (auto) Platelet Estimate Ovalocytes Echinocytes Peripher Smr Path Cons PT INR Sample Site POC pH POC pCO2 POC pO2 POC HCO3 POC Total CO2 POC Base Excess ABG pH ABG pH (Temp Correct) ABG pCO2 ABG pCO2 (Temp Corrct ABG pO2 POC ABG pO2 at Pt Temp ABG HCO3 POC ABG O2 Sat ABG O2 Saturation ABG Base Excess Sesar Test Barometric Pressure Oxygen Given O2 Delivery Device POC O2 Rate Minute Ventilation POC FiO2 Tidal Volume PEEP POC Sodium Sodium POC Potassium Potassium Chloride Carbon Dioxide Anion Gap BUN Creatinine Est Cr Clr Drug Dosing Est GFR ( Amer) Est GFR (Non-Af Amer) BUN/Creatinine Ratio Glucose POC Glucose (other) 231 H 228 H Estimat Average Glucose Hemoglobin A1c Lactate Calcium Phosphorus Magnesium Total Bilirubin Direct Bilirubin AST ALT Alkaline Phosphatase Total Creatine Kinase Total Protein Albumin Procalcitonin Random Vancomycin < 3.0 L Hepatitis C Antibody 08/15/21 08/16/21 08/16/21 21:24 00:40 00:40 WBC RBC Hgb POC Hgb Hct POC Hct MCV MCH MCHC RDW Std Deviation RDW Coeff of [place] Plt Count MPV Immature Gran % (Auto) Neut % (Auto) Lymph % (Auto) Crawford % (Auto) Eos % (Auto) Baso % (Auto) Neut # (Auto) Lymph # (Auto) Crawford # (Auto) Eos # (Auto) Baso # (Auto) Immature Gran # (Auto) Absolute Nucleated RBC Nucleated RBC % (auto) Platelet Estimate Ovalocytes Echinocytes Peripher Smr Path Cons PT INR Sample Site POC pH POC pCO2 POC pO2 POC HCO3 POC Total CO2 POC Base Excess ABG pH 7.56 H* ABG pH (Temp Correct) ABG pCO2 31 L ABG pCO2 (Temp Corrct ABG pO2 73 L POC ABG pO2 at Pt Temp ABG HCO3 27 H POC ABG O2 Sat ABG O2 Saturation 95.4 H ABG Base Excess 4.9 H Sesar Test Pos Barometric Pressure 741.5 Oxygen Given 4L O2 Delivery Device POC O2 Rate Minute Ventilation POC FiO2 Tidal Volume PEEP POC Sodium Sodium POC Potassium Potassium Chloride Carbon Dioxide Anion Gap BUN Creatinine Est Cr Clr Drug Dosing Est GFR ( Amer) Est GFR (Non-Af Amer) BUN/Creatinine Ratio Glucose POC Glucose (other) 229 H Estimat Average Glucose Hemoglobin A1c Lactate 12.2 H* Calcium Phosphorus Magnesium Total Bilirubin Direct Bilirubin AST ALT Alkaline Phosphatase Total Creatine Kinase Total Protein Albumin Procalcitonin Random Vancomycin Hepatitis C Antibody 08/16/21 08/16/21 08/16/21 00:45 02:06 04:00 WBC RBC Hgb POC Hgb Hct POC Hct MCV MCH MCHC RDW Std Deviation RDW Coeff of [place] Plt Count MPV Immature Gran % (Auto) Neut % (Auto) Lymph % (Auto) Crawford % (Auto) Eos % (Auto) Baso % (Auto) Neut # (Auto) Lymph # (Auto) Crawford # (Auto) Eos # (Auto) Baso # (Auto) Immature Gran # (Auto) Absolute Nucleated RBC Nucleated RBC % (auto) Platelet Estimate Ovalocytes Echinocytes Peripher Smr Path Cons PT INR Sample Site POC pH POC pCO2 POC pO2 POC HCO3 POC Total CO2 POC Base Excess ABG pH ABG pH (Temp Correct) ABG pCO2 ABG pCO2 (Temp Corrct ABG pO2 POC ABG pO2 at Pt Temp ABG HCO3 POC ABG O2 Sat ABG O2 Saturation ABG Base Excess Sesar Test Barometric Pressure Oxygen Given O2 Delivery Device POC O2 Rate Minute Ventilation POC FiO2 Tidal Volume PEEP POC Sodium Sodium POC Potassium Potassium Chloride Carbon Dioxide Anion Gap BUN Creatinine Est Cr Clr Drug Dosing Est GFR ( Amer) Est GFR (Non-Af Amer) BUN/Creatinine Ratio Glucose POC Glucose (other) 223 H 194 H 143 H Estimat Average Glucose Hemoglobin A1c Lactate Calcium Phosphorus Magnesium Total Bilirubin Direct Bilirubin AST ALT Alkaline Phosphatase Total Creatine Kinase Total Protein Albumin Procalcitonin Random Vancomycin Hepatitis C Antibody 08/16/21 08/16/21 08/16/21 04:04 04:20 04:20 WBC 8.91 RBC 3.38 L Hgb 9.2 L POC Hgb 9.5 L Hct 26.6 L POC Hct 28 L MCV 78.7 L MCH 27.2 MCHC 34.6 RDW Std Deviation 48.8 H RDW Coeff of [place] 16.9 H Plt Count 90 L MPV 11.4 H Immature Gran % (Auto) 1.2 Neut % (Auto) 76.8 Lymph % (Auto) 9.8 Crawford % (Auto) 12.1 Eos % (Auto) 0.0 Baso % (Auto) 0.1 Neut # (Auto) 6.84 H Lymph # (Auto) 0.87 L Crawford # (Auto) 1.08 H Eos # (Auto) 0.00 Baso # (Auto) 0.01 Immature Gran # (Auto) 0.11 H Absolute Nucleated RBC 0.33 H Nucleated RBC % (auto) 3.7 Platelet Estimate Decreased L Ovalocytes 1+ Echinocytes 1+ Peripher Smr Path Cons Pending PT 20.9 H INR 2.0 H Sample Site Art Line POC pH 7.64 H* POC pCO2 27 L POC pO2 60 L POC HCO3 29 H POC Total CO2 30 POC Base Excess 8.0 H ABG pH ABG pH (Temp Correct) 7.622 H* ABG pCO2 ABG pCO2 (Temp Corrct 28 L ABG pO2 POC ABG pO2 at Pt Temp 65 ABG HCO3 POC ABG O2 Sat 95.0 ABG O2 Saturation ABG Base Excess Sesar Test Pass Barometric Pressure Oxygen Given O2 Delivery Device Ventilator POC O2 Rate 26 Minute Ventilation 10.4 POC FiO2 40 Tidal Volume 400 PEEP 8 POC Sodium 133 L Sodium POC Potassium 3.3 Potassium Chloride Carbon Dioxide Anion Gap BUN Creatinine Est Cr Clr Drug Dosing Est GFR ( Amer) Est GFR (Non-Af Amer) BUN/Creatinine Ratio Glucose POC Glucose (other) Estimat Average Glucose Hemoglobin A1c Lactate Calcium Phosphorus Magnesium Total Bilirubin Direct Bilirubin AST ALT Alkaline Phosphatase Total Creatine Kinase Total Protein Albumin Procalcitonin Random Vancomycin Hepatitis C Antibody 08/16/21 08/16/21 08/16/21 04:20 04:20 04:20 WBC RBC Hgb POC Hgb Hct POC Hct MCV MCH MCHC RDW Std Deviation RDW Coeff of [place] Plt Count MPV Immature Gran % (Auto) Neut % (Auto) Lymph % (Auto) Crawford % (Auto) Eos % (Auto) Baso % (Auto) Neut # (Auto) Lymph # (Auto) Crawford # (Auto) Eos # (Auto) Baso # (Auto) Immature Gran # (Auto) Absolute Nucleated RBC Nucleated RBC % (auto) Platelet Estimate Ovalocytes Echinocytes Peripher Smr Path Cons PT INR Sample Site POC pH POC pCO2 POC pO2 POC HCO3 POC Total CO2 POC Base Excess ABG pH ABG pH (Temp Correct) ABG pCO2 ABG pCO2 (Temp Corrct ABG pO2 POC ABG pO2 at Pt Temp ABG HCO3 POC ABG O2 Sat ABG O2 Saturation ABG Base Excess Sesar Test Barometric Pressure Oxygen Given O2 Delivery Device POC O2 Rate Minute Ventilation POC FiO2 Tidal Volume PEEP POC Sodium Sodium 131 L POC Potassium Potassium 3.6 Chloride 81 L Carbon Dioxide 29 Anion Gap 21 H BUN 39 H Creatinine 2.78 H Est Cr Clr Drug Dosing 16.8 Est GFR ( Amer) 19.6 Est GFR (Non-Af Amer) 16.9 BUN/Creatinine Ratio 14.0 Glucose 133 H POC Glucose (other) Estimat Average Glucose 169 Hemoglobin A1c 7.5 H Lactate Calcium 5.6 L* Phosphorus 4.8 D Magnesium 1.9 Total Bilirubin 1.2 H Direct Bilirubin 0.5 H AST 1617 H ALT 659 H Alkaline Phosphatase 94 Total Creatine Kinase 7858 H Total Protein 4.9 L Albumin 2.4 L Procalcitonin Random Vancomycin 26.0 H* Hepatitis C Antibody 08/16/21 08/16/21 08/16/21 04:20 08:23 09:24 WBC RBC Hgb POC Hgb Hct POC Hct MCV MCH MCHC RDW Std Deviation RDW Coeff of [place] Plt Count MPV Immature Gran % (Auto) Neut % (Auto) Lymph % (Auto) Crawford % (Auto) Eos % (Auto) Baso % (Auto) Neut # (Auto) Lymph # (Auto) Crawford # (Auto) Eos # (Auto) Baso # (Auto) Immature Gran # (Auto) Absolute Nucleated RBC Nucleated RBC % (auto) Platelet Estimate Ovalocytes Echinocytes Peripher Smr Path Cons PT INR Sample Site POC pH POC pCO2 POC pO2 POC HCO3 POC Total CO2 POC Base Excess ABG pH ABG pH (Temp Correct) ABG pCO2 ABG pCO2 (Temp Corrct ABG pO2 POC ABG pO2 at Pt Temp ABG HCO3 POC ABG O2 Sat ABG O2 Saturation ABG Base Excess Sesar Test Barometric Pressure Oxygen Given O2 Delivery Device POC O2 Rate Minute Ventilation POC FiO2 Tidal Volume PEEP POC Sodium Sodium POC Potassium Potassium Chloride Carbon Dioxide Anion Gap BUN Creatinine Est Cr Clr Drug Dosing Est GFR ( Amer) Est GFR (Non-Af Amer) BUN/Creatinine Ratio Glucose POC Glucose (other) 101 H 108 H Estimat Average Glucose Hemoglobin A1c Lactate Calcium Phosphorus Magnesium Total Bilirubin Direct Bilirubin AST ALT Alkaline Phosphatase Total Creatine Kinase Total Protein Albumin Procalcitonin 197.58 H Random Vancomycin Hepatitis C Antibody 08/16/21 08/16/21 08/16/21 11:28 12:48 15:23 WBC RBC Hgb POC Hgb Hct POC Hct MCV MCH MCHC RDW Std Deviation RDW Coeff of [place] Plt Count MPV Immature Gran % (Auto) Neut % (Auto) Lymph % (Auto) Crawford % (Auto) Eos % (Auto) Baso % (Auto) Neut # (Auto) Lymph # (Auto) Crawford # (Auto) Eos # (Auto) Baso # (Auto) Immature Gran # (Auto) Absolute Nucleated RBC Nucleated RBC % (auto) Platelet Estimate Ovalocytes Echinocytes Peripher Smr Path Cons PT INR Sample Site POC pH POC pCO2 POC pO2 POC HCO3 POC Total CO2 POC Base Excess ABG pH ABG pH (Temp Correct) ABG pCO2 ABG pCO2 (Temp Corrct ABG pO2 POC ABG pO2 at Pt Temp ABG HCO3 POC ABG O2 Sat ABG O2 Saturation ABG Base Excess Sesar Test Barometric Pressure Oxygen Given O2 Delivery Device POC O2 Rate Minute Ventilation POC FiO2 Tidal Volume PEEP POC Sodium Sodium POC Potassium Potassium Chloride Carbon Dioxide Anion Gap BUN Creatinine Est Cr Clr Drug Dosing Est GFR ( Amer) Est GFR (Non-Af Amer) BUN/Creatinine Ratio Glucose POC Glucose (other) 106 H 122 H 153 H Estimat Average Glucose Hemoglobin A1c Lactate Calcium Phosphorus Magnesium Total Bilirubin Direct Bilirubin AST ALT Alkaline Phosphatase Total Creatine Kinase Total Protein Albumin Procalcitonin Random Vancomycin Hepatitis C Antibody 08/16/21 16:12 WBC RBC Hgb POC Hgb Hct POC Hct MCV MCH MCHC RDW Std Deviation RDW Coeff of [place] Plt Count MPV Immature Gran % (Auto) Neut % (Auto) Lymph % (Auto) Crawford % (Auto) Eos % (Auto) Baso % (Auto) Neut # (Auto) Lymph # (Auto) Crawford # (Auto) Eos # (Auto) Baso # (Auto) Immature Gran # (Auto) Absolute Nucleated RBC Nucleated RBC % (auto) Platelet Estimate Ovalocytes Echinocytes Peripher Smr Path Cons PT INR Sample Site Art Line POC pH 7.40 POC pCO2 52 H POC pO2 81 POC HCO3 32 H POC Total CO2 33 H POC Base Excess 7.0 H ABG pH ABG pH (Temp Correct) ABG pCO2 ABG pCO2 (Temp Corrct ABG pO2 POC ABG pO2 at Pt Temp ABG HCO3 POC ABG O2 Sat 96.0 H ABG O2 Saturation ABG Base Excess Sesar Test NA Barometric Pressure Oxygen Given O2 Delivery Device Ventilator POC O2 Rate 16 Minute Ventilation 6.4 POC FiO2 75 Tidal Volume 400 PEEP 8 POC Sodium Sodium POC Potassium Potassium Chloride Carbon Dioxide Anion Gap BUN Creatinine Est Cr Clr Drug Dosing Est GFR ( Amer) Est GFR (Non-Af Amer) BUN/Creatinine Ratio Glucose POC Glucose (other) Estimat Average Glucose Hemoglobin A1c Lactate Calcium Phosphorus Magnesium Total Bilirubin Direct Bilirubin AST ALT Alkaline Phosphatase Total Creatine Kinase Total Protein Albumin Procalcitonin Random Vancomycin Hepatitis C Antibody Diagnostic Findings ECGs personally reviewed as noted above in HPI. Brain MRI report reviewed as noted in HPI. Chest x-ray 08/16/2021: Faint right lung base opacity per Radiology. Chart reviewed. Telemetry personally reviewed: Sinus rhythm reverting to AFib with RVR on 08/16/2021 at 9:33 a.m.. converted to sinus rhythm at 11:52 a.m. for approximately 40 seconds following cardioversion before reverting once again to AFib with RVR. Echo 08/14/2021: Hyperdynamic LV systolic function. EF > 70%. No regional wall motion abnormalities. No significant valvular abnormalities. Medications Administered Current Inpatient Medications Acetaminophen (Acetaminophen Susp 500 Mg/15.6 Ml Udp) 500 mg PO Q6H PRN PRN Reason: Fever Stop: 09/13/21 09:57 Last Admin: 08/14/21 10:42 Dose: 500 mg Documented by: Fentanyl Citrate (Fentanyl Bolus From Bag) 50 mcg IV Q60M PRN PRN Reason: Pain or Agitation Stop: 08/28/21 04:21 Heparin Sodium (Beef Lung) (Heparin 10 Unit/Ml 5 Ml Flush) 5 ml FLUSH PRN PRN PRN Reason: Flush Stop: 09/15/21 00:44 Heparin Sodium/Dextrose (Heparin Sodium/Dextrose) 25,000 units in 500 mls @ 0 mls/hr IV .Q0M NII; Protocol Stop: 09/13/21 04:06 Last Titration: 08/15/21 19:06 Dose: 0 units/hr, 0 mls/hr Documented by: Norepinephrine Bitartrate (Levophed/D5w) 8 mg in 508 mls @ 0 mls/hr IV .Q0M NII; Protocol Stop: 09/13/21 04:29 Last Titration: 08/16/21 18:01 Dose: 0.05 mcg/kg/min, 14.1 mls/hr Documented by: Midazolam HCl (Versed) 125 mg in 250 mls @ 0 mls/hr IV .Q0M NII; Protocol Stop: 09/13/21 04:29 Last Titration: 08/16/21 08:30 Dose: 0 mg/hr, 0 mls/hr Documented by: Fentanyl Citrate (Fentanyl Citrate) 2,500 mcg in 250 mls @ 0 mls/hr IV .Q0M NII; Protocol Stop: 08/28/21 04:29 Last Titration: 08/16/21 08:30 Dose: 0 mcg/hr, 0 mls/hr Documented by: Phenylephrine HCl 20 mg/ (Dextrose) 502 mls @ 203.31 mls/hr IV .Q2H29M NII; Protocol Stop: 09/13/21 08:14 Last Admin: 08/16/21 17:49 Dose: 2.5 mcg/kg/min, 203.3 mls/hr Documented by: Vasopressin 20 units/ Sodium (Chloride) 101 mls @ 0 mls/hr IV .Q0M NII Stop: 09/13/21 08:14 Last Admin: 08/16/21 16:05 Dose: Not Given Documented by: Famotidine 20 mg/ Syringe 5 mls @ 2.5 mls/min IV DAILY [facility] Stop: 09/13/21 10:59 Last Admin: 08/16/21 09:09 Dose: 2.5 mls/min Documented by: Pantoprazole Sodium 40 mg/ (Syringe) 10 mls @ 5 mls/min IV DAILY@1100 [facility] Stop: 09/14/21 10:59 Last Admin: 08/16/21 12:00 Dose: 5 mls/min Documented by: Insulin Human Regular 250 (units/ Sodium Chloride) 250 mls @ 1 mls/hr IV .Q24H [facility]; Protocol Stop: 09/14/21 13:14 Last Admin: 08/16/21 16:04 Dose: Not Given Documented by: Hydrocortisone Sodium (Succinate 50 mg/ Syringe) 1 mls @ 4 mls/min IV Q8H [facility] Stop: 09/15/21 08:59 Last Admin: 08/16/21 15:58 Dose: 4 mls/min Documented by: Esmolol HCl (Brevibloc) 2,500 mg in 250 mls @ 0 mls/hr IV .Q0M NII; Protocol Stop: 09/15/21 10:59 Last Titration: 08/16/21 15:58 Dose: 50 mcg/kg/min, 21.5 mls/hr Documented by: Caspofungin 50 mg/ Sodium (Chloride) 257.1429 mls @ 257.143 mls/hr IV DAILY [facility] Stop: 08/27/21 08:59 Meropenem 500 mg/ Syringe 10 mls @ 2 mls/min IV Q12H [facility]; Protocol Stop: 08/26/21 11:59 Last Admin: 08/16/21 12:48 Dose: 2 mls/min Documented by: Insulin Aspart (Insulin Aspart Per Unit) 0 units SC ACHS NII Stop: 09/14/21 16:29 Last Admin: 08/16/21 17:30 Dose: Not Given Documented by: Midazolam HCl (Midazolam Bolus From Bag) 2 mg IV Q60M PRN PRN Reason: Sedation Stop: 09/13/21 04:21 Miscellaneous Information (Vancomycin Consult Active) 1 ea N/A UD PRN PRN Reason: Consult Stop: 09/13/21 09:56 Miscellaneous Information (Pharmacy Glycemic Mgmt Consult) 1 ea N/A UD PRN PRN Reason: Consult Stop: 09/14/21 13:31 Miscellaneous Information (Meropenem Consult Active) 1 ea N/A UD PRN PRN Reason: Consult Stop: 09/15/21 11:26 Vecuronium Flushing (Vecuronium Flushing 10 Mg Vial) 5 mg IV Q2H PRN PRN Reason: VENTILATOR ASYNCHRONY Stop: 09/13/21 09:55 PG Care Time/CCT Total # of Minutes Spent Total Time Spent with Patient: Total time spent is greater than 50% in coordination of care (as documented) at patient's floor/unit and/or counseling patient: Critical Care Time: Yes Total Critical Care Time: 38 Coding Level of Care Code None Diagnoses Atrial fibrillation with rapid ventricular response I48.91 Septic shock A41.9; R65.21 Acute respiratory failure with hypoxia and hypercapnia J96.01; J96.02 Additional Codes Critical Care Time - Critical Care Time: Yes ([id number]) Time Spent (min) 38 Comment [id number]
--- NOTE | 2021-08-16 20:57 | Pharmacy Report ---
Pharmacy Abx Dose Short Note - Date of Service August 16, 2021 - Assessment & Plan Assessment 65 year old F receiving vancomycin and meropenem for septic shock likely with source of aspiration pneumonia 06/17 BC growing Strep pneumoniae Plan Vancomycin * Random level of 26 mcg/mL today @ 0420 * Last vancomycin dose of 1000 mg (15 mg/kg) IV administered 08/15 ~2200. * No further doses will be administered until level falls below 20 mcg/mL * Repeat random level ordered for 1999 this evening Pharmacy will continue to follow and will adjust dose/frequency as necessary. Thank you.
[2021-08-16 20:58] LABS: iSTAT Art Bld Gas pCO2 Correct 40 mmHg (35-46); iSTAT Art Bld Gas pH Corrected 7.552 (7.35-7.45); iSTAT Arterial Blood Gas HCO3 35 meg/L (19-24); iSTAT Arterial Blood Gas pCO2 40 mmHg (35-46); iSTAT Arterial Blood Gas pH 7.56 (7.35-7.45); iSTAT Arterial Blood Gas pO2 104 mmHg (80-95); iSTAT Arterial Blood Gas pO2 C 106; iSTAT Carbon Dioxide 36 mmol/L (24-31); iSTAT FiO2 70 %; iSTAT Hematocrit 26 % (37-47); iSTAT Hemoglobin 8.8 g/dl (12.0-16.0); iSTAT Potassium 3.9 mmol/L (3.3-5.0); iSTAT Site Art Line; iSTAT Sodium 124 mmol/L (135-144)
--- NOTE | 2021-08-16 21:36 | Pharmacy Report ---
Pharmacy Abx Dose Short Note - Date of Service August 16, 2021 - Assessment & Plan Assessment 65 year old F receiving vancomycin and meropenem for septic shock likely with source of aspiration pneumonia / BC growing Strep pneumoniae Plan Vancomycin * Random level of 18.1 mcg/mL today @ 2021 * Last vancomycin dose of 1000 mg (15 mg/kg) IV administered 3/ ~2200. * Vancomycin 500mg will be given this evening x1. * Future doses will be based on levels. Pharmacy will continue to follow and will adjust dose/frequency as necessary. Thank you.
[2021-08-16] MEDS ORDERED: VANCOMYCIN HCL 500 MG in 0.9 % SODIUM CHLORIDE 100 ML IV SCH (22:00)
[2021-08-16 23:29] LABS: Hematocrit (blood only) 25.9 % (37-47); Hemoglobin 8.8 g/dL (12.0-16.0)
[2021-08-16 23:51] LABS: BUN Creatinine Ratio 14.8 (10-20); Calcium 6.6 mg/dl (8.5-10.1); Est GFR (African American) 15.1 ml/min; Magnesium 1.9 mg/dl (1.7-2.4); Phosphorus 5.9 mg/dl (2.5-4.9); Potassium 4.2 mmol/L (3.5-5.1)
[2021-08-17] MEDS ORDERED: CALCIUM CHLORIDE 10% 1,000 MG in DEXTROSE 5% 50 ML IV STA (00:09)
[2021-08-17] MEDS: ESMOLOL / NSS 2,500 MG/250 ML BAG IV SCH ×2 (00:28→10:15)
[2021-08-17 04:05] LABS: iSTAT Art Bld Gas pCO2 Correct 35 mmHg (35-46); iSTAT Arterial Blood Gas HCO3 33 meg/L (19-24); iSTAT Arterial Blood Gas pCO2 35 mmHg (35-46); iSTAT Arterial Blood Gas pH 7.58 (7.35-7.45); iSTAT Arterial Blood Gas pO2 77 mmHg (80-95); iSTAT Arterial Blood Gas pO2 C 77; iSTAT Carbon Dioxide 34 mmol/L (24-31); iSTAT FiO2 40 %; iSTAT Hematocrit 28 % (37-47); iSTAT Hemoglobin 9.5 g/dl (12.0-16.0); iSTAT Potassium 4.3 mmol/L (3.3-5.0); iSTAT Site Art Line; iSTAT Sodium 124 mmol/L (135-144)
[2021-08-17 04:26] LABS: Hepatitis A Antibody IgM NON-REACTIVE (NON-REACTIVE); Hepatitis B Core Antibody IgM NON-REACTIVE (NON-REACTIVE)
[2021-08-17 04:28] LABS: Hematocrit (blood only) 26.5 % (37-47); Hemoglobin 9.1 g/dL (12.0-16.0); Mean Corpuscular Hemoglobin 27.3 pg (25-34); Mean Corpuscular Hgb Conc 34.3 g/dL (32-36); Mean Corpuscular Volume 79.6 fL (80-100); Nucleated RBC # (auto) 0.18 K/uL (0-0); Nucleated RBC % (auto) 1.4 %; RDW Coefficient of Variation 17.2 % (11.5-14.5); RDW Standard Deviation 50.5 fL (36.4-46.3); Red Blood Count 3.33 M/uL (4.2-5.4); White Blood Count 13.06 K/uL (4.8-10.8)
[2021-08-17 04:47] LABS: BUN Creatinine Ratio 15.7 (10-20); Calcium 6.6 mg/dl (8.5-10.1); Est GFR (African American) 13.9 ml/min; Potassium 4.3 mmol/L (3.5-5.1)
[2021-08-17 05:03] LABS: Mean Platelet Volume 10.9 fL (7.4-10.4); Platelet Count 79 K/uL (130-400)
[2021-08-17 05:05] LABS: Platelet Estimate Decreased (Normal)
[2021-08-17 05:37] LABS: Albumin Globulin Ratio 0.8 (0.9-2); Albumin Level 2.2 gm/dl (3.4-5.0); Bilirubin,Total 1.4 mg/dl (0.2-1.0); Globulin 2.7 gm/dl (2.5-4.0); Phosphorus 6.4 mg/dl (2.5-4.9); Total Protein 4.9 gm/dl (6.0-8.3)
[2021-08-17] MEDS: NOREPINEPHRINE/D5W 8 MG/508 ML BAG IV SCH ×3 (06:01→11:27)
[2021-08-17] MEDS: HYDROCORTISONE SOD 50 MG in SYRINGE 0 ML IV SCH (06:50)
--- NOTE | 2021-08-17 06:53 | Surgery Progress Note ---
Date of Service August 17, 2021 Assessment & Plan (1) S/P small bowel resection: Plan: Patient with multisystem organ failure Continues on IV pressors Worsening renal function with decreased urine output Elevated transaminases indicating hepatic ischemia Thrombocytopenia which is worsening Status post extensive small bowel resection for infarction and necrosis Depending on patient's progress-additional extensive abdominal surgery would be required This would include possible additional resection, stoma formation which may be a proximal jejunostomy causing significant high output and fluid loss Possible reanastomosis but this would not be performed in patient's current situation Admission and Anticipated Discharge Date Admission Date: August 14, 2021 Results & Data ([facility]) Vital Signs (Past 12 Hours) Vital Signs Temp Pulse Resp BP Pulse Ox Pulse Ox 08/17/21 06:00 37.2 C 54 L 17 95 08/17/21 05:30 37.2 C 64 16 96 08/17/21 05:00 37.2 C 65 16 95 08/17/21 04:58 95 08/17/21 04:30 37.2 C 50 L 16 93 08/17/21 04:00 37.2 C 58 L 16 100/45 L 97 08/17/21 03:56 16 08/17/21 03:30 37.0 C 62 16 98 08/17/21 03:05 58 L 16 99 08/17/21 03:00 37.0 C 61 16 99 08/17/21 02:30 37.0 C 59 L 16 99 08/17/21 02:00 37.0 C 63 17 98 08/17/21 01:30 37.0 C 64 16 99 08/17/21 01:00 37.0 C 63 16 99 08/17/21 00:30 37.0 C 63 16 99 08/17/21 00:00 37.0 C 62 16 89/48 L 99 08/16/21 23:30 37.1 C 63 16 98 08/16/21 23:15 64 16 100 08/16/21 23:00 37.1 C 65 16 100 08/16/21 22:44 16 08/16/21 22:30 37.2 C 65 17 99 08/16/21 22:00 37.2 C 65 16 92/51 L 99 08/16/21 21:30 37.3 C 65 16 99 08/16/21 21:00 37.3 C 65 14 92/54 L 100 08/16/21 20:30 66 14 100 08/16/21 20:00 66 14 100/48 L 100 08/16/21 19:30 37.2 C 65 16 100 08/16/21 19:00 65 14 92/48 L 100 PG Care Time/CCT Total # of Minutes Spent Total Time Spent with Patient: Total time spent is greater than 50% in coordination of care (as documented) at patient's floor/unit and/or counseling patient: Coding Level of Care Code None Diagnoses S/P small bowel resection Z90.49
[2021-08-17] MEDS: INSULIN ASPART PER UNIT SC SCH ×2 (07:33→14:11)
[2021-08-17] MEDS ORDERED: SODIUM CHLORIDE 0.9% 1000ML 500 ML IV ONE (08:15)
--- NOTE | 2021-08-17 08:49 | Nephrology Progress Note ---
Date of Service August 17, 2021 Assessment & Plan (1) BERE (acute kidney injury): Plan: * Ischemic ATN, MOSF. Remains in injury phase, now oliguric and 3rd spacing volume * Dialysis services are not available today. Patient however remains hemodynamically unstable and likely wound not tolerate conventional dialysis at this time. Fortunately electrolyte balance remains acceptable at this time * POC discussed w/ ICU team this morning. They met with the family yesterday. Family does not wish heroic measures and indicated that they do not want HD if condition worsens. They are considering transition to comfort measures. (2) Hyponatremia: Plan: * Hyponatremia likely due to multiple factors including shock, administration of vasopressin, use of hypotonic solutions * Recommend 100 cc 3% NaCl and monitor PRP (3) Pneumonia: (4) Septic shock: (5) Mesenteric ischemia: (6) S/P small bowel resection: (7) Atrial fibrillation with rapid ventricular response: (8) Hypocalcemia: Admission and Anticipated Discharge Date Admission Date: August 14, 2021 Subjective Mrs. Mcclellan was evaluated in the ICU this morning. She remains on the mechanical ventilator. Sedation has been stopped, she grimaces to painful stimuli but makes no purposeful movements and does not follow commands. Pressors have been reduced to low dose Levophed this am Review of Systems Review of Systems: Unobtainable due to endotracheal tube Physical Exam Physical Exam: mechanically ventilated Respiratory: coarse breath sounds bilaterally Cardiovascular: Rate/Rhythm: + irregularly irregular Extremities: + edema (tense edema of the extremities) Gastrointestinal (Abdomen): distended, wound vac in place Results & Data ([facility]) Vital Signs (Past 12 Hours) Vital Signs Temp Pulse Resp BP Pulse Ox Pulse Ox 08/17/21 08:00 51 L 18 96 08/17/21 07:22 37.2 C 08/17/21 07:20 63 16 96 08/17/21 07:10 62 16 96 08/17/21 07:00 60 16 97 08/17/21 06:50 62 16 97 08/17/21 06:40 62 16 95 08/17/21 06:30 59 L 16 95 08/17/21 06:20 62 16 95 08/17/21 06:10 61 18 94 08/17/21 06:00 37.2 C 54 L 17 95 08/17/21 05:30 37.2 C 64 16 96 08/17/21 05:00 37.2 C 65 16 95 08/17/21 04:58 95 08/17/21 04:30 37.2 C 50 L 16 93 08/17/21 04:00 37.2 C 58 L 16 100/45 L 97 08/17/21 03:56 16 08/17/21 03:30 37.0 C 62 16 98 08/17/21 03:05 58 L 16 99 08/17/21 03:00 37.0 C 61 16 99 08/17/21 02:30 37.0 C 59 L 16 99 08/17/21 02:00 37.0 C 63 17 98 08/17/21 01:30 37.0 C 64 16 99 08/17/21 01:00 37.0 C 63 16 99 08/17/21 00:30 37.0 C 63 16 99 08/17/21 00:00 37.0 C 62 16 89/48 L 99 08/16/21 23:30 37.1 C 63 16 98 08/16/21 23:15 64 16 100 08/16/21 23:00 37.1 C 65 16 100 08/16/21 22:44 16 08/16/21 22:30 37.2 C 65 17 99 08/16/21 22:00 37.2 C 65 16 92/51 L 99 08/16/21 21:30 37.3 C 65 16 99 08/16/21 21:00 37.3 C 65 14 92/54 L 100 Laboratory Results Laboratory Tests 08/17/21 08/17/21 08/17/21 04:17 04:17 04:17 WBC 13.06 H Hgb 9.1 L Hct 26.5 L Plt Count 79 L Sodium 121 L Potassium 4.3 Chloride 77 L Carbon Dioxide 29 BUN 58 H Creatinine 3.70 H Lactate 5.3 H* Calcium 6.6 L Total Creatine Kinase 6720 H Albumin 2.2 L PG Care Time/CCT Total # of Minutes Spent Total Time Spent with Patient: Total time spent is greater than 50% in coordination of care (as documented) at patient's floor/unit and/or counseling patient: Coding Level of Care Code 16614 Subseq Hosp Care Lvl 3 Diagnoses BERE (acute kidney injury) N17.9 Pneumonia J18.9 Laterality: right Lung location: unspecified part of lung Pneumonia type: due to unspecified organism Septic shock A41.9; R65.21 Mesenteric ischemia K55.9 S/P small bowel resection Z90.49 Atrial fibrillation with rapid ventricular response I48.91 Hypocalcemia E83.51 Hyponatremia E87.1 (1) Pneumonia Laterality: right Lung location: unspecified part of lung Pneumonia type: due to unspecified organism Qualified Code(s): J18.9 - Pneumonia, unspecified organism
[2021-08-17] MEDS ORDERED: CASPOFUNGIN 50 MG in SODIUM CHLORIDE 0.9% 250 ML IV SCH (09:00)
--- NOTE | 2021-08-17 09:01 | Critical Care Progress Note ---
Date of Service August 17, 2021 Assessment & Plan (1) Septic shock: (2) Mesenteric ischemia: (3) S/P small bowel resection: (4) Atrial fibrillation with rapid ventricular response: (5) Acute respiratory failure with hypoxia and hypercapnia: (6) Hypocalcemia: (7) Lactic acidosis: (8) BERE (acute kidney injury): (9) Shock liver: Plan: Reason Critically Ill: 65-year-old female presents to the ICU with acute hypoxic respiratory failure requiring mechanical ventilation and septic shock requiring vasopressor support. Neuro - Sedation: Sedation discontinued morning of 08/16. Remains unresponsive. Ammonia normal. MRI without pathology. Possible hypoxic encephalopathy. Also possible lingering sedation given his liver failure. Cardiac - Shockseptic shock is improving and patient is currently on low-dose of Levophed. Maintain MAP above 65. AF, but holding anticoagulation given thrombocytopenia. Rate controlled. Off esmolol at this time. Cardioverted 08/16/2021, but only sustained sinus rhythm for 40 seconds. Trying to avoid amiodarone given patient's liver failure. Respiratory - ARDS is improving. She was proned on her first day of mechanical ventilation. Continue lung protective ventilation strategy. Minimize PEEP due to hypotension. She has a dense right lower lobe consolidation likely from aspiration. GI - Status post exploratory laparotomy 08/15/2021 with removal of large portion of small intestine due to ischemia. Wound VAC in place that she has an open abdomen. General surgery following. Patient with shock liver. Acute hepatitis panel ordered. Acetaminophen level was negative. Surgery considering transferring to a tertiary care center for closure of her abdomen and complex pathology RENAL/LYTES - BERE remains stable likely secondary to ischemic ATN and intra-abdominal hyperte nsion. Lactic acidosis and rhabdomyolysis is improving. Creatinine is worsening. Hyponatremia worsening as well. We will repeat BMP. Give 500 mL saline bolus at this time. Will consider hypertonic saline if sodium continues to drop. Urine osmolality, serum osmolality and urine sodium ordered. Foleystrict I's and ENDO - ICU hyperglycemic protocol Hypothyroid continue Synthroid Continue to wean stress dose steroids to twice daily HEME - Hemoglobin remained stable. Platelet count continues to trend down slightly. Anticoagulation on hold. Will order PF4 antibody to evaluate for HIT. Peripheral smear was ordered. INR and PTT ordered was elevated likely from liver failure. ID - Shock likely origin of aspiration pneumonia and gut ischemia. Antibiotics broadened 08/16/2021 to meropenem and caspofungin. Continue vancomycin. Blood cultures growing Streptococcus pneumonia. We will repeat surveillance cultures. Surveillance blood cultures pending. Sputum Gram stain negative. LINES/IV ACCESS - Right femoral CVL, left radial A-line, peripheral IVs, OG tube, Nassar, ET tube DVT PROPHYLAXIS - SCDs Discussed with bedside nurse, RT and mixing machine tender cork gasket. Lengthy discussion with family yesterday including son, daughter and distant relatives indicated that patient would not want a prolonged hospitalization or prolonged mechanical ventilation. They are considering comfort measures today if she does not have significant improvement. They would not want to pursue dialysis based on the patient's prior wishes. I have personally spent 44 minutes of critical care time in the direct management of this patient. This is a life/limb threatening event. This includes time spent evaluating patient, direct bedside care, chart review, placing orders, interpretation of diagnostic studies, discussion with consultants, patient, and family members, as well as other required patient management activities. This time is exclusive of all separately billable procedures, and teaching time and separate from and in addition to any other critical care service time. Thank you for allowing us to participate in the care of this patient. Please refer to my attending physician's documentation for any further recommendations. Admission and Anticipated Discharge Date Admission Date: August 14, 2021 Subjective Patient seen and examined. Remains unresponsive to commands. Off all sedation. Currently on low-dose of Levophed esmolol was stopped this morning due to ongoing bradycardia. Urine output has diminished. Review of Systems Review of Systems: All systems reviewed & are unremarkable except as noted in HPI & below Physical Exam Physical Exam: Constitutional: Patient currently intubated and sedated. Unresponsive to commands. Eyes: Sluggishly reactive pupils. Ears nose, mouth and throat: Endotracheal tube is in place. Neck: Trachea is midline. Visual inspection is normal. Respiratory: Breath sounds bilaterally on the ventilator with diminishment right lung base. Cardiovascular: Regular rate and rhythm. No murmurs. No edema. Gastrointestinal: Tense abdomen with diminished bowel sounds. Ischemic skin changes noted. Musculoskeletal: Unable to fully assess given her intubation status. All extremities intact. Skin: Severe mottling and purpling of her bilateral breasts, bilateral ears livedo reticularis noted in all extremities. Neurologic: Unresponsive to commands. Psychiatric: Unable to evaluate Results & Data Results & Data ([facility]) Vital Signs (Past 12 Hours) Vital Signs Temp Pulse Resp BP Pulse Ox Pulse Ox 08/17/21 08:00 51 L 18 96 08/17/21 07:22 37.2 C 08/17/21 07:20 63 16 96 08/17/21 07:10 62 16 96 08/17/21 07:00 60 16 97 08/17/21 06:50 62 16 97 08/17/21 06:40 62 16 95 08/17/21 06:30 59 L 16 95 08/17/21 06:20 62 16 95 08/17/21 06:10 61 18 94 08/17/21 06:00 37.2 C 54 L 17 95 08/17/21 05:30 37.2 C 64 16 96 08/17/21 05:00 37.2 C 65 16 95 08/17/21 04:58 95 08/17/21 04:30 37.2 C 50 L 16 93 08/17/21 04:00 37.2 C 58 L 16 100/45 L 97 08/17/21 03:56 16 08/17/21 03:30 37.0 C 62 16 98 08/17/21 03:05 58 L 16 99 08/17/21 03:00 37.0 C 61 16 99 08/17/21 02:30 37.0 C 59 L 16 99 08/17/21 02:00 37.0 C 63 17 98 08/17/21 01:30 37.0 C 64 16 99 08/17/21 01:00 37.0 C 63 16 99 08/17/21 00:30 37.0 C 63 16 99 08/17/21 00:00 37.0 C 62 16 89/48 L 99 08/16/21 23:30 37.1 C 63 16 98 08/16/21 23:15 64 16 100 08/16/21 23:00 37.1 C 65 16 100 08/16/21 22:44 16 08/16/21 22:30 37.2 C 65 17 99 08/16/21 22:00 37.2 C 65 16 92/51 L 99 08/16/21 21:30 37.3 C 65 16 99 08/16/21 21:00 37.3 C 65 14 92/54 L 100 Coding Level of Care Code Critical Care 1st 30-74 mins Diagnoses Septic shock A41.9; R65.21 Mesenteric ischemia K55.9 S/P small bowel resection Z90.49 Atrial fibrillation with rapid ventricular response I48.91 Acute respiratory failure with hypoxia and hypercapnia J96.01; J96.02 Hypocalcemia E83.51 Lactic acidosis E87.2 BERE (acute kidney injury) N17.9 Shock liver K72.00 Time Spent (min) 44
[2021-08-17 09:08] LABS: BUN Creatinine Ratio 16.7 (10-20); Calcium 6.3 mg/dl (8.5-10.1); Creatinine Clr Calc Pharmacy 13.3 ml/min; Est GFR (African American) 13.8 ml/min; Est GFR (Non-African American) 11.9 ml/min
--- NOTE | 2021-08-17 09:44 | XRay Report ---
XR chest 1V portable CLINICAL HISTORY: Follow-up pleural effusion. COMPARISON STUDY: 08/16/2021 TECHNIQUE: 1 view of the chest FINDINGS: Single frontal view of the chest demonstrates the cardiomediastinal silhouette to be within normal li mits. Compared to previous examination, there are now bilateral pleural effusions, right greater than left. There is also bibasilar atelectasis. No confluent alveolar opacity are seen. There is no evide nce for vascular congestion. There is no acute osseous pathology. Tubes and catheters appear unchange d. IMPRESSION: 1. Compared to the previous examination, there are now bilateral pleural effusions, right greater tawana n left with bibasilar atelectasis, right greater than left. ACT 112: Negative or not required by law. Electronically signed by: Zheng Simons M.D. 08/17/2021 9:43 AM
[2021-08-17 09:49] LABS: INR 1.6 (0.9-1.1); Partial Thromboplastin Ratio 1.4; Partial Thromboplastin Time 39.6 Seconds (21.0-31.0)
--- NOTE | 2021-08-17 09:53 | Hospitalist Progress Note ---
Date of Service August 17, 2021 Assessment & Plan (1) Acute respiratory failure with hypoxia and hypercapnia: Plan: Maite Mcclellan is a 65yo female with PMHx significant for a-fib (on Eliquis and Toprol), h/o cervical cancer, T2DM (A1c 5.8 in 12/2019), Hypothyroidism, and HLD who presented to [facility] ED on 08/14 for fatigue, weakness, malaise, productive cough, nausea, NB/NB vomiting several times and inability to tolerate PO for 1 day. Found to be septic with severe lactic acidosis and resultant acute respiratory failure, requiring intubation in the ED. Acute Abdomen -CT abd/pelvis: Interval development of trace gas within the left hepatic lobe. This could reflect portal venous gas or pneumobilia. No definite pneumatosis however mesenteric stranding associated with multiple small bowel loops. Therefore, small bowel ischemia is within the differential. -patient went for ex lap with surgery, removed large section of necrotic small bowel, wound vac in place, POD2 -mortality risk high, family is aware Sepsis with Septic Shock; RLL Pneumonia Respiratory failure likely primarily due to severe lactic acidosis in setting of sepsis due to RLL PNA. Patient decompensated quickly which was likely due to a- fib with RVR in addition to possible aspiration. Intubated/sedated in ED. Admit to ICU. - lactate 9.3 --> 20.3-->12.2--> 5.5-->5.3 - procalcitonin 127.86 --> >200 - WBC 10.7-->8.91-->13.06 - imaging with RLL PNA CTA negative for PE - received Cefepime x1 in the ED, will continue with Cefepime (renal dosing), metronizadole - MRSA nares positive, added vancomycin - s/p 2L NSS boluses in ED, will continue with Bicarb - blood cx - alpha strep, not enterococcus - trend lactate, trend CBC in AM - on Levophed - patient previously proned without improvement, returned to supine position - after abd ex lap, able to wean down pressors and FiO2 down from 100% to 80% - management per critical care, appreciate recommendations Acute Hypoxic Hypercapnic Respiratory Failure -2/2 to RLL PNA, sepsis -Intubated with mechanical ventilation, off sedation -trend ABGs, pulse ox monitoring -patient was proned, returned to supine position Lactic Acidosis Lactate 11.3, HCO3 10, AG 26 on admit. Due to sepsis 2/2 PNA. - ordered NaHCO3 bolus and drip -> on hold - trend CMP in AM BERE Cr 2.36, normal baseline. 2/2 to sepsis. - given IVF in ER, careful with additional fluids given pulm status -last creat 3.72 -davidson in place DM -pharmacy consulted, per their recs Electrolyte Abnormalities - K 2.9 --> 4.0 - continue to trend - suspect improvement with treatment of sepsis/PNA Elevated Troponin - trended up to 0.64 --> 0.53 Atrial Fibrillation with RVR Likely 2/2 sepsis/PNA. Recent TTE in 03/2021 with EF 60-65%. - started Heparin gtt without bolus, as patient has CHADS-VASc score of 4 and will not be able to take Eliquis surgery recommends heparin drip without bolus - hold home Toprol XL - required cardioversion and esmolol drip yesterday, esmolol d/c'd Chronic Medical Conditions HTN/HLD: hold home Losartan, Rosuvastatin and Aspirin Depression/anxiety: hold home Sertraline Diabetic Neuropathy: hold home Gabapentin Hypothyroidism: hold home Synthroid FEN/GI: NPO DVT Prophylaxis: Heparin drip Code Status: DNR/DNI Disposition: ICU (2) Pneumonia: (3) Atrial fibrillation with rapid ventricular response: (4) Sepsis: (5) Hypokalemia: (6) BERE (acute kidney injury): (7) Hypothyroidism: (8) Hypertension: (9) Diabetes: (10) Elevated troponin: (11) Hypocalcemia: (12) Lactic acidosis: (13) Anxiety: Admission and Anticipated Discharge Date Admission Date: August 14, 2021 Supervising Physician Co-Signing Physician Notes I personally examined the patient and verified all linares points of history and exam, discussed case, and agree with decision making with Dr Ramon no HPI or ROS obtainable. on ventilator. d/w SOL[employer] DEVELOP[employer] ANALYST vitals noted, on vent. otherwise as above. sepsis/septic shock/ARDS/abdominal ischemia -initially related to pneumonia. continue current management/supportive care - appreciate ICU assistance - otherwise as above Subjective Patient seen and examined. Remains unresponsive to commands. Off all sedation. Discussed care with redrying machine operator. States that family is considering moving to comfort measures depending on how patient does today. Patient is now only on a low-dose of Levophed. Patient had to be cardioverted yesterday and was placed on esmolol for atrial fibrillation with rapid ventricular response. Patient is currently in bradycardia with what looks like frequent PACs. No other subjective or review of systems could be established at this time due to current mental status. Review of Systems Review of Systems: Unobtainable due to reduced consciousness Physical Exam Constitutional: + mechanically ventilated ENMT: external ear and nose normal, oropharynx normal Neck: trachea midline, no thyromegaly Respiratory: Auscultation: + rales and + rhonchi Cardiovascular: Rate/Rhythm: + bradycardic; + abnormal rhythm Extremities: no edema Gastrointestinal (Abdomen): Inspection/Auscultation: + abdomen distended Wound VAC in place. Skin: + mottling Neurologic: + obtunded Results & Data Results & Data ([facility]) Vital Signs (Past 12 Hours) Vital Signs Temp Pulse Resp BP Pulse Ox Pulse Ox 08/17/21 08:00 51 L 18 96 08/17/21 07:22 37.2 C 08/17/21 07:20 63 16 96 08/17/21 07:10 62 16 96 08/17/21 07:00 60 16 97 08/17/21 06:50 62 16 97 08/17/21 06:40 62 16 95 08/17/21 06:30 59 L 16 95 08/17/21 06:20 62 16 95 08/17/21 06:10 61 18 94 08/17/21 06:00 37.2 C 54 L 17 95 08/17/21 05:30 37.2 C 64 16 96 08/17/21 05:00 37.2 C 65 16 95 08/17/21 04:58 95 08/17/21 04:30 37.2 C 50 L 16 93 08/17/21 04:00 37.2 C 58 L 16 100/45 L 97 08/17/21 03:56 16 08/17/21 03:30 37.0 C 62 16 98 08/17/21 03:05 58 L 16 99 08/17/21 03:00 37.0 C 61 16 99 08/17/21 02:30 37.0 C 59 L 16 99 08/17/21 02:00 37.0 C 63 17 98 03/06/22 01:30 37.0 C 64 16 99 08/17/21 01:00 37.0 C 63 16 99 08/17/21 00:30 37.0 C 63 16 99 08/17/21 00:00 37.0 C 62 16 89/48 L 99 08/16/21 23:30 37.1 C 63 16 98 08/16/21 23:15 64 16 100 08/16/21 23:00 37.1 C 65 16 100 08/16/21 22:44 16 08/16/21 22:30 37.2 C 65 17 99 08/16/21 22:00 37.2 C 65 16 92/51 L 99 (1) Diabetes Diabetes mellitus complication status: without complication Diabetes mellitus fpc insulin use: without fpc use Diabetes mellitus type: type 2 Qualified Code(s): E11.9 - Type 2 diabetes mellitus without complications (2) Hypothyroidism Hypothyroidism type: acquired Qualified Code(s): E03.9 - Hypothyroidism, unspecified (3) Sepsis Sepsis acute organ dysfunction status: unspecified Sepsis type: sepsis due to unspecified organism Qualified Code(s): A41.9 - Sepsis, unspecified organism (4) Hypertension Hypertension type: essential hypertension Qualified Code(s): I10 - Essential (primary) hypertension (5) Pneumonia Laterality: right Lung location: unspecified part of lung Pneumonia type: due to unspecified organism Qualified Code(s): J18.9 - Pneumonia, unspecified organism
--- NOTE | 2021-08-17 10:43 | Cardiology Progress Note ---
Date of Service August 17, 2021 Assessment & Plan (1) Atrial fibrillation with rapid ventricular response: (2) Septic shock: (3) Acute respiratory failure with hypoxia and hypercapnia: Plan: ASSESSMENT/PLAN: 1. Atrial fibrillation with rapid ventricular response: Has a known history of paroxysmal atrial fibrillation. Despite cardioversion on 08/16/2021, quickly reverted to AFib in less than 1 minute. Converted to sinus rhythm while on esmolol, which has since been held due to intermittent bradycardia. Has been maintaining sinus rhythm since 08/16/2021 at 1:08 p.m.. Continue anticoagulation for stroke risk reduction as able. 2. Septic shock: As per primary service and critical care team. 3. Acute respiratory failure with hypoxia and hypercapnia: As per critical care team. 4. Acute kidney injury: Followed by Nephrology. 5. Disposition: Critically ill patient. Primary geophysical engineer is Dr. Loza, who will likely resume her care on 08/19/2021. Patient care discussed with critical care team, Dr. Ortez. Admission and Anticipated Discharge Date Admission Date: August 14, 2021 Subjective Patient was seen this morning at approximately 8:50 a.m.. She remains on a ventilator. Pressors have been weaned to only Levophed. Atrial fibrillation converted to sinus rhythm on 08/16/2021 at 1:08 p.m.. She has had episodes of sinus bradycardia and therefore esmolol drip was discontinued by the critical care team. Unable to obtain review of systems due to patient's current status. Physical Exam Physical Exam: Gen.: Unresponsive to verbal stimuli. On mechanical ventilator. Neck: No obvious JVD. Cardiac: Regular with ectopy in a bigeminal fashion, in the 60s. Normal S1-S2. No murmurs, rubs, or gallops. Pulmonary: Coarse breath sounds on anterior auscultation, bilaterally. Abdomen: Wound VAC in place from recent surgical procedure. Extremities: 2+ radial pulses bilaterally. 2+ posterior tibialis pulses bilaterally. 1+ anasarca. No cyanosis. Results & Data ([facility]) Vital Signs (Past 12 Hours) Vital Signs Temp Pulse Resp BP Pulse Ox Pulse Ox 08/17/21 08:00 51 L 18 96 08/17/21 07:22 37.2 C 08/17/21 07:20 63 16 96 08/17/21 07:10 62 16 96 08/17/21 07:00 60 16 97 08/17/21 06:50 62 16 97 08/17/21 06:40 62 16 95 08/17/21 06:30 59 L 16 95 08/17/21 06:20 62 16 95 08/17/21 06:10 61 18 94 08/17/21 06:00 37.2 C 54 L 17 95 08/17/21 05:30 37.2 C 64 16 96 08/17/21 05:00 37.2 C 65 16 95 08/17/21 04:58 95 08/17/21 04:30 37.2 C 50 L 16 93 08/17/21 04:00 37.2 C 58 L 16 100/45 L 97 08/17/21 03:56 16 08/17/21 03:30 37.0 C 62 16 98 08/17/21 03:05 58 L 16 99 08/17/21 03:00 37.0 C 61 16 99 08/17/21 02:30 37.0 C 59 L 16 99 08/17/21 02:00 37.0 C 63 17 98 08/17/21 01:30 37.0 C 64 16 99 08/17/21 01:00 37.0 C 63 16 99 08/17/21 00:30 37.0 C 63 16 99 08/17/21 00:00 37.0 C 62 16 89/48 L 99 08/16/21 23:30 37.1 C 63 16 98 08/16/21 23:15 64 16 100 08/16/21 23:00 37.1 C 65 16 100 08/16/21 22:44 16 Intake & Output 08/15/21 08/16/21 08/17/21 08/18/21 06:59 06:59 06:59 06:59 Intake Total 7788.951 / 7788.951 5696.679 / 5696.679 4074.477 / 4074.460 655.7655 / 806.9479 Output Total 1275 / 1275 1655 / 1655 1365 / 1365 40 / 40 Balance 6513.951 / 6513.951 4041.679 / 4041.679 2709.477 / 2709.537 974.1379 / 766.9479 Weight 147 lb 14.883 oz 158 lb 1.143 oz 165 lb 5.547 oz Laboratory Results Laboratory Results - last 24 hr 08/15/21 08/16/21 08/16/21 16:13 11:28 12:48 WBC RBC Hgb POC Hgb Hct POC Hct MCV MCH MCHC RDW Std Deviation RDW Coeff of Arminda Plt Count MPV Absolute Nucleated RBC Nucleated RBC % (auto) Platelet Estimate PT INR APTT PTT Ratio Sample Site POC pH POC pCO2 POC pO2 POC HCO3 POC Total CO2 POC Base Excess ABG pH (Temp Correct) ABG pCO2 (Temp Corrct POC ABG pO2 at Pt Temp POC ABG O2 Sat Sesar Test O2 Delivery Device POC O2 Rate Minute Ventilation POC FiO2 Tidal Volume PEEP POC Sodium Sodium POC Potassium Potassium Chloride Carbon Dioxide Anion Gap BUN Creatinine Est Cr Clr Drug Dosing Est GFR ( Amer) Est GFR (Non-Af Amer) BUN/Creatinine Ratio Glucose POC Glucose (other) 106 H 122 H Osmolality Lactate Calcium Phosphorus Magnesium Total Bilirubin AST ALT Alkaline Phosphatase Total Creatine Kinase Total Protein Albumin Globulin Albumin/Globulin Ratio Serotonin Release Assay Procalcitonin Urine Osmolality Ur Random Sodium Random Vancomycin Heparin Depend Plt Ab Hepatitis A IgM Ab NON-REACTIVE Hep B Core IgM Ab NON-REACTIVE 08/16/21 08/16/21 08/16/21 15:23 16:12 16:39 WBC RBC Hgb POC Hgb Hct POC Hct MCV MCH MCHC RDW Std Deviation RDW Coeff of Arminda Plt Count MPV Absolute Nucleated RBC Nucleated RBC % (auto) Platelet Estimate PT INR APTT PTT Ratio Sample Site Art Line POC pH 7.40 POC pCO2 52 H POC pO2 81 POC HCO3 32 H POC Total CO2 33 H POC Base Excess 7.0 H ABG pH (Temp Correct) ABG pCO2 (Temp Corrct POC ABG pO2 at Pt Temp POC ABG O2 Sat 96.0 H Sesar Test NA O2 Delivery Device Ventilator POC O2 Rate 16 Minute Ventilation 6.4 POC FiO2 75 Tidal Volume 400 PEEP 8 POC Sodium Sodium POC Potassium Potassium Chloride Carbon Dioxide Anion Gap BUN Creatinine Est Cr Clr Drug Dosing Est GFR ( Amer) Est GFR (Non-Af Amer) BUN/Creatinine Ratio Glucose POC Glucose (other) 153 H 158 H Osmolality Lactate Calcium Phosphorus Magnesium Total Bilirubin AST ALT Alkaline Phosphatase Total Creatine Kinase Total Protein Albumin Globulin Albumin/Globulin Ratio Serotonin Release Assay Procalcitonin Urine Osmolality Ur Random Sodium Random Vancomycin Heparin Depend Plt Ab Hepatitis A IgM Ab Hep B Core IgM Ab 08/16/21 08/16/21 08/16/21 18:10 19:30 20:22 WBC RBC Hgb POC Hgb Hct POC Hct MCV MCH MCHC RDW Std Deviation RDW Coeff of Arminda Plt Count MPV Absolute Nucleated RBC Nucleated RBC % (auto) Platelet Estimate PT INR APTT PTT Ratio Sample Site POC pH POC pCO2 POC pO2 POC HCO3 POC Total CO2 POC Base Excess ABG pH (Temp Correct) ABG pCO2 (Temp Corrct POC ABG pO2 at Pt Temp POC ABG O2 Sat Sesar Test O2 Delivery Device POC O2 Rate Minute Ventilation POC FiO2 Tidal Volume PEEP POC Sodium Sodium POC Potassium Potassium Chloride Carbon Dioxide Anion Gap BUN Creatinine Est Cr Clr Drug Dosing Est GFR ( Amer) Est GFR (Non-Af Amer) BUN/Creatinine Ratio Glucose POC Glucose (other) 186 H 146 H Osmolality Lactate Calcium Phosphorus Magnesium Total Bilirubin AST ALT Alkaline Phosphatase Total Creatine Kinase Total Protein Albumin Globulin Albumin/Globulin Ratio Serotonin Release Assay Procalcitonin Urine Osmolality Ur Random Sodium Random Vancomycin 18.1 Heparin Depend Plt Ab Hepatitis A IgM Ab Hep B Core IgM Ab 08/16/21 08/16/21 08/16/21 20:32 20:44 21:42 WBC RBC Hgb POC Hgb 8.8 L Hct POC Hct 26 L MCV MCH MCHC RDW Std Deviation RDW Coeff of Arminda Plt Count MPV Absolute Nucleated RBC Nucleated RBC % (auto) Platelet Estimate PT INR APTT PTT Ratio Sample Site Art Line POC pH 7.56 H* POC pCO2 40 POC pO2 104 H POC HCO3 35 H POC Total CO2 36 H POC Base Excess 13.0 H ABG pH (Temp Correct) 7.552 H* ABG pCO2 (Temp Corrct 40 POC ABG pO2 at Pt Temp 106 POC ABG O2 Sat 99.0 H Sesar Test NA O2 Delivery Device Ventilator POC O2 Rate 16 Minute Ventilation 6.4 POC FiO2 70 Tidal Volume 400 PEEP 8 POC Sodium 124 L Sodium POC Potassium 3.9 Potassium Chloride Carbon Dioxide Anion Gap BUN Creatinine Est Cr Clr Drug Dosing Est GFR ( Amer) Est GFR (Non-Af Amer) BUN/Creatinine Ratio Glucose POC Glucose (other) 165 H 157 H Osmolality Lactate Calcium Phosphorus Magnesium Total Bilirubin AST ALT Alkaline Phosphatase Total Creatine Kinase Total Protein Albumin Globulin Albumin/Globulin Ratio Serotonin Release Assay Procalcitonin Urine Osmolality Ur Random Sodium Random Vancomycin Heparin Depend Plt Ab Hepatitis A IgM Ab Hep B Core IgM Ab 08/16/21 08/16/21 08/16/21 23:21 23:21 23:21 WBC RBC Hgb 8.8 L POC Hgb Hct 25.9 L POC Hct MCV MCH MCHC RDW Std Deviation RDW Coeff of Arminda Plt Count MPV Absolute Nucleated RBC Nucleated RBC % (auto) Platelet Estimate PT INR APTT PTT Ratio Sample Site POC pH POC pCO2 POC pO2 POC HCO3 POC Total CO2 POC Base Excess ABG pH (Temp Correct) ABG pCO2 (Temp Corrct POC ABG pO2 at Pt Temp POC ABG O2 Sat Sesar Test O2 Delivery Device POC O2 Rate Minute Ventilation POC FiO2 Tidal Volume PEEP POC Sodium Sodium 126 L POC Potassium Potassium 4.2 Chloride 80 L Carbon Dioxide 29 Anion Gap 17 H BUN 51 H Creatinine 3.45 H D Est Cr Clr Drug Dosing 14.0 Est GFR ( Amer) 15.1 Est GFR (Non-Af Amer) 13.0 BUN/Creatinine Ratio 14.8 Glucose 153 H POC Glucose (other) Osmolality Lactate 5.5 H* Calcium 6.6 L Phosphorus 5.9 H Magnesium 1.9 Total Bilirubin AST ALT Alkaline Phosphatase Total Creatine Kinase Total Protein Albumin Globulin Albumin/Globulin Ratio Serotonin Release Assay Procalcitonin Urine Osmolality Ur Random Sodium Random Vancomycin Heparin Depend Plt Ab Hepatitis A IgM Ab Hep B Core IgM Ab 08/16/21 08/17/21 08/17/21 23:38 01:37 03:45 WBC RBC Hgb POC Hgb Hct POC Hct MCV MCH MCHC RDW Std Deviation RDW Coeff of Arminda Plt Count MPV Absolute Nucleated RBC Nucleated RBC % (auto) Platelet Estimate PT INR APTT PTT Ratio Sample Site POC pH POC pCO2 POC pO2 POC HCO3 POC Total CO2 POC Base Excess ABG pH (Temp Correct) ABG pCO2 (Temp Corrct POC ABG pO2 at Pt Temp POC ABG O2 Sat Sesar Test O2 Delivery Device POC O2 Rate Minute Ventilation POC FiO2 Tidal Volume PEEP POC Sodium Sodium POC Potassium Potassium Chloride Carbon Dioxide Anion Gap BUN Creatinine Est Cr Clr Drug Dosing Est GFR ( Amer) Est GFR (Non-Af Amer) BUN/Creatinine Ratio Glucose POC Glucose (other) 163 H 164 H 174 H Osmolality Lactate Calcium Phosphorus Magnesium Total Bilirubin AST ALT Alkaline Phosphatase Total Creatine Kinase Total Protein Albumin Globulin Albumin/Globulin Ratio Serotonin Release Assay Procalcitonin Urine Osmolality Ur Random Sodium Random Vancomycin Heparin Depend Plt Ab Hepatitis A IgM Ab Hep B Core IgM Ab 08/17/21 08/17/21 08/17/21 03:49 04:17 04:17 WBC 13.06 H RBC 3.33 L Hgb 9.1 L POC Hgb 9.5 L Hct 26.5 L POC Hct 28 L MCV 79.6 L MCH 27.3 MCHC 34.3 RDW Std Deviation 50.5 H RDW Coeff of Arminda 17.2 H Plt Count 79 L MPV 10.9 H Absolute Nucleated RBC 0.18 H Nucleated RBC % (auto) 1.4 Platelet Estimate Decreased L PT INR APTT PTT Ratio Sample Site Art Line POC pH 7.58 H* POC pCO2 35 POC pO2 77 L POC HCO3 33 H POC Total CO2 34 H POC Base Excess 11.0 H ABG pH (Temp Correct) 7.580 H* ABG pCO2 (Temp Corrct 35 POC ABG pO2 at Pt Temp 77 POC ABG O2 Sat 97.0 H Sesar Test NA O2 Delivery Device Ventilator POC O2 Rate 16 Minute Ventilation 6.4 POC FiO2 40 Tidal Volume 400 PEEP 8 POC Sodium 124 L Sodium 121 L POC Potassium 4.3 Potassium 4.3 Chloride 77 L Carbon Dioxide 29 Anion Gap 15 H BUN 58 H Creatinine 3.70 H Est Cr Clr Drug Dosing 13.0 Est GFR ( Amer) 13.9 Est GFR (Non-Af Amer) 12.0 BUN/Creatinine Ratio 15.7 Glucose 160 H POC Glucose (other) Osmolality Lactate Calcium 6.6 L Phosphorus 6.4 H Magnesium 2.0 Total Bilirubin 1.4 H AST 1246 H ALT 639 H Alkaline Phosphatase 123 H Total Creatine Kinase 6720 H Total Protein 4.9 L Albumin 2.2 L Globulin 2.7 Albumin/Globulin Ratio 0.8 L Serotonin Release Assay Procalcitonin Urine Osmolality Ur Random Sodium Random Vancomycin Heparin Depend Plt Ab Hepatitis A IgM Ab Hep B Core IgM Ab 08/17/21 08/17/21 08/17/21 04:17 04:17 07:18 WBC RBC Hgb POC Hgb Hct POC Hct MCV MCH MCHC RDW Std Deviation RDW Coeff of Arminda Plt Count MPV Absolute Nucleated RBC Nucleated RBC % (auto) Platelet Estimate PT INR APTT PTT Ratio Sample Site POC pH POC pCO2 POC pO2 POC HCO3 POC Total CO2 POC Base Excess ABG pH (Temp Correct) ABG pCO2 (Temp Corrct POC ABG pO2 at Pt Temp POC ABG O2 Sat Sesar Test O2 Delivery Device POC O2 Rate Minute Ventilation POC FiO2 Tidal Volume PEEP POC Sodium Sodium POC Potassium Potassium Chloride Carbon Dioxide Anion Gap BUN Creatinine Est Cr Clr Drug Dosing Est GFR ( Amer) Est GFR (Non-Af Amer) BUN/Creatinine Ratio Glucose POC Glucose (other) 173 H Osmolality Lactate 5.3 H* Calcium Phosphorus Magnesium Total Bilirubin AST ALT Alkaline Phosphatase Total Creatine Kinase Total Protein Albumin Globulin Albumin/Globulin Ratio Serotonin Release Assay Procalcitonin 135.67 H Urine Osmolality Ur Random Sodium Random Vancomycin Heparin Depend Plt Ab Hepatitis A IgM Ab Hep B Core IgM Ab 08/17/21 08/17/21 08/17/21 08:30 08:30 09:00 WBC RBC Hgb POC Hgb Hct POC Hct MCV MCH MCHC RDW Std Deviation RDW Coeff of Arminda Plt Count MPV Absolute Nucleated RBC Nucleated RBC % (auto) Platelet Estimate PT INR APTT PTT Ratio Sample Site POC pH POC pCO2 POC pO2 POC HCO3 POC Total CO2 POC Base Excess ABG pH (Temp Correct) ABG pCO2 (Temp Corrct POC ABG pO2 at Pt Temp POC ABG O2 Sat Sesar Test O2 Delivery Device POC O2 Rate Minute Ventilation POC FiO2 Tidal Volume PEEP POC Sodium Sodium 122 L POC Potassium Potassium 4.0 Chloride 79 L Carbon Dioxide 30 Anion Gap 13 H BUN 62 H Creatinine 3.72 H Est Cr Clr Drug Dosing 13.3 Est GFR ( Amer) 13.8 Est GFR (Non-Af Amer) 11.9 BUN/Creatinine Ratio 16.7 Glucose 160 H POC Glucose (other) Osmolality Pending Lactate Calcium 6.3 L Phosphorus Magnesium Total Bilirubin AST ALT Alkaline Phosphatase Total Creatine Kinase Total Protein Albumin Globulin Albumin/Globulin Ratio Serotonin Release Assay Procalcitonin Urine Osmolality Pending Ur Random Sodium Random Vancomycin Heparin Depend Plt Ab Hepatitis A IgM Ab Hep B Core IgM Ab 08/17/21 08/17/21 08/17/21 09:00 09:17 09:17 WBC RBC Hgb POC Hgb Hct POC Hct MCV MCH MCHC RDW Std Deviation RDW Coeff of Arminda Plt Count MPV Absolute Nucleated RBC Nucleated RBC % (auto) Platelet Estimate PT 17.0 H INR 1.6 H APTT 39.6 H PTT Ratio 1.4 Sample Site POC pH POC pCO2 POC pO2 POC HCO3 POC Total CO2 POC Base Excess ABG pH (Temp Correct) ABG pCO2 (Temp Corrct POC ABG pO2 at Pt Temp POC ABG O2 Sat Sesar Test O2 Delivery Device POC O2 Rate Minute Ventilation POC FiO2 Tidal Volume PEEP POC Sodium Sodium POC Potassium Potassium Chloride Carbon Dioxide Anion Gap BUN Creatinine Est Cr Clr Drug Dosing Est GFR ( Amer) Est GFR (Non-Af Amer) BUN/Creatinine Ratio Glucose POC Glucose (other) Osmolality Lactate Calcium Phosphorus Magnesium Total Bilirubin AST ALT Alkaline Phosphatase Total Creatine Kinase Total Protein Albumin Globulin Albumin/Globulin Ratio Serotonin Release Assay Pending Procalcitonin Urine Osmolality Ur Random Sodium Pending Random Vancomycin Heparin Depend Plt Ab Pending Hepatitis A IgM Ab Hep B Core IgM Ab Diagnostic Findings Telemetry personally reviewed: Currently sinus rhythm with PACs in a bigeminal fashion. AFib converted to sinus rhythm on 08/16/2021 at 1:08 p.m.. No ventricular arrhythmia noted. Medications Administered Current Inpatient Medications Acetaminophen (Acetaminophen Susp 500 Mg/15.6 Ml Udp) 500 mg PO Q6H PRN PRN Reason: Fever Stop: 09/13/21 09:57 Last Admin: 08/14/21 10:42 Dose: 500 mg Documented by: Heparin Sodium (Beef Lung) (Heparin 10 Unit/Ml 5 Ml Flush) 5 ml FLUSH PRN PRN PRN Reason: Flush Stop: 09/15/21 00:44 Heparin Sodium/Dextrose (Heparin Sodium/Dextrose) 25,000 units in 500 mls @ 0 mls/hr IV .Q0M NII; Protocol Stop: 09/13/21 04:06 Last Titration: 08/15/21 19:06 Dose: 0 units/hr, 0 mls/hr Documented by: Norepinephrine Bitartrate (Levophed/D5w) 8 mg in 508 mls @ 16.962 mls/hr IV .Q24H NII; Protocol Stop: 09/13/21 04:29 Last Titration: 08/17/21 10:15 Dose: 0.06 mcg/kg/min, 17 mls/hr Documented by: Phenylephrine HCl 20 mg/ (Dextrose) 502 mls @ 0 mls/hr IV .Q0M NII; Protocol Stop: 09/13/21 08:14 Last Titration: 08/16/21 19:16 Dose: 0 mcg/kg/min, 0 mls/hr Documented by: Famotidine 20 mg/ Syringe 5 mls @ 2.5 mls/min IV DAILY [facility] Stop: 09/13/21 10:59 Last Admin: 08/16/21 09:09 Dose: 2.5 mls/min Documented by: Pantoprazole Sodium 40 mg/ (Syringe) 10 mls @ 5 mls/min IV DAILY@1100 [facility] Stop: 09/14/21 10:59 Last Admin: 08/16/21 12:00 Dose: 5 mls/min Documented by: Insulin Human Regular 250 (units/ Sodium Chloride) 250 mls @ 1.2 mls/hr IV .Q24H [facility]; Protocol Stop: 09/14/21 13:14 Last Titration: 08/17/21 06:57 Dose: 1.2 unit/hr, 1.2 mls/hr Documented by: Esmolol HCl (Brevibloc) 2,500 mg in 250 mls @ 0 mls/hr IV .Q0M [facility]; Protocol Stop: 09/15/21 10:59 Last Admin: 08/17/21 10:15 Dose: Not Given Documented by: Caspofungin 50 mg/ Sodium (Chloride) 257.1429 mls @ 257.143 mls/hr IV DAILY [facility] Stop: 08/27/21 08:59 Last Infusion: 08/17/21 10:12 Dose: Infused Documented by: Meropenem 500 mg/ Syringe 10 mls @ 2 mls/min IV Q12H [facility]; Protocol Stop: 08/26/21 11:59 Last Admin: 08/16/21 23:16 Dose: 2 mls/min Documented by: Hydrocortisone Sodium (Succinate 50 mg/ Syringe) 1 mls @ 4 mls/min IV Q12H [facility] Stop: 09/16/21 17:59 Insulin Aspart (Insulin Aspart Per Unit) 0 units SC ACHS [facility] Stop: 09/14/21 16:29 Last Admin: 08/17/21 07:33 Dose: Not Given Documented by: Miscellaneous Information (Vancomycin Consult Active) 1 ea N/A UD PRN PRN Reason: Consult Stop: 09/13/21 09:56 Miscellaneous Information (Pharmacy Glycemic Mgmt Consult) 1 ea N/A UD PRN PRN Reason: Consult Stop: 09/14/21 13:31 Miscellaneous Information (Meropenem Consult Active) 1 ea N/A UD PRN PRN Reason: Consult Stop: 09/15/21 11:26 Sodium Chloride (Sodium Chlor 7% 4 Ml Neb) 4 ml NEB BIDR NII Stop: 09/16/21 18:59 Vecuronium [place] (Vecuronium [place] 10 Mg Vial) 5 mg IV Q2H PRN PRN Reason: VENTILATOR ASYNCHRONY Stop: 09/13/21 09:55 PG Care Time/CCT Total # of Minutes Spent Total Time Spent with Patient: Total time spent is greater than 50% in coordination of care (as documented) at patient's floor/unit and/or counseling patient: Coding Level of Care Code 81279 Subseq Hosp Care Lvl 3 Diagnoses Atrial fibrillation with rapid ventricular response I48.91 Septic shock A41.9; R65.21 Acute respiratory failure with hypoxia and hypercapnia J96.01; J96.02
[2021-08-17] MEDS: PANTOprazole 40 MG in SYRINGE 0 ML IV SCH (11:24)
[2021-08-17] MEDS: FAMOTIDINE 20 MG in SYRINGE 3 ML IV SCH ×2 (11:27→11:28)
--- NOTE | 2021-08-17 14:02 | Billing Data ---
Date of Service August 17, 2021 Coding Level of Care Code 59498 Subseq Hosp Care Lvl 1
[2021-08-17] MEDS ORDERED: LORazepam 0.5 MG TAB PO PRN (14:07)
[2021-08-17] MEDS ORDERED: GLYCOPYRROLATE 0.2 MG/ML VIAL IV PRN (14:07)
[2021-08-17] MEDS ORDERED: ONDANSETRON INJ 2 MG/ML 2 ML VIAL IV PRN (14:07)
[2021-08-17] MEDS ORDERED: STAT IV Infusion **Titration per Protocol STA (14:07)
[2021-08-17] MEDS ORDERED: MoRPHine SULFATE 2 MG/ML CARP IV PRN (14:07)
[2021-08-17] MEDS ORDERED: PROMETHAZINE HCL 12.5 MG in SODIUM CHLORIDE 0.9% 50 ML IV PRN (14:07)
[2021-08-17] MEDS ORDERED: ONDANSETRON 4 MG OD TAB SL PRN (14:07)
[2021-08-17] MEDS ORDERED: LORazepam 2 MG/1 ML VIAL IV PRN (14:07)
[2021-08-17] MEDS ORDERED: MoRPHine SULF/NSS 250 MG/250 ML BTL IV SCH (14:15)
--- NOTE | 2021-08-17 15:15 | Death Pronouncement Note ---
Date of Service August 17, 2021 Pronouncement Note Admission Date Admission Date: August 14, 2021 Contributing Factors (1) Acute respiratory failure with hypoxia and hypercapnia: (2) Pneumonia: (3) Atrial fibrillation with rapid ventricular response: (4) Sepsis: (5) Hypokalemia: (6) BERE (acute kidney injury): (7) Hypothyroidism: (8) Hypertension: (9) Diabetes: (10) Elevated troponin: (11) Hypocalcemia: (12) Lactic acidosis: (13) Anxiety: Summary Additional details: Patient has been critically ill for the past 3 days. She has been in acute respiratory failure secondary to septic shock caused by pneumonia. Today patient progressively became more bradycardic and eventually reached asystole. Patient was a DNR and no resuscitation's were performed. Nursing informed me of the patient's asystole and I came to the room and performed an examination and declared that the patient had passed at 14:47 on August 17, 2021. The patient's family was informed shortly after. Additional Data Confirmation of : no pulse, no respirations, no heart sounds and pupils fixed and dilated Attending/PCP notified?: Yes Attending physician: Antonio Vasquez, DO Was code activated?: No Autopsy requested?: No
--- NOTE | 2021-08-17 15:16 | Discharge Summary ---
Date of Service August 17, 2021 Admission HPI Per Admitting Provider Maite Mcclellan is a 65yo female with PMHx significant for a-fib (on Eliquis and Toprol), T2DM (A1c 5.8 in 12/2019), Hypothyroidism, and HLD who presented to [facility] ED on 08/14 for fatigue, weakness, malaise, productive cough, nausea, NB/NB vomiting several times and inability to tolerate PO for 1 day. Patient reports that she was in her usual state of health until 08/13, when she woke up with above symptoms. Denies fever/chills or body aches. Denies dysuria or urinary frequency/urgency. Denies diarrhea. Denies rash. Denies recent sick contacts. She does report h/o PNA x2 over the last 1-2 years that required hospitalization but not here at [facility]. Denies recent changes to medications. Does have a 50 pack year smoking history. Denies alcohol use or other drug use. In the ED the patient was tachycardic to 160bpm (a-fib RVR), tachypneic to 33, hypotensive to 87/69 and hypoxic to 70s. She was given 2L NSS boluses and BP went up to 120s/90s, but she became progressively more hypoxic and required up to 15L oxymask but remained hypoxic in low 80s. Ultimately the patient was intubated in the ED. Laboratory evaluation was significant for WBC 21.92 with neutrophilic predominance and left shift. Lactate 11.3, Procalcitonin 127.86. Na 135, K 2.9, Phos 6.6, Mg 1.9, HCO3 10, AG 26, Cr 2.36 (baseline 1), Troponin 0.41. UA without nitrite/LE/WBC/bacteria. COVID negative. CXR and CTA chest showing airspace consolidation in RLL. No pleural effusion or PE. CT head and CT A/P without acute abnormalities. In addition to NSS boluses, patient was given Cefepime x1 and potassium acetate x2 before being intubated. Principal Diagnosis Acute Hypoxemic Respiratory Failure Discharge Exam Patient's pupils were fixed and dilated, no pulse was palpable at the radial artery or carotid, and no respirations present. Discharge Data Allergies Allergy/AdvReac Type Severity Reaction Status Date / Time ciprofloxacin [From Cipro] Allergy Unknown Unknown Unverified 08/15/21 13:54 Penicillins Allergy Unknown Unknown Unverified 08/15/21 13:54 Sulfa (Sulfonamide Allergy Unknown Unknown Unverified 08/15/21 13:54 Antibiotics) Consultations 08/14/21 01:56 ED Decision to Admit Stat 08/14/21 04:07 Consult Change Attendant Routine 08/15/21 07:45 Consult General Surgery Routine 08/16/21 11:26 Consult Cardiology Routine 08/16/21 11:30 Consult Nephrology Routine 08/16/21 16:15 Consult Gastroenterology Routine Procedures Performed Operation Date: 08/15/21 09:00 Actual Procedures p Exploratory Laparotomy Small Bowel Resection, Wound vac Application(Not Applicable) - Eduardo Nelson MD, FACS Ordered Studies 08/14/21 00:23 CT abd pelvis IV con only Urgent CT angio chest PE protocol Urgent CT head/brain wo con Urgent 08/15/21 02:37 CT abd pelvis wo con Urgent CT chest diagnostic wo con Urgent CT head/brain wo con Urgent 08/16/21 12:22 MR brain wo con Urgent Hospital Course (1) Acute respiratory failure with hypoxia and hypercapnia: Maite Mcclellan is a 65yo female with PMHx significant for a-fib (on Eliquis and Toprol), h/o cervical cancer, T2DM (A1c 5.8 in 12/2019), Hypothyroidism, and HLD who presented to [facility] ED on 08/14 for fatigue, weakness, malaise, productive cough, nausea, NB/NB vomiting several times and inability to tolerate PO for 1 day. Found to be septic with severe lactic acidosis and resultant acute respiratory failure, requiring intubation in the ED. Acute Abdomen -CT abd/pelvis: Interval development of trace gas within the left hepatic lobe. This could reflect portal venous gas or pneumobilia. No definite pneumatosis however mesenteric stranding associated with multiple small bowel loops. Therefore, small bowel ischemia is within the differential. -patient went for ex lap with surgery, removed large section of necrotic small bowel, wound vac in place, POD2 -mortality risk high, family is aware Sepsis with Septic Shock; RLL Pneumonia Respiratory failure likely primarily due to severe lactic acidosis in setting of sepsis due to RLL PNA. Patient decompensated quickly which was likely due to a- fib with RVR in addition to possible aspiration. Intubated/sedated in ED. Admit to ICU. - lactate 9.3 --> 20.3-->12.2--> 5.5-->5.3 - procalcitonin 127.86 --> >200 - WBC 10.7-->8.91-->13.06 - imaging with RLL PNA CTA negative for PE - received Cefepime x1 in the ED, will continue with Cefepime (renal dosing), metronizadole - MRSA nares positive, added vancomycin - s/p 2L NSS boluses in ED, will continue with Bicarb - blood cx - alpha strep, not enterococcus - trend lactate, trend CBC in AM - on Levophed - patient previously proned without improvement, returned to supine position - after abd ex lap, able to wean down pressors and FiO2 down from 100% to 80% - management per critical care, appreciate recommendations Acute Hypoxic Hypercapnic Respiratory Failure -2/2 to RLL PNA, sepsis -Intubated with mechanical ventilation, off sedation -trend ABGs, pulse ox monitoring -patient was proned, returned to supine position Lactic Acidosis Lactate 11.3, HCO3 10, AG 26 on admit. Due to sepsis 2/2 PNA. - ordered NaHCO3 bolus and drip -> on hold - trend CMP in AM BERE Cr 2.36, normal baseline. 2/2 to sepsis. - given IVF in ER, careful with additional fluids given pulm status -last creat 3.72 -davidson in place DM -pharmacy consulted, per their recs Electrolyte Abnormalities - K 2.9 --> 4.0 - continue to trend - suspect improvement with treatment of sepsis/PNA Elevated Troponin - trended up to 0.64 --> 0.53 Atrial Fibrillation with RVR Likely 2/2 sepsis/PNA. Recent TTE in 03/2021 with EF 60-65%. - started Heparin gtt without bolus, as patient has CHADS-VASc score of 4 and will not be able to take Eliquis surgery recommends heparin drip without bolus - hold home Toprol XL - required cardioversion and esmolol drip yesterday, esmolol d/c'd Chronic Medical Conditions HTN/HLD: hold home Losartan, Rosuvastatin and Aspirin Depression/anxiety: hold home Sertraline Diabetic Neuropathy: hold home Gabapentin Hypothyroidism: hold home Synthroid Disposition: (2) Pneumonia: (3) Atrial fibrillation with rapid ventricular response: (4) Sepsis: (5) Hypokalemia: (6) BERE (acute kidney injury): (7) Hypothyroidism: (8) Hypertension: (9) Diabetes: (10) Elevated troponin: (11) Hypocalcemia: (12) Lactic acidosis: (13) Anxiety: Total Time Total Time Spent Total Time Spent (In Minutes): 30 Discharge Plan Discharge Items Patient Disposition: Other Date/Time: 08/17/21 14:47
--- NOTE | 2021-08-17 16:28 | Billing Data ---
Date of Service August 17, 2021 Coding Level of Care Code D/C DAY MANAGEMENT <30 MINS Comment disregard [id number]
[2021-08-17] MEDS ORDERED: HYDROCORTISONE SOD 50 MG in SYRINGE 0 ML IV SCH (18:00)
[2021-08-17] MEDS ORDERED: SODIUM CHLOR 7% 4 ML NEB NEB SCH (19:00)
--- NOTE | 2021-08-18 06:30 | Electrocardiogram Report ---
Test Reason : Blood Pressure : / mmHG Vent. Rate : 164 BPM Atrial Rate : 078 BPM P-R Int : 000 ms QRS Dur : 070 ms QT Int : 306 ms P-R-T Axes : 000 003 062 degrees QTc Int : 505 ms Atrial fibrillation with rapid ventricular response with premature ventricular or aberrantly conducte d complexes Low voltage QRS Abnormal ECG When compared with ECG of 14-AUG-2021 06:05, Atrial fibrillation has replaced Sinus rhythm Vent. rate has increased BY 58 BPM Confirmed by Josh Castro ([id number]) on 08/18/2021 6:30:02 AM Referred By: REFERRED SELF Confirmed By:Josh Castro
[2021-08-18 11:24] LABS: iSTAT Creatinine 2.6 mg/dl (0.6-1.3); iSTAT Hemoglobin 7.1 g/dl (12.0-16.0); iSTAT Ionized Calcium 0.65 mmol/l (1.12-1.32); iSTAT Potassium 4.2 mmol/L (3.3-5.0)
== END 2021-08-17 16:00 | disposition expired | DRG 853 ==
LOC: ED 00:17 → 1E 02:30 → SUATTDRO 02:30 → 1E 04:12